=== PATIENT | female | born 1990 | race Caucasian/White ===

== ENCOUNTER 2016-11-21 20:02 | Emergency (ER) | payer MEDICAID ==
--- NOTE | 2016-11-21 20:32 | ER Document Report ---
ED Medical Screen (RME) - General Chief Complaint: Suicidal Ideation Stated Complaint: SUICIDAL IDEATION Notes: This 26-year-old female patient comes emergency room reporting hearing voices, suicidal ideation and homicidal ideation, and urged cut. All this started last night. One precipitating factor is she misses her children, who are staying with her mother by court order and child protective services. She reports that "life sucks and awoke today". Prior overdose 3 years ago. Prior episodes of deep scratching to the forearms and transverse lacerations to the forearms. She reports speaking with Dr. Dent's office and was referred to the emergency room. She states that she does want to get help this time. I have greeted and performed a rapid initial assessment of this patient. A comprehensive ED assessment and evaluation of the patient, analysis of test results and completion of the medical decision making process will be conducted by additional ED providers. TRAVEL OUTSIDE OF THE [place] IN LAST 30 DAYS: No - Related Data Allergies/Adverse Reactions: alprazolam [From Xanax] Allergy (Severe, Verified 03/30/16 15:24) CHEMICAL REACTION RESULTING IN SEIZURE amoxicillin [Amoxicillin] Allergy (Severe, Verified 03/30/16 15:24) Difficulty breathing Amphetamine Aspartate * [From Adderall] Allergy (Severe, Verified 03/30/16 15:24 ) Anaphylaxis amphetamine sulfate [From Adderall] Allergy (Severe, Verified 03/30/16 15:24) Anaphylaxis bupropion HCl [From Wellbutrin] Allergy (Severe, Verified 03/30/16 15:24) Anaphylaxis cephalexin [Cephalexin] Allergy (Severe, Verified 03/30/16 15:24) Anaphylaxis dextroamphetamine [From Adderall] Allergy (Severe, Verified 03/30/16 15:24) Anaphylaxis latex [Latex] Allergy (Severe, Verified 03/30/16 15:24) Anaphylaxis naproxen [Naproxen] Allergy (Severe, Verified 04/18/16 06:57) Anaphylaxis quetiapine fumarate [From Seroquel] Allergy (Severe, Verified 04/18/16 06:57) Anaphylaxis sertraline HCl [From Zoloft] Allergy (Severe, Verified 04/18/16 06:57) Anaphylaxis shellfish derived [Shellfish Derived] Allergy (Severe, Verified 04/18/16 06:57) Anaphylaxis tramadol [Tramadol] Allergy (Severe, Verified 04/18/16 06:57) Anaphylaxis ziprasidone HCl [From Geodon] Allergy (Severe, Verified 04/18/16 06:57) Anaphylaxis ziprasidone mesylate [From Geodon] Allergy (Severe, Verified 04/18/16 06:57) Anaphylaxis Coconut * [Coconut] Allergy (Mild, Verified 04/18/16 06:57) Pruritis aluminum hydroxide [From Maalox] Allergy (Verified 04/18/16 06:57) Anaphylaxis calcium carbonate [From Maalox] Allergy (Verified 04/18/16 06:57) Anaphylaxis Magnesium Hydroxide [From Maalox] Allergy (Verified 04/18/16 06:57) Anaphylaxis simethicone [From Maalox] Allergy (Verified 04/18/16 06:57) Anaphylaxis seafood Allergy (Uncoded 03/30/16 15:24) Past Medical History - Past Medical History Cardiac Medical History: Reports: Hx Hypertension Pulmonary Medical History: Reports: Hx Asthma, Hx Bronchitis, Hx Pneumonia Neurological Medical History: Reports: Hx Seizures - Pseudoseizures Renal/ Medical History: Denies: Hx Peritoneal Dialysis GI Medical History: Reports: Hx Gastroesophageal Reflux Disease Musculoskeltal Medical History: Reports Hx Arthritis Psychiatric Medical History: Reports: Hx Anxiety, Hx Attention Deficit Hyperactivity Disorder, Hx Bipolar Disorder, Hx Depression, Hx Post Traumatic Stress Disorder Past Surgical History: Reports: Hx Appendectomy, Hx Section, Hx Tonsillectomy, Hx Tubal Ligation - Immunizations Immunizations up to date: No Hx Diphtheria, Pertussis, Tetanus Vaccination: Yes - [id number] Physical Exam - Vital signs Vitals: Temp Pulse Resp BP Pulse Ox 97.6 F 83 20 132/83 H 97 11/21/16 20:15 11/21/16 20:15 11/21/16 20:15 11/21/16 20:15 11/21/16 20:15 Course - Vital Signs Vital signs: Temp Pulse Resp BP Pulse Ox 97.6 F 83 20 132/83 H 97 11/21/16 20:15 11/21/16 20:15 11/21/16 20:15 11/21/16 20:15 11/21/16 20:15
[2016-11-21 20:56] LABS: ABSOLUTE EOSINOPHILS # (AUTO) 0.2 10^3/uL (0.0-0.6); ABSOLUTE LYMPHOCYTES (AUTO) 2.7 10^3/uL (0.5-4.7); ABSOLUTE MONOCYTES (AUTO) 0.3 10^3/uL (0.1-1.4); ABSOLUTE NEUT (AUTO) 3.5 10^3/uL (1.7-8.2); BASOPHILS % (AUTO) 0.6 % (0-2); EOSINOPHILS % (AUTO) 3.5 % (0-6); HEMATOCRIT 38.7 % (36.0-47.0); HEMOGLOBIN 13.2 g/dL (12.0-15.5); HGB HCT DIFFERENCE 0.9; LYMPHOCYTES % (AUTO) 39.7 % (13-45); MEAN CORPUSCULAR HEMOGLOBIN 30.1 pg (27.0-33.4); MEAN CORPUSCULAR HGB CONC 34.2 g/dL (32.0-36.0); MEAN CORPUSCULAR VOLUME 88 fl (80-97); MONOCYTES % (AUTO) 4.5 % (3-13); RED CELL DISTRIBUTION WIDTH 13.6 % (11.5-14.0); SEGMENTED NEUTROPHILS % (AUTO) 51.7 % (42-78); WHITE BLOOD COUNT 6.8 10^3/uL (4.0-10.5)
[2016-11-21 20:59] LABS: APPEARANCE,URINE SLIGHTLY-CLOUDY; BILIRUBIN,URINE NEGATIVE (NEGATIVE); GLUCOSE, URINE NEGATIVE (NEGATIVE); KETONES,URINE NEGATIVE (NEGATIVE); LEUKOCYTE ESTERASE,URINE SMALL (NEGATIVE); NITRITE,URINE NEGATIVE (NEGATIVE); PROTEIN,URINE NEGATIVE (NEGATIVE); URINE SPECIFIC GRAVITY 1.011; UROBILINOGEN,URINE NEGATIVE mg/dL (<2.0)
[2016-11-21 21:14] LABS: URINE BARBITURATES SCREEN NEGATIVE; URINE METHADONE SCREEN NEGATIVE; URINE OPIATES LOW NEGATIVE; URINE PHENCYCLIDINE SCREEN NEGATIVE
[2016-11-21 21:19] LABS: ALANINE AMINOTRANSFERASE 42 U/L (9-52); ALBUMIN 4.9 g/dL (3.5-5.0); ALKALINE PHOSPHATASE 54 U/L (38-126); ANION GAP 15 (5-19); ASPARTATE AMINO TRANSFERASE 20 U/L (14-36); BILIRUBIN,DIRECT 0.1 mg/dL (0.0-0.4); BILIRUBIN,TOTAL 0.3 mg/dL (0.2-1.3); BLOOD UREA NITROGEN 10 mg/dL (7-20); CARBON DIOXIDE 20 mmol/L (22-30); CHLORIDE 109 mmol/L (98-107); CREATININE RESULT 0.59 mg/dL (0.52-1.25); GLUCOSE 129 mg/dL (75-110); POTASSIUM 4.4 mmol/L (3.6-5.0); SODIUM 143.7 mmol/L (137-145); TOTAL PROTEIN 7.3 g/dL (6.3-8.2)
[2016-11-21 21:20] LABS: ALCOHOL < 10 mg/dL (NONE DETECTED)
--- NOTE | 2016-11-21 22:28 | ER Document Report ---
ED General - General Chief Complaint: Suicidal Ideation Stated Complaint: SUICIDAL IDEATION Time seen by provider: 22:28 Mode of Arrival: Ambulatory TRAVEL OUTSIDE OF THE [place] IN LAST 30 DAYS: No - HPI Notes: This 26-year-old female patient comes emergency room reporting hearing voices, suicidal ideation and homicidal ideation, and urged cut. All this started last night. One precipitating factor is she misses her children, who are staying with her mother by court order and child protective services. She reports that "life sucks and awoke today". Prior overdose 3 years ago. Prior episodes of deep scratching to the forearms and transverse lacerations to the forearms. She reports speaking with Dr. Dent's office and was referred to the emergency room. She states that she does want to get help this time. Patient reports homicidal ideation towards her mother, who has custody of her children. Patient currently lives with her ex-boyfriend's sister. The patient reports she recently had a tooth removed and is on clindamycin. - Related Data Allergies/Adverse Reactions: alprazolam [From Xanax] Allergy (Severe, Verified 03/30/16 15:24) CHEMICAL REACTION RESULTING IN SEIZURE amoxicillin [Amoxicillin] Allergy (Severe, Verified 03/30/16 15:24) Difficulty breathing Amphetamine Aspartate * [From Adderall] Allergy (Severe, Verified 03/30/16 15:24 ) Anaphylaxis amphetamine sulfate [From Adderall] Allergy (Severe, Verified 03/30/16 15:24) Anaphylaxis bupropion HCl [From Wellbutrin] Allergy (Severe, Verified 03/30/16 15:24) Anaphylaxis cephalexin [Cephalexin] Allergy (Severe, Verified 03/30/16 15:24) Anaphylaxis dextroamphetamine [From Adderall] Allergy (Severe, Verified 03/30/16 15:24) Anaphylaxis latex [Latex] Allergy (Severe, Verified 03/30/16 15:24) Anaphylaxis naproxen [Naproxen] Allergy (Severe, Verified 04/18/16 06:57) Anaphylaxis quetiapine fumarate [From Seroquel] Allergy (Severe, Verified 04/18/16 06:57) Anaphylaxis sertraline HCl [From Zoloft] Allergy (Severe, Verified 04/18/16 06:57) Anaphylaxis shellfish derived [Shellfish Derived] Allergy (Severe, Verified 04/18/16 06:57) Anaphylaxis tramadol [Tramadol] Allergy (Severe, Verified 04/18/16 06:57) Anaphylaxis ziprasidone HCl [From Geodon] Allergy (Severe, Verified 04/18/16 06:57) Anaphylaxis ziprasidone mesylate [From Geodon] Allergy (Severe, Verified 04/18/16 06:57) Anaphylaxis Coconut * [Coconut] Allergy (Mild, Verified 04/18/16 06:57) Pruritis aluminum hydroxide [From Maalox] Allergy (Verified 04/18/16 06:57) Anaphylaxis calcium carbonate [From Maalox] Allergy (Verified 04/18/16 06:57) Anaphylaxis Magnesium Hydroxide [From Maalox] Allergy (Verified 04/18/16 06:57) Anaphylaxis simethicone [From Maalox] Allergy (Verified 04/18/16 06:57) Anaphylaxis seafood Allergy (Uncoded 03/30/16 15:24) Past Medical History - General Information source: Patient - Social History Smoking Status: Current Some Day Smoker Cigarette use (# per day): No - marijuana only Smoking Education Provided: Yes Frequency of alcohol use: None Drug Abuse: Marijuana Lives with: Friend Family History: Reviewed & Not Pertinent, Malignancy Patient has suicidal ideation: Yes Patient has homicidal ideation: Yes - Past Medical History Cardiac Medical History: Reports: Hx Hypertension Pulmonary Medical History: Reports: Hx Asthma, Hx Bronchitis, Hx Pneumonia Neurological Medical History: Reports: Hx Seizures - Pseudoseizures Renal/ Medical History: Denies: Hx Peritoneal Dialysis GI Medical History: Reports: Hx Gastroesophageal Reflux Disease Musculoskeltal Medical History: Reports Hx Arthritis Psychiatric Medical History: Reports: Hx Anxiety, Hx Attention Deficit Hyperactivity Disorder, Hx Bipolar Disorder, Hx Depression, Hx Post Traumatic Stress Disorder Past Surgical History: Reports: Hx Appendectomy, Hx Section, Hx Tonsillectomy, Hx Tubal Ligation - Immunizations Immunizations up to date: No Hx Diphtheria, Pertussis, Tetanus Vaccination: Yes - [id number] Hx Pneumococcal Vaccination: 08/13/13 Review of Systems - Review of Systems Notes: REVIEW OF SYSTEMS: CONSTITUTIONAL : Denies fever, chills, or sweats. Denies recent illness. EENT: Denies eye, ear, throat pain or symptoms. Denies nasal or sinus congestion or discharge. Denies throat, tongue, or mouth swelling or difficulty swallowing. CARDIOVASCULAR: Denies chest pain. Denies palpitations or racing or irregular heart beat. Denies ankle edema. RESPIRATORY: Denies cough, cold, or chest congestion. Denies shortness of breath, difficulty breathing, or wheezing. GASTROINTESTINAL: Denies abdominal pain or distention. Denies nausea, vomiting , or diarrhea. Denies blood in vomitus, stools, or per rectum. Denies black, tarry stools. Denies constipation. GENITOURINARY: Denies difficulty urinating, painful urination, burning, frequency, blood in urine, or discharge. FEMALE GENITOURINARY: Denies vaginal bleeding, heavy or abnormal periods, irregular periods. Denies vaginal discharge or odor. MUSCULOSKELETAL: Denies back or neck pain or stiffness. Denies joint pain or swelling. SKIN: Denies rash, lesions or sores. HEMATOLOGIC : Denies easy bruising or bleeding. LYMPHATIC: Denies swollen, enlarged glands. NEUROLOGICAL: Denies confusion or altered mental status. Denies passing out or loss of consciousness. Denies dizziness or lightheadedness. Denies headache. Denies weakness or paralysis or loss of use of either side. Denies problems with gait or speech. Denies sensory loss, numbness, or tingling. Denies seizures. PSYCHIATRIC: She is awake. Patient reports suicidal ideation, homicidal ideation and depression. She states she is hearing voices which are telling her to hurt herself, but she does not recognize who the voices are. ALL OTHER SYSTEMS REVIEWED AND NEGATIVE. Dictation was performed using [employer] voice recognition software -: Yes All other systems reviewed and negative Physical Exam - Vital signs Vitals: Temp Pulse Resp BP Pulse Ox 97.6 F 83 20 132/83 H 97 11/21/16 20:15 11/21/16 20:15 11/21/16 20:15 11/21/16 20:15 11/21/16 20:15 - Notes Notes: PHYSICAL EXAMINATION: GENERAL: Well-appearing, well-nourished and in no acute distress. HEAD: Atraumatic, normocephalic. EYES: Pupils equal round and reactive to light, extraocular movements intact, conjunctiva are normal. ENT: Nares patent. Oropharynx clear with exception of poor dentition. Recent dental extraction #18, site appears otherwise clear. Moist mucous membranes. Posterior pharynx is clear. No evidence of August's. NECK: Normal range of motion, supple without lymphadenopathy LUNGS: Breath sounds clear to auscultation bilaterally and equal. No wheezes rales or rhonchi. HEART: Regular rate and rhythm without murmurs ABDOMEN: Soft, nontender, nondistended abdomen. No guarding, no rebound. No masses appreciated. Female : deferred Musculoskeletal: Normal range of motion, no pitting or edema. No cyanosis. NEUROLOGICAL: Cranial nerves grossly intact. Normal speech, normal gait. Normal sensory, motor exams PSYCH: Flat affect. Patient is depressed and slow to respond. Patient reports homicidal ideation and hallucinations, but she does not appear to be reacting to hallucinations. She is currently asking to speak with her boyfriend. SKIN: Warm, Dry, normal turgor, no rashes or lesions noted. Course - Re-evaluation Re-evalutation: 11/21/16 22:56 Patient was given Ativan by mouth. She stated she had tolerated the Ativan in the past. The patient will be restarted on her clindamycin which she's taken to the recent dental extraction. Patient was given Tylenol for pain. 11/21/16 23:33 Patient somewhat subtherapeutic on her Dilantin level of 5.7. She states she is normally on Dilantin 200 mg by mouth twice a day. Pulse 80 Dilantin is started. 11/22/16 01:20 Patient is medically cleared for psychiatric evaluation. Given her suicidal and homicidal ideation and auditory hallucinations, TIBC papers are drawn out. - Vital Signs Vital signs: Temp Pulse Resp BP Pulse Ox 97.6 F 83 16 132/83 H 97 11/21/16 20:15 11/21/16 20:15 11/21/16 22:30 11/21/16 20:15 11/21/16 20:15 - Laboratory Result Diagrams: 11/21/16 20:35 11/21/16 20:35 Laboratory results interpreted by me: 11/21/16 11/21/16 11/21/16 20:35 20:35 20:35 Chloride 109 H Carbon Dioxide 20 L Glucose 129 H Urine Blood SMALL H Ur Leukocyte Esterase SMALL H Salicylates < 1.0 L Acetaminophen < 10 L Phenytoin 5.7 L Discharge - Discharge Clinical Impression: Suicidal ideation, Homicidal ideation, Auditory hallucinations Depression Qualifiers: Depression Type: major depressive disorder Major depression recurrence: recurrent Active/Remission status: currently active Major depression episode severity: moderate Qualified Code(s): F33.1 - Major depressive disorder, recurrent, moderate
[2016-11-21] MEDS ORDERED: LORAZEPAM 1 MG TABLET PO ONE (22:42)
[2016-11-21] MEDS ORDERED: ACETAMINOPHEN 325 MG TABLET PO PRN (22:42)
[2016-11-21] MEDS ORDERED: CLINDAMYCIN HCL 150 MG CAPSULE PO SCH (22:45)
[2016-11-21] MEDS ORDERED: CLINDAMYCIN HCL 150 MG CAPSULE PO ONE (23:00)
[2016-11-21] MEDS ORDERED: PHENYTOIN SODIUM EXTENDED 100 MG CAPSULE PO SCH (23:45)
[2016-11-21] MEDS ORDERED: PHENYTOIN SODIUM EXTENDED 100 MG CAPSULE PO ONE (23:59)
--- NOTE | 2016-11-22 07:19 | EKG REPORT ---
SEVERITY:- NORMAL ECG - SINUS RHYTHM : Confirmed by: Lul Collins MD 22-Nov-2016 07:18:36
[2016-11-22 12:48] VITALS: BP 127/73
== END 2016-11-22 12:48 | disposition home or self-care (01) ==
LOC: ER 20:02
DX: R45.851 Suicidal ideations (principal); R45.850 Homicidal ideations; R44.0 Auditory hallucinations; F33.1 Major depressive disorder, recurrent, moderate; F17.200 Nicotine dependence, unspecified, uncomplicated; I10 Essential (primary) hypertension; Z88.0 Allergy status to penicillin; Z88.6 Allergy status to analgesic agent; Z91.040 Latex allergy status; Z91.013 Allergy to seafood; Z88.3 Allergy status to other anti-infective agents; Z91.018 Allergy to other foods; Z98.51 Tubal ligation status
CPT/HCPCS: 93005; 99285; 36415; 80307 ×4; 80185; 84703; 85025; 80053; 81001; 93010; J3490 ×4

== ENCOUNTER 2017-01-09 14:29 | Emergency (ER) | payer MEDICAID ==
[2017-01-09] MEDS ORDERED: DIPHENHYDRAMINE HCL 50 MG/ML VIAL IM ONE (16:52)
[2017-01-09] MEDS ORDERED: HALOPERIDOL LACTATE INJ 5 MG/1 ML VIAL IM ONE (16:52)
--- NOTE | 2017-01-09 17:35 | PSYCHOLOGICAL NOTE ---
Psych Note - Psych Note Psych Note: Patient is a 26 year old female who presents via EMS with c/o SI, with plan to jump off a bridge. Patient was found digging in her self inflicted wounds on her arms. Patient was placed in 4pt restraints for her safety. Patient will be evaluated at a later time.
[2017-01-09 17:41] LABS: ABSOLUTE LYMPHOCYTES (AUTO) 2.1 10^3/uL (0.5-4.7); ABSOLUTE MONOCYTES (AUTO) 0.5 10^3/uL (0.1-1.4); ABSOLUTE NEUT (AUTO) 4.1 10^3/uL (1.7-8.2); BASOPHILS % (AUTO) 0.3 % (0-2); EOSINOPHILS % (AUTO) 0.6 % (0-6); HEMATOCRIT 38.8 % (36.0-47.0); HEMOGLOBIN 13.4 g/dL (12.0-15.5); HGB HCT DIFFERENCE 1.4; LYMPHOCYTES % (AUTO) 31.2 % (13-45); MEAN CORPUSCULAR HGB CONC 34.6 g/dL (32.0-36.0); MEAN CORPUSCULAR VOLUME 89 fl (80-97); MONOCYTES % (AUTO) 7.5 % (3-13); RED BLOOD COUNT 4.34 10^6/uL (3.72-5.28); RED CELL DISTRIBUTION WIDTH 13.3 % (11.5-14.0); SEGMENTED NEUTROPHILS % (AUTO) 60.4 % (42-78); WHITE BLOOD COUNT 6.7 10^3/uL (4.0-10.5)
[2017-01-09 18:11] LABS: ALANINE AMINOTRANSFERASE 32 U/L (9-52); ALBUMIN 4.6 g/dL (3.5-5.0); ALKALINE PHOSPHATASE 57 U/L (38-126); ANION GAP 12 (5-19); ASPARTATE AMINO TRANSFERASE 16 U/L (14-36); BILIRUBIN,DIRECT 0.2 mg/dL (0.0-0.4); BILIRUBIN,TOTAL 0.6 mg/dL (0.2-1.3); BLOOD UREA NITROGEN 8 mg/dL (7-20); CARBON DIOXIDE 20 mmol/L (22-30); CHLORIDE 108 mmol/L (98-107); CREATININE RESULT 0.53 mg/dL (0.52-1.25); GLUCOSE 92 mg/dL (75-110); POTASSIUM 3.9 mmol/L (3.6-5.0); SODIUM 140.1 mmol/L (137-145); TOTAL PROTEIN 7.4 g/dL (6.3-8.2)
[2017-01-09 18:12] LABS: ALCOHOL < 10 mg/dL (NONE DETECTED)
[2017-01-09] MEDS ORDERED: PHENYTOIN SODIUM EXTENDED 100 MG CAPSULE PO ONE (18:22)
[2017-01-09 18:47] LABS: APPEARANCE,URINE SLIGHTLY-CLOUDY; BILIRUBIN,URINE NEGATIVE (NEGATIVE); GLUCOSE, URINE NEGATIVE (NEGATIVE); KETONES,URINE NEGATIVE (NEGATIVE); LEUKOCYTE ESTERASE,URINE SMALL (NEGATIVE); NITRITE,URINE NEGATIVE (NEGATIVE); PROTEIN,URINE NEGATIVE (NEGATIVE); URINE SPECIFIC GRAVITY 1.013; UROBILINOGEN,URINE NEGATIVE mg/dL (<2.0)
[2017-01-09 19:00] LABS: URINE BARBITURATES SCREEN NEGATIVE; URINE METHADONE SCREEN NEGATIVE; URINE OPIATES LOW NEGATIVE; URINE PHENCYCLIDINE SCREEN NEGATIVE
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
[2017-01-09] MEDS ORDERED: ZOLPIDEM TARTRATE 5 MG TABLET PO ONE (21:41)
--- NOTE | 2017-01-10 00:12 | EKG REPORT ---
SEVERITY:- NORMAL ECG - SINUS RHYTHM : Confirmed by: Augustin Rogel 10-Jan-2017 00:11:37
[2017-01-10] MEDS ORDERED: PHENYTOIN SODIUM EXTENDED 100 MG CAPSULE PO SCH (10:00)
--- NOTE | 2017-01-10 10:55 | ER Document Report ---
Doctor's Note Notes: 01/10/17 10:55 As the rounding physician for our psychiatric patients, I have reviewed the chart, vitals, lab work. Patient has been examined and noted to be stable at this time . I am awaiting mental health in put regarding placement
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
[2017-01-10 13:31] VITALS: BP 96/53
== END 2017-01-10 13:40 | disposition home or self-care (01) ==
LOC: ER 14:29
DX: R45.851 Suicidal ideations (principal); F31.9 Bipolar disorder, unspecified; F60.3 Borderline personality disorder; Z78.1 Physical restraint status; F17.200 Nicotine dependence, unspecified, uncomplicated; J45.909 Unspecified asthma, uncomplicated; I10 Essential (primary) hypertension; Z88.0 Allergy status to penicillin; Z91.040 Latex allergy status; Z91.013 Allergy to seafood; Z91.018 Allergy to other foods; Z98.51 Tubal ligation status
CPT/HCPCS: 93005; 99285; 36415; 80307 ×4; 84702; 80185; 85025; 80053; 81001; 93010; J3490

== ENCOUNTER 2017-02-21 09:08 | Emergency (ER) | payer MEDICAID ==
--- NOTE | 2017-02-21 09:55 | ER Document Report ---
HPI - HPI Patient complains to provider of: left foot pain Pain Level: 4 Context: 26 yo female c/o pain to left lateral foot pain x 3 days. pt was playing in the pool, rolled her foot and her cousins were jumping on her foot. Associated Symptoms: None Exacerbated by: Walking Relieved by: Denies Similar symptoms previously: No Recently seen / treated by doctor: No - ROS Systems Reviewed and Negative: Yes All other systems reviewed and negative - REPRODUCTIVE Reproductive: REPORTS: : - DERM Skin Color: Normal Past Medical History - General Information source: Patient - Social History Smoking Status: Unknown if Ever Smoked Frequency of alcohol use: None Drug Abuse: None Lives with: Family Family History: Reviewed & Not Pertinent, Malignancy Patient has suicidal ideation: No Patient has homicidal ideation: No - Past Medical History Cardiac Medical History: Reports: Hx Hypertension Pulmonary Medical History: Reports: Hx Asthma, Hx Bronchitis, Hx Pneumonia Neurological Medical History: Reports: Hx Seizures - Pseudoseizures Renal/ Medical History: Denies: Hx Peritoneal Dialysis GI Medical History: Reports: Hx Gastroesophageal Reflux Disease Musculoskeltal Medical History: Reports Hx Arthritis Psychiatric Medical History: Reports: Hx Anxiety, Hx Attention Deficit Hyperactivity Disorder, Hx Bipolar Disorder, Hx Depression, Hx Post Traumatic Stress Disorder Past Surgical History: Reports: Hx Appendectomy, Hx Section, Hx Tonsillectomy, Hx Tubal Ligation - Immunizations Immunizations up to date: No Hx Diphtheria, Pertussis, Tetanus Vaccination: Yes - [id number] Hx Pneumococcal Vaccination: 08/13/13 Vertical Provider Document - CONSTITUTIONAL Agree With Documented VS: Yes Exam Limitations: No Limitations - INFECTION CONTROL TRAVEL OUTSIDE OF THE [place] IN LAST 30 DAYS: No - HEENT HEENT: Atraumatic, PERRLA - NECK Neck: Normal Inspection, Supple - RESPIRATORY Respiratory: Breath Sounds Normal, No Respiratory Distress O2 Sat by Pulse Oximetry: 98 - CARDIOVASCULAR Cardiovascular: Regular Rate, Regular Rhythm - MUSCULOSKELETAL/EXTREMETIES Musculoskeletal/Extremeties: Tender - left lateral foot tenderness along 5th metatarsal. no deformity, no echymosis, no edema - NEURO Level of Consciousness: Awake, Alert, Appropriate - DERM Integumentary: Warm, Dry Course - Re-evaluation Re-evalutation: 02/21/17 10:43 xray is negative. results reviewed with patient. will apply dl wrap here. stable for discharge - Vital Signs Vital signs: Temp Pulse Resp BP Pulse Ox 98.3 F 73 20 124/76 98 02/21/17 09:12 02/21/17 09:12 02/21/17 09:12 02/21/17 09:12 02/21/17 09:12 Procedures - Immobilization left foot Pre-Proc Neuro Vasc Exam: Normal Immobilizer type: Dl wrap Performed by: PCT Post-Proc Neuro Vasc Exam: Normal Alignment checked and good: Yes Discharge - Discharge Clinical Impression: Foot sprain Qualifiers: Encounter type: initial encounter Laterality: left Qualified Code(s): S93.602A - Unspecified sprain of left foot, initial encounter Condition: Stable Disposition: HOME, SELF-CARE Instructions: Ice Packs ([facility]), Sprain ([facility]), Dl Wrap ([facility]) Additional Instructions: wear dl wrap for comfort ice and elevate Tylenol for discomfort follow up with your primary care if pain persists more than 10 days
--- NOTE | 2017-02-21 10:49 | RADIOLOGY REPORT (SQ) ---
EXAM DESCRIPTION: FOOT LEFT COMPLETE COMPLETED DATE/TIME: 02/21/2017 10:42 am REASON FOR STUDY: rolled foot COMPARISON: None. NUMBER OF VIEWS: Three views. TECHNIQUE: AP, lateral and oblique radiographic images acquired of the left foot. LIMITATIONS: None. FINDINGS: MINERALIZATION: Normal. BONES: No acute fracture or dislocation. No worrisome bone lesions. JOINTS: No effusions. SOFT TISSUES: No soft tissue swelling. No foreign body. OTHER: No other significant finding. IMPRESSION: NEGATIVE STUDY OF THE LEFT FOOT. NO RADIOGRAPHIC EVIDENCE OF ACUTE INJURY. TECHNICAL DOCUMENTATION: JOB ID: [id number] [employer]- All Rights Reserved
[2017-02-21 11:08] VITALS: BP 108/71
== END 2017-02-21 11:10 | disposition home or self-care (01) ==
LOC: ER 09:08
DX: S93.602A Unspecified sprain of left foot, initial encounter (principal); M79.672 Pain in left foot; W51.XXXA Accidental striking against or bumped into by another person, initial encounter; Y93.19 Activity, other involving water and watercraft; Y92.34 Swimming pool (public) as the place of occurrence of the external cause; I10 Essential (primary) hypertension; J45.909 Unspecified asthma, uncomplicated
CPT/HCPCS: 99283

== ENCOUNTER 2017-03-05 06:15 | Emergency (ER) | payer MEDICAID ==
--- NOTE | 2017-03-05 06:37 | ER Document Report ---
ED General Pain - General Mode of Arrival: Ambulatory Information source: Patient TRAVEL OUTSIDE OF THE [place] IN LAST 30 DAYS: No - HPI Patient complains to provider of: low back pain Associated symptoms: Other - See above - General Chief Complaint: Low Back Pain Stated Complaint: BACK/HIP PAIN Notes: Patient is a 26 year old female, with a past medical history including bipolar disorder, who presents to the emergency department complaining of low back pain onset yesterday afternoon. Patient states that she was laying on her boyfriend' s lap when the pain began and that it radiates from her lower right back into her left hip. Patient reports she has had low back pain before with her past but that it did not radiate into her hip. Patient has been taking Tylenol at home with no relief. PCP: [facility] (FILOMENA OLIVEIRA) - Related Data Allergies/Adverse Reactions: alprazolam [From Xanax] Allergy (Severe, Verified 03/05/17 06:20) CHEMICAL REACTION RESULTING IN SEIZURE amoxicillin [Amoxicillin] Allergy (Severe, Verified 03/05/17 06:20) Difficulty breathing Amphetamine Aspartate * [From Adderall] Allergy (Severe, Verified 03/05/17 06:20 ) Anaphylaxis amphetamine sulfate [From Adderall] Allergy (Severe, Verified 03/05/17 06:20) Anaphylaxis bupropion HCl [From Wellbutrin] Allergy (Severe, Verified 03/05/17 06:20) Anaphylaxis cephalexin [Cephalexin] Allergy (Severe, Verified 03/05/17 06:20) Anaphylaxis dextroamphetamine [From Adderall] Allergy (Severe, Verified 03/05/17 06:20) Anaphylaxis latex [Latex] Allergy (Severe, Verified 03/05/17 06:20) Anaphylaxis naproxen [Naproxen] Allergy (Severe, Verified 03/05/17 06:20) Anaphylaxis quetiapine fumarate [From Seroquel] Allergy (Severe, Verified 03/05/17 06:20) Anaphylaxis sertraline HCl [From Zoloft] Allergy (Severe, Verified 03/05/17 06:20) Anaphylaxis shellfish derived [Shellfish Derived] Allergy (Severe, Verified 03/05/17 06:20) Anaphylaxis tramadol [Tramadol] Allergy (Severe, Verified 03/05/17 06:20) Anaphylaxis ziprasidone HCl [From Geodon] Allergy (Severe, Verified 03/05/17 06:20) Anaphylaxis ziprasidone mesylate [From Geodon] Allergy (Severe, Verified 03/05/17 06:20) Anaphylaxis aluminum hydroxide [From Maalox] Allergy (Verified 03/05/17 06:20) Anaphylaxis calcium carbonate [From Maalox] Allergy (Verified 03/05/17 06:20) Anaphylaxis Magnesium Hydroxide [From Maalox] Allergy (Verified 03/05/17 06:20) Anaphylaxis simethicone [From Maalox] Allergy (Verified 03/05/17 06:20) Anaphylaxis seafood Allergy (Uncoded 03/05/17 06:20) Past Medical History - General Information source: Patient - Social History Smoking Status: Current Every Day Smoker Lives with: Homeless - residential Family History: Reviewed & Not Pertinent, Malignancy - Past Medical History Cardiac Medical History: Reports: Hx Hypertension Pulmonary Medical History: Reports: Hx Asthma, Hx Bronchitis, Hx Pneumonia Neurological Medical History: Reports: Hx Seizures - Pseudoseizures GI Medical History: Reports: Hx Gastroesophageal Reflux Disease Musculoskeltal Medical History: Reports Hx Arthritis Psychiatric Medical History: Reports: Hx Anxiety, Hx Attention Deficit Hyperactivity Disorder, Hx Bipolar Disorder, Hx Depression, Hx Post Traumatic Stress Disorder Past Surgical History: Reports: Hx Appendectomy, Hx Section, Hx Tonsillectomy, Hx Tubal Ligation - Immunizations Immunizations up to date: No Hx Diphtheria, Pertussis, Tetanus Vaccination: Yes - [id number] Hx Pneumococcal Vaccination: 08/13/13 Review of Systems - Review of Systems Constitutional: No symptoms reported EENT: No symptoms reported Cardiovascular: No symptoms reported Respiratory: No symptoms reported Gastrointestinal: No symptoms reported Genitourinary: No symptoms reported Female Genitourinary: No symptoms reported Musculoskeletal: See HPI, Back pain Skin: No symptoms reported Hematologic/Lymphatic: No symptoms reported Neurological/Psychological: No symptoms reported -: Yes All other systems reviewed and negative Physical Exam - Vital signs Interpretation: Normal - General General appearance: Appears well, Alert - HEENT Head: Normocephalic, Atraumatic - Respiratory Respiratory status: No respiratory distress Chest status: Nontender Breath sounds: Normal Chest palpation: Normal - Cardiovascular Rhythm: Regular Heart sounds: Normal auscultation Murmur: No - Abdominal Inspection: Obese Distension: No distension Tenderness: Nontender - Back Back: Tender - Lumbar and sacral back muscles are tender to palpation - Extremities General upper extremity: Normal inspection General lower extremity: Normal inspection - Neurological Neuro grossly intact: Yes Cognition: Normal Orientation: AAOx4 Hardy Coma Scale Eye Opening: Spontaneous Hardy Coma Scale Verbal: Oriented Hardy Coma Scale Motor: Obeys Commands Jessa Coma Scale Total: 15 Speech: Normal - Psychological Associated symptoms: Normal affect, Normal mood - Skin Skin Temperature: Warm Skin Moisture: Dry Skin Color: Normal Discharge - Discharge Clinical Impression: Acute lumbar back pain Qualifiers: Back pain laterality: unspecified Sciatica presence: without sciatica Qualified Code(s): M54.5 - Low back pain Additional Instructions: Low Back Pain: Three out of every four people will have an episode of disabling back pain during their lifetime. Most commonly the pain is due to straining of the muscles and ligaments in the low back. Usual treatment includes: (1) Rest on a firm surface. Avoid lying on your stomach. (2) Ice pack the painful area. After a few days, gentle heat may be used intermittently to relax the area, or ice packs can be continued. (3) Medication may be needed -- muscle relaxers and antiinflammatory medicines are commonly used. (4) As the back improves, exercises are prescribed to strengthen the back and abdominal muscles. Your doctor will advise you on the proper care for your back at each stage in your recovery. You may be better in a few days -- or healing may take several weeks. If new symptoms of a "herniated disc" (radiation of pain, numbness, or tingling down the back of the leg or weakness in the leg) occur, you should be re-examined. Further testing may be necessary. Take the medication as prescribed. Limit activities that make the back hurt worse. Try moist heat to the painful low back muscles. Follow-up with your primary care provider if not improving. Prescriptions: Cyclobenzaprine HCl [Flexeril 5 mg Tablet] 5 mg PO TID PRN #15 tablet PRN Reason: Ibuprofen [Motrin 600 mg Tablet] 600 mg PO Q8 PRN #25 tablet PRN Reason: Evelynibshannan Attestation: 03/05/17 06:48 I personally performed the services described in the documentation, reviewed and edited the documentation which was dictated to the scribe in my presence, and it accurately records my words and actions. ([employer]) Scribe Documentation - Scribe Written by Scribe:: tony Long, 03/05/17, 0644 acting as scribe for :: Chuck
[2017-03-05] MEDS ORDERED: IBUPROFEN 800 MG TABLET PO ONE (06:44)
[2017-03-05] MEDS ORDERED: CYCLOBENZAPRINE HCL 10 MG TABLET PO ONE (06:44)
== END 2017-03-05 07:01 | disposition home or self-care (01) ==
LOC: ER 06:15
DX: M54.5 Low back pain (principal); I10 Essential (primary) hypertension; J45.909 Unspecified asthma, uncomplicated; F17.200 Nicotine dependence, unspecified, uncomplicated; Z88.0 Allergy status to penicillin; Z87.892 Personal history of anaphylaxis; Z88.1 Allergy status to other antibiotic agents; Z88.8 Allergy status to other drugs, medicaments and biological substances; Z91.040 Latex allergy status; Z91.013 Allergy to seafood; Z88.5 Allergy status to narcotic agent
CPT/HCPCS: 99283; J3490

== ENCOUNTER 2017-03-22 21:32 | Emergency (ER) | payer MEDICAID ==
--- NOTE | 2017-03-23 00:05 | ER Document Report ---
ED Allergic Reaction - General Mode of Arrival: Ambulatory Information source: Patient TRAVEL OUTSIDE OF THE U.S[place] IN LAST 30 DAYS: No - HPI Onset: This evening - Refer to HPI notes Medication Exposure: toradol Associated symptoms: Fainting, Other - weakness Similar symptoms previously: No Recently seen / treated by doctor: No - General Chief Complaint: Allergic Reaction Stated Complaint: POSSIBLE ALLERGIC REACTION FROM MEDICATION Time Seen by Provider: 03/22/17 23:51 - HPI Notes: Patient is a 26-year old female presenting to the emergency department for a possible allergic reaction. Patient states she had some teeth pulled today at [facility] and took Toradol. Patient states while she was at the senior care she had a syncopal episode and is having some weakness. Patient does have a history of pseudoseizures. Patient states she was at the senior care and laid down on her bed for a while. Patient states she awoke to a person saying her name and shaking her. Patient asked what happened and was told that her "eyes were fluttering like they didn't want to open." Patient also states she then felt weak and she almost fell a few times. Patient also complains of some chest pain and states her face was on fire. Patient claims that she is allergic to tramadol, ibuprofen, and now toradol. Patient's record on the [place] Controlled Substance Reporting System shows that she filled a prescription for tramadol on 03/15/17 and hydrocodine on . [facility] that she received Tramadol, Motrin, and Toradol several times in the emergency department. Patient received Motrin on in the ED as well as in 2014 and in 2016 x2. Patient also denied her diagnosis of pseudoseizures which is in her record. PCP: [facility] [place] (MICHAEL LYNN) - Related Data Allergies/Adverse Reactions: alprazolam [From Xanax] Allergy (Severe, Verified 03/23/17 00:09) CHEMICAL REACTION RESULTING IN SEIZURE amoxicillin [Amoxicillin] Allergy (Severe, Verified 03/23/17 00:09) Difficulty breathing Amphetamine Aspartate * [From Adderall] Allergy (Severe, Verified 03/23/17 00:09 ) Anaphylaxis amphetamine sulfate [From Adderall] Allergy (Severe, Verified 03/23/17 00:09) Anaphylaxis bupropion HCl [From Wellbutrin] Allergy (Severe, Verified 03/23/17 00:09) Anaphylaxis cephalexin [Cephalexin] Allergy (Severe, Verified 03/23/17 00:09) Anaphylaxis dextroamphetamine [From Adderall] Allergy (Severe, Verified 03/23/17 00:09) Anaphylaxis latex [Latex] Allergy (Severe, Verified 03/23/17 00:09) Anaphylaxis naproxen [Naproxen] Allergy (Severe, Verified 03/23/17 00:09) Anaphylaxis quetiapine fumarate [From Seroquel] Allergy (Severe, Verified 03/23/17 00:09) Anaphylaxis sertraline HCl [From Zoloft] Allergy (Severe, Verified 03/23/17 00:09) Anaphylaxis shellfish derived [Shellfish Derived] Allergy (Severe, Verified 03/23/17 00:09) Anaphylaxis tramadol [Tramadol] Allergy (Severe, Verified 03/23/17 00:09) Anaphylaxis ziprasidone HCl [From Geodon] Allergy (Severe, Verified 03/23/17 00:09) Anaphylaxis ziprasidone mesylate [From Geodon] Allergy (Severe, Verified 03/23/17 00:09) Anaphylaxis aluminum hydroxide [From Maalox] Allergy (Verified 03/23/17 00:09) Anaphylaxis calcium carbonate [From Maalox] Allergy (Verified 03/23/17 00:09) Anaphylaxis Magnesium Hydroxide [From Maalox] Allergy (Verified 03/23/17 00:09) Anaphylaxis simethicone [From Maalox] Allergy (Verified 03/23/17 00:09) Anaphylaxis seafood Allergy (Uncoded 03/05/17 06:20) Past Medical History - General Information source: Patient - Social History Smoking Status: Current Every Day Smoker Lives with: Homeless - senior care Family History: Malignancy Patient has suicidal ideation: No Patient has homicidal ideation: No - Past Medical History Cardiac Medical History: Reports: Hx Hypertension Pulmonary Medical History: Reports: Hx Asthma, Hx Bronchitis, Hx Pneumonia Neurological Medical History: Reports: Hx Seizures - Pseudoseizures GI Medical History: Reports: Hx Gastroesophageal Reflux Disease Musculoskeltal Medical History: Reports Hx Arthritis Psychiatric Medical History: Reports: Hx Anxiety, Hx Attention Deficit Hyperactivity Disorder, Hx Bipolar Disorder, Hx Depression, Hx Post Traumatic Stress Disorder Past Surgical History: Reports: Hx Appendectomy, Hx Section, Hx Tonsillectomy, Hx Tubal Ligation - Immunizations Immunizations up to date: No Hx Diphtheria, Pertussis, Tetanus Vaccination: Yes - [id number] Hx Pneumococcal Vaccination: 08/13/13 Review of Systems - Review of Systems Constitutional: See HPI, Weakness EENT: See HPI Cardiovascular: See HPI, Syncope Respiratory: No symptoms reported Gastrointestinal: No symptoms reported Genitourinary: No symptoms reported Female Genitourinary: No symptoms reported Musculoskeletal: No symptoms reported Skin: No symptoms reported Hematologic/Lymphatic: No symptoms reported Neurological/Psychological: No symptoms reported -: Yes All other systems reviewed and negative Physical Exam - Vital signs Interpretation: Normal - Vital signs Vitals: Temp Pulse Resp BP Pulse Ox 97.8 F 64 16 118/78 99 03/22/17 21:47 03/22/17 21:47 03/22/17 21:47 03/22/17 21:47 03/22/17 21:47 - Notes Notes: GENERAL: Alert, interacts well. No acute distress. HEAD: Normocephalic, atraumatic. EYES: Appear normal. Pupils equal, round, and reactive to light. ENT: Moist mucus membranes, tongue midline. Poor dentition. Missing front tooth #9, 2 upper molar/pre-molars have been extracted and have a normal post op extraction apperance with no active bleeding or sign of infection. NECK: Full range of motion. Supple. Trachea midline. LUNGS: No respiratory distress. HEART: Regular rate. EXTREMITIES: Moves all 4 extremities spontaneously. Normal strength. No edema. NEUROLOGICAL: Alert and oriented x3. Normal speech. No focal neurological deficits. GSC 15. PSYCH: Normal affect, normal mood. SKIN: Warm, dry, normal turgor. No rashes or lesions noted. (MICHAEL LYNN) Discharge - Discharge Clinical Impression: Weakness Disposition: HOME, SELF-CARE Additional Instructions: Normal Exam and Workup At this time, your examination shows no significant abnormality. No significant abnormal physical findings are noted. Review of your records shows that you did receive a prescription for tramadol 1 week ago. You have received tramadol, Toradol, and Motrin several times in the past without reactions noted. As you are concerned he may have reacted to the Toradol tablets today , you should stop taking them and take only Tylenol for your pain if needed. Fluids, get plenty of rest. Follow-up with a local medical doctor as needed. You should return or follow up as you were instructed on your visit today for further evaluation if your symptoms do not resolve. Scribe Attestation: 03/23/17 00:29 I personally performed the services described in the documentation, reviewed and edited the documentation which was dictated to the scribe in my presence, and it accurately records my words and actions. ([employer]) Scribe Documentation - Scribe Written by Felice:: Felice Bethea 03/23/17 0010 acting as scribe for :: Chuck
[2017-03-23 00:42] VITALS: BP 110/64
== END 2017-03-23 00:45 | disposition home or self-care (01) ==
LOC: ER 21:32
DX: R53.1 Weakness (principal); R55 Syncope and collapse; R07.9 Chest pain, unspecified; I10 Essential (primary) hypertension; F17.200 Nicotine dependence, unspecified, uncomplicated; Z98.890 Other specified postprocedural states; Z87.892 Personal history of anaphylaxis; Z88.8 Allergy status to other drugs, medicaments and biological substances; Z88.0 Allergy status to penicillin; Z91.040 Latex allergy status; Z91.013 Allergy to seafood
CPT/HCPCS: 99284

== ENCOUNTER 2017-04-30 17:34 | Emergency (ER) | payer MEDICAID ==
--- NOTE | 2017-04-30 18:02 | ER Document Report ---
ED Medical Screen (RME) - General Chief Complaint: Headache Stated Complaint: SLURRED SPEECH Time Seen by Provider: 04/30/17 17:56 Mode of Arrival: Ambulatory Information source: Patient Notes: 26-year-old female history of seizure disorder presents with complaints of seizure-like activity headache slurred speech I have greeted and performed a rapid initial assessment of this patient. A comprehensive ED assessment and evaluation of the patient, analysis of test results and completion of the medical decision making process will be conducted by additional ED providers. PHYSICAL EXAMINATION: GENERAL: Well-appearing, well-nourished and in no acute distress. HEAD: Atraumatic, normocephalic. EYES: Pupils equal round extraocular movements intact, conjunctiva are normal. ENT: Nares patent NECK: Normal range of motion LUNGS: No respiratory distress Musculoskeletal: Normal range of motion NEUROLOGICAL: Normal speech, normal gait. PSYCH: Normal mood, normal affect. SKIN: Warm, Dry, normal turgor, no rashes or lesions noted. TRAVEL OUTSIDE OF THE [place].S. IN LAST 30 DAYS: No - Related Data Allergies/Adverse Reactions: alprazolam [From Xanax] Allergy (Severe, Verified 03/23/17 00:09) CHEMICAL REACTION RESULTING IN SEIZURE amoxicillin [Amoxicillin] Allergy (Severe, Verified 03/23/17 00:09) Difficulty breathing Amphetamine Aspartate * [From Adderall] Allergy (Severe, Verified 03/23/17 00:09 ) Anaphylaxis amphetamine sulfate [From Adderall] Allergy (Severe, Verified 03/23/17 00:09) Anaphylaxis bupropion HCl [From Wellbutrin] Allergy (Severe, Verified 03/23/17 00:09) Anaphylaxis cephalexin [Cephalexin] Allergy (Severe, Verified 03/23/17 00:09) Anaphylaxis dextroamphetamine [From Adderall] Allergy (Severe, Verified 03/23/17 00:09) Anaphylaxis latex [Latex] Allergy (Severe, Verified 03/23/17 00:09) Anaphylaxis naproxen [Naproxen] Allergy (Severe, Verified 03/23/17 00:09) Anaphylaxis quetiapine fumarate [From Seroquel] Allergy (Severe, Verified 03/23/17 00:09) Anaphylaxis sertraline HCl [From Zoloft] Allergy (Severe, Verified 03/23/17 00:09) Anaphylaxis shellfish derived [Shellfish Derived] Allergy (Severe, Verified 03/23/17 00:09) Anaphylaxis tramadol [Tramadol] Allergy (Severe, Verified 03/23/17 00:09) Anaphylaxis ziprasidone HCl [From Geodon] Allergy (Severe, Verified 03/23/17 00:09) Anaphylaxis ziprasidone mesylate [From Geodon] Allergy (Severe, Verified 03/23/17 00:09) Anaphylaxis aluminum hydroxide [From Maalox] Allergy (Verified 03/23/17 00:09) Anaphylaxis calcium carbonate [From Maalox] Allergy (Verified 03/23/17 00:09) Anaphylaxis ibuprofen [From Motrin] Allergy (Verified 04/30/17 17:47) ketorolac [From Toradol] Allergy (Verified 04/30/17 17:47) Magnesium Hydroxide [From Maalox] Allergy (Verified 03/23/17 00:09) Anaphylaxis simethicone [From Maalox] Allergy (Verified 03/23/17 00:09) Anaphylaxis seafood Allergy (Uncoded 03/05/17 06:20) Past Medical History - Social History Frequency of alcohol use: None Drug Abuse: None - Past Medical History Cardiac Medical History: Reports: Hx Hypertension Pulmonary Medical History: Reports: Hx Asthma, Hx Bronchitis, Hx Pneumonia Neurological Medical History: Reports: Hx Seizures - Pseudoseizures Renal/ Medical History: Denies: Hx Peritoneal Dialysis GI Medical History: Reports: Hx Gastroesophageal Reflux Disease Musculoskeltal Medical History: Reports Hx Arthritis Psychiatric Medical History: Reports: Hx Anxiety, Hx Attention Deficit Hyperactivity Disorder, Hx Bipolar Disorder, Hx Depression, Hx Post Traumatic Stress Disorder Past Surgical History: Reports: Hx Appendectomy, Hx Section, Hx Tonsillectomy, Hx Tubal Ligation - Immunizations Immunizations up to date: No Hx Diphtheria, Pertussis, Tetanus Vaccination: Yes - [id number] Physical Exam - Vital signs Vitals: Temp Pulse Resp BP Pulse Ox 98.8 F 79 18 126/69 H 98 04/30/17 17:47 04/30/17 17:47 04/30/17 17:47 04/30/17 17:47 04/30/17 17:47 Course - Vital Signs Vital signs: Temp Pulse Resp BP Pulse Ox 98.8 F 79 18 126/69 H 98 04/30/17 17:47 04/30/17 17:47 04/30/17 17:47 04/30/17 17:47 04/30/17 17:47
[2017-04-30 18:38] LABS: ABSOLUTE EOSINOPHILS # (AUTO) 0.1 10^3/uL (0.0-0.6); ABSOLUTE LYMPHOCYTES (AUTO) 1.6 10^3/uL (0.5-4.7); ABSOLUTE MONOCYTES (AUTO) 0.6 10^3/uL (0.1-1.4); ABSOLUTE NEUT (AUTO) 3.5 10^3/uL (1.7-8.2); BASOPHILS % (AUTO) 0.3 % (0-2); HEMATOCRIT 38.7 % (36.0-47.0); HEMOGLOBIN 13.6 g/dL (12.0-15.5); HGB HCT DIFFERENCE 2.1; LYMPHOCYTES % (AUTO) 27.4 % (13-45); MEAN CORPUSCULAR HEMOGLOBIN 32.6 pg (27.0-33.4); MEAN CORPUSCULAR HGB CONC 35.2 g/dL (32.0-36.0); MEAN CORPUSCULAR VOLUME 93 fl (80-97); MONOCYTES % (AUTO) 9.9 % (3-13); RED BLOOD COUNT 4.18 10^6/uL (3.72-5.28); RED CELL DISTRIBUTION WIDTH 12.9 % (11.5-14.0); SEGMENTED NEUTROPHILS % (AUTO) 60.4 % (42-78); WHITE BLOOD COUNT 5.8 10^3/uL (4.0-10.5)
[2017-04-30] MEDS ORDERED: ACETAMINOPHEN 325 MG TABLET PO ONE (18:57)
--- NOTE | 2017-04-30 18:57 | ER Document Report ---
ED General - General Chief Complaint: Headache Stated Complaint: SLURRED SPEECH Time Seen by Provider: 04/30/17 17:56 Mode of Arrival: Ambulatory Information source: Patient Notes: This is a 26 year old female with a history of Szs, Pseudoszs, BPAD who presents to the emergency room after seizure. Patient states that she gets approximately one seizure a month. She took a nap today and woke up at 315 and noticed slurred speech and headache. She says this is consistent with her seizures in the past. She states she did have chills. She denies cough or fever. Patient denies dysuria. She states she has had some left pelvic discomfort and has had an ovarian cyst in the past. Patient denies any vaginal discharge. TRAVEL OUTSIDE OF THE [place] IN LAST 30 DAYS: No - HPI Onset: Just prior to arrival Onset/Duration: Gradual Quality of pain: No pain Severity: None Pain Level: Denies Associated symptoms: Chills. denies: Fever Exacerbated by: Denies Relieved by: Denies Similar symptoms previously: Yes Recently seen / treated by doctor: No - Related Data Allergies/Adverse Reactions: alprazolam [From Xanax] Allergy (Severe, Verified 03/23/17 00:09) CHEMICAL REACTION RESULTING IN SEIZURE amoxicillin [Amoxicillin] Allergy (Severe, Verified 03/23/17 00:09) Difficulty breathing Amphetamine Aspartate * [From Adderall] Allergy (Severe, Verified 03/23/17 00:09 ) Anaphylaxis amphetamine sulfate [From Adderall] Allergy (Severe, Verified 03/23/17 00:09) Anaphylaxis bupropion HCl [From Wellbutrin] Allergy (Severe, Verified 03/23/17 00:09) Anaphylaxis cephalexin [Cephalexin] Allergy (Severe, Verified 03/23/17 00:09) Anaphylaxis dextroamphetamine [From Adderall] Allergy (Severe, Verified 03/23/17 00:09) Anaphylaxis latex [Latex] Allergy (Severe, Verified 03/23/17 00:09) Anaphylaxis naproxen [Naproxen] Allergy (Severe, Verified 03/23/17 00:09) Anaphylaxis quetiapine fumarate [From Seroquel] Allergy (Severe, Verified 03/23/17 00:09) Anaphylaxis sertraline HCl [From Zoloft] Allergy (Severe, Verified 03/23/17 00:09) Anaphylaxis shellfish derived [Shellfish Derived] Allergy (Severe, Verified 03/23/17 00:09) Anaphylaxis tramadol [Tramadol] Allergy (Severe, Verified 03/23/17 00:09) Anaphylaxis ziprasidone HCl [From Geodon] Allergy (Severe, Verified 03/23/17 00:09) Anaphylaxis ziprasidone mesylate [From Geodon] Allergy (Severe, Verified 03/23/17 00:09) Anaphylaxis aluminum hydroxide [From Maalox] Allergy (Verified 03/23/17 00:09) Anaphylaxis calcium carbonate [From Maalox] Allergy (Verified 03/23/17 00:09) Anaphylaxis ibuprofen [From Motrin] Allergy (Verified 04/30/17 17:47) ketorolac [From Toradol] Allergy (Verified 04/30/17 17:47) Magnesium Hydroxide [From Maalox] Allergy (Verified 03/23/17 00:09) Anaphylaxis simethicone [From Maalox] Allergy (Verified 03/23/17 00:09) Anaphylaxis seafood Allergy (Uncoded 03/05/17 06:20) Past Medical History - General Information source: Patient - Social History Smoking Status: Former Smoker Cigarette use (# per day): No Chew tobacco use (# tins/day): No Frequency of alcohol use: None Drug Abuse: None Lives with: Family Family History: Reviewed & Not Pertinent, Malignancy Patient has suicidal ideation: No Patient has homicidal ideation: No - Past Medical History Cardiac Medical History: Reports: Hx Hypertension Pulmonary Medical History: Reports: Hx Asthma, Hx Bronchitis, Hx Pneumonia Neurological Medical History: Reports: Hx Seizures - Pseudoseizures Renal/ Medical History: Denies: Hx Peritoneal Dialysis GI Medical History: Reports: Hx Gastroesophageal Reflux Disease Musculoskeltal Medical History: Reports Hx Arthritis Psychiatric Medical History: Reports: Hx Anxiety, Hx Attention Deficit Hyperactivity Disorder, Hx Bipolar Disorder, Hx Depression, Hx Post Traumatic Stress Disorder Past Surgical History: Reports: Hx Appendectomy, Hx Section, Hx Tonsillectomy, Hx Tubal Ligation - Immunizations Immunizations up to date: No Hx Diphtheria, Pertussis, Tetanus Vaccination: Yes - [id number] Hx Pneumococcal Vaccination: 08/13/13 Review of Systems - Review of Systems Constitutional: Chills. denies: Fever EENT: Dental problem Cardiovascular: No symptoms reported Respiratory: No symptoms reported Gastrointestinal: No symptoms reported Genitourinary: No symptoms reported Female Genitourinary: See HPI Musculoskeletal: No symptoms reported Skin: No symptoms reported Hematologic/Lymphatic: No symptoms reported Neurological/Psychological: See HPI Physical Exam - Vital signs Vitals: Temp Pulse Resp BP Pulse Ox 98.8 F 79 18 126/69 H 98 04/30/17 17:47 04/30/17 17:47 04/30/17 17:47 04/30/17 17:47 04/30/17 17:47 Notes: Physical exam: GENERAL: 26-year-old female, alert and oriented 3, no acute distress HEAD: Atraumatic, normocephalic. EYES: Pupils equal round and reactive to light, extraocular movements intact, sclera anicteric, conjunctiva are normal. ENT: TMs normal, nares patent, patient does have dental caries of the upper teeth. Oropharynx clear without exudates. Moist mucous membranes. NECK: Normal range of motion, supple without obvious mass or JVD. LUNGS: Breath sounds clear to auscultation bilaterally and equal. No wheezes rales or rhonchi. HEART: Regular rate and rhythm without murmurs, rubs or gallops. ABDOMEN: Soft, normoactive bowel sounds. No tenderness to palpation. No guarding, no rebound. No masses appreciated. EXTREMITIES: Normal range of motion, no pitting or edema. No clubbing or cyanosis. NEUROLOGICAL: Cranial nerves II through XII grossly intact. There is no facial droop. Her motor exam to the upper extremities is 5/5, sensory is grossly intact, cerebellar is intact. Slurred speech, moving all extremities. PSYCH: Normal mood, normal affect. SKIN: Warm, Dry, normal turgor, no rashes or lesions noted. Course - Re-evaluation Re-evalutation: 04/30/17 22:41 Note: The patient has remained stable in the ER. Every time I walk in the room , she is on her phone and in no distress. The slurred speech has resolved spontaneously which is consistent with past episodes of seizure. She was subtherapeutic on both her Dilantin and lithium. She was given a boost of her Dilantin in the emergency room. The urine had a few white cells but she has no symptoms of UTI. I have sent a urine culture. She does complain of dental pain and has significant dental caries so I am putting her on clindamycin. She is also complained of having a left ovarian cyst and was having left pelvic pain and an ultrasound shows a left ovarian cyst. She does have good follow-up with Dr. Elkins at the [facility] and she will follow-up with him. I have given her a copy of today's labs so that she can go back to her neurologist for adjusting the Dilantin. She does state she will be following up with a dentist as far as the dental caries. - Vital Signs Vital signs: Temp Pulse Resp BP Pulse Ox 98 F 69 16 109/68 98 04/30/17 22:48 04/30/17 22:48 04/30/17 22:48 04/30/17 22:48 04/30/17 22:48 - Laboratory Result Diagrams: 04/30/17 18:14 04/30/17 18:14 Laboratory results interpreted by me: 04/30/17 04/30/17 04/30/17 18:14 18:14 20:42 Chloride 111 H Ur Leukocyte Esterase SMALL H Phenytoin < 3.0 L [place] 0.4 L - Diagnostic Test Radiology reviewed: Image reviewed, Reports reviewed - Transvaginal ultrasound shows a left ovarian cyst. Good flow blood flow to the left ovarie which was the symptomatic side. They were unable to see the right (asymptomatic side). Discharge - Discharge Clinical Impression: Seizure, Left ovarian cyst, Dental caries Condition: Stable Disposition: HOME, SELF-CARE Instructions: Dental Infection or Abscess ([facility]), Ovarian Cyst ([facility]), Seizure, Known Epileptic ([facility]) Additional Instructions: Thank you for choosing [facility] for your care. The examination and treatment you have received in the Emergency Department today has been rendered on an emergency basis only and is not intended to be a substitute for complete medical care. You should contact your follow-up physician as it is important that he or she examine you for any new or remaining problems. If given a copy of any lab tests or radiology reports, please bring them with you when you see your physician. If your problem worsens or new symptoms appear and you are unable to arrange prompt follow-up care, return to the Emergency Department. Specific signs to look out for: Worsening seizures, worsening abdominal pain. Any other instructions: Take the antibiotics as prescribed. Take the pain medicine as needed. Continue current medicines. Follow-up with the management professionals (Dr. Elkins) as prescribed. Follow-up with the neurologist (Dr. valentino) and bring a copy of today's labs with you when you go. The pain medicine you're taking prescribed as a narcotic. There are several important things you should know about this medicine: 1. This medicine contains Tylenol: It is important that you do not take Tylenol (or acetaminophen) while on this medicine. Tylenol is metabolized by the liver and taking too much Tylenol (acetaminophen) can lay to liver damage and even liver failure. 2. Taking narcotics for too long can lead to physical and mental dependence. Take this medicine only if really needed and in the lowest quantity to achieve pain relief. 3. Do not drink alcohol while on this medicine. Alcohol interacts with narcotics and the combination can be dangerous. 4. Do not drive or operate machinery while on this medicine. 5. Narcotics do cause constipation, so drink plenty of fluids and daily stool softeners. Prescriptions: Clindamycin HCl [Cleocin 300 mg Capsule] 300 mg PO Q6 #28 capsule Forms: Return to School
[2017-04-30 19:05] LABS: ALANINE AMINOTRANSFERASE 24 U/L (9-52); ALBUMIN 4.5 g/dL (3.5-5.0); ALKALINE PHOSPHATASE 56 U/L (38-126); ANION GAP 9 (5-19); ASPARTATE AMINO TRANSFERASE 16 U/L (14-36); BILIRUBIN,DIRECT 0.3 mg/dL (0.0-0.4); BILIRUBIN,TOTAL 0.3 mg/dL (0.2-1.3); BLOOD UREA NITROGEN 10 mg/dL (7-20); CALCIUM 9.8 mg/dL (8.4-10.2); CARBON DIOXIDE 23 mmol/L (22-30); CHLORIDE 111 mmol/L (98-107); GLUCOSE 99 mg/dL (75-110); LITHIUM 0.4 mEq/L (0.6-1.2); POTASSIUM 4.7 mmol/L (3.6-5.0); SODIUM 142.6 mmol/L (137-145)
[2017-04-30] MEDS ORDERED: PHENYTOIN SODIUM EXTENDED 100 MG CAPSULE PO ONE (19:27)
--- NOTE | 2017-04-30 20:03 | RADIOLOGY REPORT (SQ) ---
EXAM DESCRIPTION: CHEST PA/LAT COMPLETED DATE/TIME: 04/30/2017 7:00 pm REASON FOR STUDY: seizure COMPARISON: July 2015 EXAM PARAMETERS: NUMBER OF VIEWS: two views TECHNIQUE: Digital Frontal and Lateral radiographic views of the chest acquired. RADIATION DOSE: NA LIMITATIONS: none FINDINGS: LUNGS AND PLEURA: No opacities, masses or pneumothorax. No pleural effusion. MEDIASTINUM AND HILAR STRUCTURES: No masses or contour abnormalities. HEART AND VASCULAR STRUCTURES: Heart normal size. No evidence for failure. BONES: No acute findings. HARDWARE: None in the chest. OTHER: No other significant finding. IMPRESSION: NO SIGNIFICANT RADIOGRAPHIC FINDING IN THE CHEST. TECHNICAL DOCUMENTATION: JOB ID: [id number] [email or web address]- All Rights Reserved
[2017-04-30] MEDS ORDERED: ONDANSETRON HCL 8 MG TABLET PO ONE (20:44)
[2017-04-30 21:17] LABS: APPEARANCE,URINE SLIGHTLY-CLOUDY; BILIRUBIN,URINE NEGATIVE (NEGATIVE); GLUCOSE, URINE NEGATIVE (NEGATIVE); KETONES,URINE NEGATIVE (NEGATIVE); LEUKOCYTE ESTERASE,URINE SMALL (NEGATIVE); NITRITE,URINE NEGATIVE (NEGATIVE); PROTEIN,URINE NEGATIVE (NEGATIVE); URINE SPECIFIC GRAVITY 1.018; UROBILINOGEN,URINE NEGATIVE mg/dL (<2.0)
--- NOTE | 2017-04-30 22:08 | RADIOLOGY REPORT (SQ) ---
EXAM DESCRIPTION: U/S NON OB PEL TV W/DOPPLER COMPLETED DATE/TIME: 04/30/2017 9:51 pm REASON FOR STUDY: left adnexal pain COMPARISON: None. TECHNIQUE: Dynamic and static grayscale images acquired of the pelvis via transvaginal approach and recorded on PACS. Additional selected color Doppler and spectral images recorded. LIMITATIONS: None. FINDINGS: UTERUS: Contour normal. No mass. ENDOMETRIAL STRIPE: No focal or generalized thickening. No masses. CERVIX: No nabothian cysts. RIGHT OVARY: Right ovary was not visualized. LEFT OVARY: A hypoechoic area is identified measuring 3.7 x 3.2 x 4.1 cm in diameters most consistent with an ovarian cyst. LEFT OVARY DOPPLER: Normal arterial vascular flow without evidence for torsion. FREE FLUID: Free fluid is identified in the posterior cul-de-sac. OTHER: No other significant finding. MEASUREMENTS: UTERUS: 10.6 x 6.6 x 5.9 cm ENDOMETRIAL STRIPE: 7 mm RIGHT OVARY: Not visualized. LEFT OVARY: 5.0 x 4.0 x 4.7 cm IMPRESSION: Hypoechoic area in the left ovary most consistent with an ovarian cyst. Other findings as noted above TECHNICAL DOCUMENTATION: JOB ID: [id number] [employer]- All Rights Reserved
[2017-04-30] MEDS ORDERED: HYDROCODONE/ACETAMINOPHEN 5-325 MG 6 TAB/DSPK PO PRN (22:38)
[2017-04-30 22:49] VITALS: BP 109/68
== END 2017-04-30 22:50 | disposition home or self-care (01) ==
LOC: ER 17:34
DX: R56.9 Unspecified convulsions (principal); N83.202 Unspecified ovarian cyst, left side; K02.9 Dental caries, unspecified; R68.83 Chills (without fever); R47.81 Slurred speech; I10 Essential (primary) hypertension; J45.909 Unspecified asthma, uncomplicated; Z88.0 Allergy status to penicillin; Z88.6 Allergy status to analgesic agent; Z87.892 Personal history of anaphylaxis; Z91.040 Latex allergy status; Z91.013 Allergy to seafood; Z88.1 Allergy status to other antibiotic agents; Z88.5 Allergy status to narcotic agent; Z88.8 Allergy status to other drugs, medicaments and biological substances; Z87.891 Personal history of nicotine dependence; Z79.899 Other long term (current) drug therapy
CPT/HCPCS: 99285; 36415; 87086; 80178; 80185; 85025; 80053; 81001; 71020; 76830; 93976; J3490 ×2; S0119

== ENCOUNTER 2017-05-10 12:16 | Emergency (ER) | payer MEDICAID ==
[2017-05-10 12:21] VITALS: BP 117/75
--- NOTE | 2017-05-10 13:04 | ER Document Report ---
ED Skin Rash/Insect Bite/Abscs - General Chief Complaint: Skin Problem Stated Complaint: POSSIBLE CYST Time Seen by Provider: 05/10/17 12:26 Mode of Arrival: Ambulatory Information source: Patient Notes: Patient is a 26-year-old female who presents to the ER today for lump to the anterior left lower leg times many months. Patient states that she thinks it is warm to the touch, but denies any redness, fever, chills, history of blood clots, recent travel, chest pain or shortness of breath. TRAVEL OUTSIDE OF THE [place] IN LAST 30 DAYS: No - Related Data Allergies/Adverse Reactions: alprazolam [From Xanax] Allergy (Severe, Verified 05/10/17 12:20) CHEMICAL REACTION RESULTING IN SEIZURE amoxicillin [Amoxicillin] Allergy (Severe, Verified 05/10/17 12:20) Difficulty breathing Amphetamine Aspartate * [From Adderall] Allergy (Severe, Verified 05/10/17 12:20 ) Anaphylaxis amphetamine sulfate [From Adderall] Allergy (Severe, Verified 05/10/17 12:20) Anaphylaxis bupropion HCl [From Wellbutrin] Allergy (Severe, Verified 05/10/17 12:20) Anaphylaxis cephalexin [Cephalexin] Allergy (Severe, Verified 05/10/17 12:20) Anaphylaxis dextroamphetamine [From Adderall] Allergy (Severe, Verified 05/10/17 12:20) Anaphylaxis latex [Latex] Allergy (Severe, Verified 05/10/17 12:20) Anaphylaxis naproxen [Naproxen] Allergy (Severe, Verified 05/10/17 12:20) Anaphylaxis quetiapine fumarate [From Seroquel] Allergy (Severe, Verified 05/10/17 12:20) Anaphylaxis sertraline HCl [From Zoloft] Allergy (Severe, Verified 05/10/17 12:20) Anaphylaxis shellfish derived [Shellfish Derived] Allergy (Severe, Verified 05/10/17 12:20) Anaphylaxis tramadol [Tramadol] Allergy (Severe, Verified 05/10/17 12:20) Anaphylaxis ziprasidone HCl [From Geodon] Allergy (Severe, Verified 05/10/17 12:20) Anaphylaxis ziprasidone mesylate [From Geodon] Allergy (Severe, Verified 05/10/17 12:20) Anaphylaxis aluminum hydroxide [From Maalox] Allergy (Verified 05/10/17 12:20) Anaphylaxis calcium carbonate [From Maalox] Allergy (Verified 05/10/17 12:20) Anaphylaxis ibuprofen [From Motrin] Allergy (Verified 05/10/17 12:20) ketorolac [From Toradol] Allergy (Verified 05/10/17 12:20) Magnesium Hydroxide [From Maalox] Allergy (Verified 05/10/17 12:20) Anaphylaxis simethicone [From Maalox] Allergy (Verified 05/10/17 12:20) Anaphylaxis seafood Allergy (Uncoded 05/10/17 12:20) Past Medical History - General Information source: Patient - Social History Smoking Status: Unknown if Ever Smoked Family History: Reviewed & Not Pertinent, Malignancy - Past Medical History Cardiac Medical History: Reports: Hx Hypertension Pulmonary Medical History: Reports: Hx Asthma, Hx Bronchitis, Hx Pneumonia Neurological Medical History: Reports: Hx Seizures - Pseudoseizures Renal/ Medical History: Denies: Hx Peritoneal Dialysis GI Medical History: Reports: Hx Gastroesophageal Reflux Disease Musculoskeltal Medical History: Reports Hx Arthritis Psychiatric Medical History: Reports: Hx Anxiety, Hx Attention Deficit Hyperactivity Disorder, Hx Bipolar Disorder, Hx Depression, Hx Post Traumatic Stress Disorder Past Surgical History: Reports: Hx Appendectomy, Hx Section, Hx Tonsillectomy, Hx Tubal Ligation - Immunizations Immunizations up to date: No Hx Diphtheria, Pertussis, Tetanus Vaccination: Yes - [id number] Hx Pneumococcal Vaccination: 08/13/13 Review of Systems - Review of Systems Constitutional: No symptoms reported EENT: No symptoms reported Cardiovascular: No symptoms reported Respiratory: No symptoms reported Gastrointestinal: No symptoms reported Genitourinary: No symptoms reported Female Genitourinary: No symptoms reported Musculoskeletal: No symptoms reported Skin: See HPI Hematologic/Lymphatic: No symptoms reported Neurological/Psychological: No symptoms reported Physical Exam - Vital signs Vitals: Temp Pulse Resp BP Pulse Ox 98.7 F 83 18 117/75 99 05/10/17 12:20 05/10/17 12:20 05/10/17 12:20 05/10/17 12:20 05/10/17 12:20 - Notes Notes: PHYSICAL EXAMINATION: GENERAL: Well-appearing and in no acute distress. HEAD: Atraumatic, normocephalic. EYES: Pupils equal round and reactive to light, extraocular movements intact, sclera anicteric, conjunctiva are normal. NECK: Normal range of motion, supple without lymphadenopathy LUNGS: CTAB and equal. No wheezes rales or rhonchi. HEART: Regular rate and rhythm without murmurs EXTREMITIES: no calf pain, Normal range of motion, no pitting edema. No cyanosis. NEUROLOGICAL: Cranial nerves grossly intact. Normal sensory/motor exams. PSYCH: Normal mood, normal affect. SKIN: Warm, Dry, normal turgor, nontender mass, not indurated or fluctuant to left anterior parish, no erythema or warmth, c/w lipoma Course - Vital Signs Vital signs: Temp Pulse Resp BP Pulse Ox 98.7 F 83 18 117/75 99 05/10/17 12:20 05/10/17 12:20 05/10/17 12:20 05/10/17 12:20 05/10/17 12:20 Discharge - Discharge Clinical Impression: Lipoma Qualifiers: Lipoma location: lower extremity Laterality: left Qualified Code(s): D17.24 - Benign lipomatous neoplasm of skin and subcutaneous tissue of left leg Condition: Stable Disposition: HOME, SELF-CARE Additional Instructions: Return immediately for any new or worsening symptoms. Follow up with primary care provider, call tomorrow to make followup appointment. Referrals: YESY LEACH DO [ACTIVE STAFF] - Follow up as needed
== END 2017-05-10 13:15 | disposition home or self-care (01) ==
LOC: ER 12:16
DX: D17.24 Benign lipomatous neoplasm of skin and subcutaneous tissue of left leg (principal); L98.9 Disorder of the skin and subcutaneous tissue, unspecified
CPT/HCPCS: 99283

== ENCOUNTER 2017-05-11 10:17 | Emergency (ER) | payer MEDICAID ==
--- NOTE | 2017-05-11 11:22 | ER Document Report ---
ED Hand/Wrist Injury - General Chief Complaint: Thumb Injury Stated Complaint: THUMB INJURY Time Seen by Provider: 05/11/17 11:09 Mode of Arrival: Ambulatory Information source: Patient Notes: 26-year-old female presents to ED for complaint of pain to her right palm and thumb. She states she was sweeping the floor when she fell landing on her hand falling over top of the cat. She states she cannot bend or move her thumb due to the pain. There is bruising to the thumb. TRAVEL OUTSIDE OF THE [place] IN LAST 30 DAYS: No - HPI Injury to: Hand, Thumb Onset: Just prior to arrival Where: Home Timing: Still present Quality of pain: No pain Severity: Moderate Pain Level: 4 Context: Fall - Related Data Allergies/Adverse Reactions: alprazolam [From Xanax] Allergy (Severe, Verified 05/10/17 12:20) CHEMICAL REACTION RESULTING IN SEIZURE amoxicillin [Amoxicillin] Allergy (Severe, Verified 05/10/17 12:20) Difficulty breathing Amphetamine Aspartate * [From Adderall] Allergy (Severe, Verified 05/10/17 12:20 ) Anaphylaxis amphetamine sulfate [From Adderall] Allergy (Severe, Verified 05/10/17 12:20) Anaphylaxis bupropion HCl [From Wellbutrin] Allergy (Severe, Verified 05/10/17 12:20) Anaphylaxis cephalexin [Cephalexin] Allergy (Severe, Verified 05/10/17 12:20) Anaphylaxis dextroamphetamine [From Adderall] Allergy (Severe, Verified 05/10/17 12:20) Anaphylaxis latex [Latex] Allergy (Severe, Verified 05/10/17 12:20) Anaphylaxis naproxen [Naproxen] Allergy (Severe, Verified 05/10/17 12:20) Anaphylaxis quetiapine fumarate [From Seroquel] Allergy (Severe, Verified 05/10/17 12:20) Anaphylaxis sertraline HCl [From Zoloft] Allergy (Severe, Verified 05/10/17 12:20) Anaphylaxis shellfish derived [Shellfish Derived] Allergy (Severe, Verified 05/10/17 12:20) Anaphylaxis tramadol [Tramadol] Allergy (Severe, Verified 05/10/17 12:20) Anaphylaxis ziprasidone HCl [From Geodon] Allergy (Severe, Verified 05/10/17 12:20) Anaphylaxis ziprasidone mesylate [From Geodon] Allergy (Severe, Verified 05/10/17 12:20) Anaphylaxis aluminum hydroxide [From Maalox] Allergy (Verified 05/10/17 12:20) Anaphylaxis calcium carbonate [From Maalox] Allergy (Verified 05/10/17 12:20) Anaphylaxis diphenhydramine [From Benadryl Allergy] Allergy (Verified 05/11/17 10:34) ibuprofen [From Motrin] Allergy (Verified 05/10/17 12:20) ketorolac [From Toradol] Allergy (Verified 05/10/17 12:20) Magnesium Hydroxide [From Maalox] Allergy (Verified 05/10/17 12:20) Anaphylaxis simethicone [From Maalox] Allergy (Verified 05/10/17 12:20) Anaphylaxis seafood Allergy (Uncoded 05/10/17 12:20) Past Medical History - General Information source: Patient - Social History Smoking Status: Former Smoker Cigarette use (# per day): No Chew tobacco use (# tins/day): No Smoking Education Provided: No Frequency of alcohol use: Occasional Drug Abuse: None Occupation: disabled Lives with: Family Family History: Malignancy Patient has suicidal ideation: No Patient has homicidal ideation: No - Past Medical History Cardiac Medical History: Reports: Hx Hypertension Pulmonary Medical History: Reports: Hx Asthma, Hx Bronchitis, Hx Pneumonia Neurological Medical History: Reports: Hx Seizures Endocrine Medical History: Reports: None Renal/ Medical History: Reports: None Malignancy Medical History: Reports: None GI Medical History: Reports: Hx Gastroesophageal Reflux Disease Musculoskeltal Medical History: Reports Hx Arthritis, Reports Hx Musculoskeletal Deformity, Reports Hx Musculoskeletal Trauma Psychiatric Medical History: Reports: Hx Anxiety, Hx Attention Deficit Hyperactivity Disorder, Hx Bipolar Disorder, Hx Borderline Personality Disorder , Hx Depression, Hx Post Traumatic Stress Disorder Traumatic Medical History: Reports: None Infectious Medical History: Reports: None Past Surgical History: Reports: Hx Appendectomy, Hx Section, Hx Tonsillectomy, Hx Tubal Ligation - Immunizations Immunizations up to date: No Hx Diphtheria, Pertussis, Tetanus Vaccination: Yes - [id number] Hx Pneumococcal Vaccination: 08/13/13 Review of Systems - Review of Systems Constitutional: No symptoms reported EENT: No symptoms reported Cardiovascular: No symptoms reported Respiratory: No symptoms reported Gastrointestinal: No symptoms reported Genitourinary: No symptoms reported Female Genitourinary: No symptoms reported Musculoskeletal: Joint pain - Right thumb and right palm tender bruised painful Skin: Other - Right thumb and right palm tender bruised painful Hematologic/Lymphatic: No symptoms reported Neurological/Psychological: No symptoms reported Physical Exam - Vital signs Vitals: Temp Pulse Resp BP Pulse Ox 97.5 F 70 20 106/79 97 05/11/17 10:35 05/11/17 10:35 05/11/17 10:35 05/11/17 10:35 05/11/17 10:35 Interpretation: Normal - General General appearance: Appears well, Alert - HEENT Head: Normocephalic, Atraumatic Eyes: Normal Pupils: PERRL - Respiratory Respiratory status: No respiratory distress Chest status: Nontender Breath sounds: Normal Chest palpation: Normal - Cardiovascular Rhythm: Regular Heart sounds: Normal auscultation Murmur: No - Abdominal Inspection: Normal Distension: No distension Bowel sounds: Normal Tenderness: Nontender Organomegaly: No organomegaly - Back Back: Normal, Nontender - Extremities General upper extremity: Normal inspection, Nontender, Normal color, Normal ROM , Normal temperature General lower extremity: Normal inspection, Nontender, Normal color, Normal ROM , Normal temperature, Normal weight bearing. No: Guille's sign Hand: Tender, Ecchymosis, No evidence of human bite, No evidence of FB, Swelling. No: Abrasion, Deformity, Dislocation, Instability, Laceration, Nail injury, Tendon deficit - Neurological Neuro grossly intact: Yes Cognition: Normal Orientation: AAOx4 Jessa Coma Scale Eye Opening: Spontaneous Jessa Coma Scale Verbal: Oriented [place]bbering Coma Scale Motor: Obeys Commands Jessa Coma Scale Total: 15 Speech: Normal Motor strength normal: LUE, RUE, LLE, RLE Sensory: Normal - Psychological Associated symptoms: Normal affect, Normal mood - Skin Skin Temperature: Warm Skin Moisture: Dry Skin Color: Normal Course - Re-evaluation Re-evalutation: 05/11/17 22:01 Chest x-ray with patient before discharge patient was discharged home to follow- up with primary doctor. - Vital Signs Vital signs: Temp Pulse Resp BP Pulse Ox 97.8 F 65 18 105/75 100 05/11/17 12:46 05/11/17 12:46 05/11/17 12:46 05/11/17 12:46 05/11/17 12:46 - Diagnostic Test Radiology reviewed: Image reviewed, Reports reviewed Discharge - Discharge Clinical Impression: Contusion of right thumb without damage to nail Qualifiers: Encounter type: initial encounter Qualified Code(s): S60.011A - Contusion of right thumb without damage to nail, initial encounter Contusion of right hand Qualifiers: Encounter type: initial encounter Qualified Code(s): S60.221A - Contusion of right hand, initial encounter Condition: Stable Disposition: HOME, SELF-CARE Instructions: Family Physicians / Practices Additional Instructions: CONTUSION: Your injury has resulted in a contusion -- a crushing of the deep tissues. No injury to important structures was detected during the physician's exam. Contusions vary in the amount of pain they cause, and in the length of time required for healing. Typically, the area will become bruised, and will remain painful to touch for two or three weeks. However, most patients are back to working and playing within a few days. After the initial period of rest and cold-packs, your symptoms (together with the doctor's recommendations) will determine how rapidly you can get back to full activity. Usually this means "do what feels okay, but don't do things that hurt." If re-examination was recommended, it's important to follow up as instructed. Call the doctor or return any time if pain increases, if swelling becomes severe, if you develop numbness or weakness in an injured extremity, or if any other alarming symptoms occur. USE OF TYLENOL (ACETAMINOPHEN): Acetaminophen may be taken for pain relief or fever control. It's much safer than aspirin, offering a wider range of "safe" dosages. It is safe during . Some brand names are Tylenol, Panadol, Datril, Anacin 3, Tempra, and Liquiprin. Acetaminophen can be repeated every four hours. The following are maximum recommended dosages: WEIGHT Dose Drops Elixir Chewable( 80mg) (LBS.) drprs=droppers tsp=teaspoon 6 40 mg 0.4 ml (1/2) 6-11 80 mg 0.8 ml (full) tsp 1 tab 12-16 120 mg 1 1/2 drprs 3/4 tsp 1 1/2 tabs 17-23 160 mg 2 drprs 1 tsp 2 tabs 24-30 240 mg 3 drprs 1 1/2 tsp 3 tabs 30-35 320 mg 2 tsp 4 tabs 36-41 360 mg 2 1/4 tsp 4 1/2 tabs 42-47 400 mg 2 1/2 tsp 5 tabs 48-53 480 mg 3 tsp 6 tabs 54-59 520 mg 3 1/4 tsp 6 1/2 tabs 60-64 560 mg 3 1/2 tsp 7 tabs 65-70 600 mg 3 3/4 tsp 7 1/2 tabs 71-76 640 mg 4 tsp 8 tabs 77-82 720 mg 4 1/2 tsp 9 tabs 83-88 800 mg 5 tsp 10 tabs >89 pounds or adults 650 mg to 900 mg Acetaminophen can be repeated every four hours. Maximum dose not to exceed 4000 mg a day. These maximum recommended dosages are slightly higher than the dosages written on the product container, but these dosages are very safe and below the toxic dosage for acetaminophen. ICE & ELEVATION: Apply ice packs frequently against the painful area. Many different schedules are recommended, such as "20 minutes on, 20 minutes off" or "one hour ice, two hours rest." If you need to work, you may need to go longer between ice treatments. You should plan to have the area ice packed AT LEAST one- fourth of the time. The ice should be applied over the wrap, tape, or splint, or over a layer of cloth -- not directly against the skin. Some ice bags have a built-in cloth and can be put directly on the skin. Your injured part should be elevated as much as possible over the next 48 hours. Try to keep the injury above the level of the heart. Avoid use of the injured area. Elevation and rest will decrease the swelling. USE OF [id number] IBUPROFEN: Ibuprofen (Advil, Nuprin, Medipren, Motrin IB) is a medication for fever and pain control. In addition, it has anti- inflammatory effects which may be beneficial, especially in the treatment of injuries. It's best to take ibuprofen with food. Persons with ulcer disease or allergy to aspirin should notify their physician of this before taking ibuprofen. Ibuprofen can be given every four to six hours, for a total of four doses daily. Age Pain or fever dose Antiinflammatory dose 6-8 yr 200 mg (1 tab) 200 mg (1 tab) 9-11 yr 200 mg (1 tab) 200-400 mg (1-2 tab) 11-14 yr 200-400 mg (1-2 tab) 400 mg (2 tab) 15-adult 400 mg (2 tab) 600 mg (3 tab) FOLLOW-UP CARE: If you have been referred to a physician for follow-up care, call the physician s office for an appointment as you were instructed or within the next two days. If you experience worsening or a significant change in your symptoms, notify the physician immediately or return to the Emergency Department at any time for re-evaluation.
--- NOTE | 2017-05-11 11:58 | RADIOLOGY REPORT (SQ) ---
EXAM DESCRIPTION: FINGER RIGHT COMPLETED DATE/TIME: 05/11/2017 11:44 am REASON FOR STUDY: injury t right thumb COMPARISON: None. NUMBER OF VIEWS: Three views. TECHNIQUE: AP, lateral, and oblique images acquired of the right thumb. LIMITATIONS: None. FINDINGS: MINERALIZATION: Normal. BONES: No acute fracture or dislocation. No worrisome bone lesions. SOFT TISSUES: No soft tissue swelling. No foreign body. OTHER: No other significant finding. IMPRESSION: NO RADIOGRAPHIC EVIDENCE OF ACUTE INJURY. COMMENT: SITE OF TRAUMA/COMPLAINT MARKED/STAMP COMPLETED: Yes TECHNICAL DOCUMENTATION: JOB ID: [id number] [employer]- All Rights Reserved
--- NOTE | 2017-05-11 11:59 | RADIOLOGY REPORT (SQ) ---
EXAM DESCRIPTION: HAND RIGHT 3 VIEWS COMPLETED DATE/TIME: 05/11/2017 11:44 am REASON FOR STUDY: pain in hand and thumb after falling over cat COMPARISON: 09/02/2015 EXAM PARAMETERS: NUMBER OF VIEWS: Three views. TECHNIQUE: AP, lateral and oblique radiographic images acquired of the right hand. LIMITATIONS: None. FINDINGS: MINERALIZATION: Normal. BONES: No acute fracture or dislocation. No worrisome bone lesions. JOINTS: No effusions. SOFT TISSUES: No soft tissue swelling. No foreign body. OTHER: No other significant finding. IMPRESSION: NEGATIVE STUDY OF THE RIGHT HAND. NO RADIOGRAPHIC EVIDENCE OF ACUTE INJURY. TECHNICAL DOCUMENTATION: JOB ID: [id number] [employer]- All Rights Reserved
[2017-05-11 12:47] VITALS: BP 105/75
== END 2017-05-11 12:47 | disposition home or self-care (01) ==
LOC: ER 10:17
DX: S60.012A Contusion of left thumb without damage to nail, initial encounter (principal); S60.221A Contusion of right hand, initial encounter; W01.0XXA Fall on same level from slipping, tripping and stumbling without subsequent striking against object, initial encounter; Y93.E5 Activity, floor mopping and cleaning; Y92.009 Unspecified place in unspecified non-institutional (private) residence as the place of occurrence of the external cause; I10 Essential (primary) hypertension; J45.909 Unspecified asthma, uncomplicated; Z88.0 Allergy status to penicillin; Z88.6 Allergy status to analgesic agent; Z87.892 Personal history of anaphylaxis; Z88.8 Allergy status to other drugs, medicaments and biological substances; Z88.1 Allergy status to other antibiotic agents; Z91.040 Latex allergy status; Z91.013 Allergy to seafood; Z87.891 Personal history of nicotine dependence
CPT/HCPCS: 99283

== ENCOUNTER 2017-05-16 18:28 | Emergency (ER) | payer MEDICAID ==
[2017-05-16 18:39] VITALS: BP 118/82
[2017-05-16] MEDS ORDERED: CLINDAMYCIN HCL 150 MG CAPSULE PO ONE (19:17)
[2017-05-16] MEDS ORDERED: OXYCODONE-ACETAMINOPHEN 5-325 MG TABLET PO ONE (19:18)
--- NOTE | 2017-05-16 19:21 | ER Document Report ---
ED Oral Problem - General Chief Complaint: Toothache Stated Complaint: TOOTH PAIN Time Seen by Provider: 05/16/17 19:13 Notes: Patient is a 26-year-old female who presents emergency department complaining of gingivitis. She is brushing her teeth this morning and started bleeding. She now admits to soreness of her gums. She was referred here for antibiotics. Patient has a diffuse allergy history and is not able to take penicillin. Otherwise she denies any fever, chills, difficulty breathing, sore throat, chest pain TRAVEL OUTSIDE OF THE [place] IN LAST 30 DAYS: No - Related Data Allergies/Adverse Reactions: alprazolam [From Xanax] Allergy (Severe, Verified 05/16/17 18:38) CHEMICAL REACTION RESULTING IN SEIZURE amoxicillin [Amoxicillin] Allergy (Severe, Verified 05/16/17 18:38) Difficulty breathing Amphetamine Aspartate * [From Adderall] Allergy (Severe, Verified 05/16/17 18:38 ) Anaphylaxis amphetamine sulfate [From Adderall] Allergy (Severe, Verified 05/16/17 18:38) Anaphylaxis bupropion HCl [From Wellbutrin] Allergy (Severe, Verified 05/16/17 18:38) Anaphylaxis cephalexin [Cephalexin] Allergy (Severe, Verified 05/16/17 18:38) Anaphylaxis dextroamphetamine [From Adderall] Allergy (Severe, Verified 05/16/17 18:38) Anaphylaxis latex [Latex] Allergy (Severe, Verified 05/16/17 18:38) Anaphylaxis naproxen [Naproxen] Allergy (Severe, Verified 05/16/17 18:38) Anaphylaxis quetiapine fumarate [From Seroquel] Allergy (Severe, Verified 05/16/17 18:38) Anaphylaxis sertraline HCl [From Zoloft] Allergy (Severe, Verified 05/16/17 18:38) Anaphylaxis shellfish derived [Shellfish Derived] Allergy (Severe, Verified 05/16/17 18:38) Anaphylaxis tramadol [Tramadol] Allergy (Severe, Verified 05/16/17 18:38) Anaphylaxis ziprasidone HCl [From Geodon] Allergy (Severe, Verified 05/16/17 18:38) Anaphylaxis ziprasidone mesylate [From Geodon] Allergy (Severe, Verified 05/16/17 18:38) Anaphylaxis aluminum hydroxide [From Maalox] Allergy (Verified 05/16/17 18:38) Anaphylaxis calcium carbonate [From Maalox] Allergy (Verified 05/16/17 18:38) Anaphylaxis diphenhydramine [From Benadryl Allergy] Allergy (Verified 05/16/17 18:38) ibuprofen [From Motrin] Allergy (Verified 05/16/17 18:38) ketorolac [From Toradol] Allergy (Verified 05/16/17 18:38) Magnesium Hydroxide [From Maalox] Allergy (Verified 05/16/17 18:38) Anaphylaxis simethicone [From Maalox] Allergy (Verified 05/16/17 18:38) Anaphylaxis seafood Allergy (Uncoded 05/16/17 18:38) Past Medical History - Social History Smoking Status: Never Smoker Family History: Malignancy - Past Medical History Cardiac Medical History: Reports: Hx Hypertension Pulmonary Medical History: Reports: Hx Asthma, Hx Bronchitis, Hx Pneumonia Neurological Medical History: Reports: Hx Seizures Renal/ Medical History: Denies: Hx Peritoneal Dialysis GI Medical History: Reports: Hx Gastroesophageal Reflux Disease Musculoskeltal Medical History: Reports Hx Arthritis, Reports Hx Musculoskeletal Deformity, Reports Hx Musculoskeletal Trauma Psychiatric Medical History: Reports: Hx Anxiety, Hx Attention Deficit Hyperactivity Disorder, Hx Bipolar Disorder, Hx Borderline Personality Disorder , Hx Depression, Hx Post Traumatic Stress Disorder Past Surgical History: Reports: Hx Appendectomy, Hx Section, Hx Tonsillectomy, Hx Tubal Ligation - Immunizations Immunizations up to date: No Hx Diphtheria, Pertussis, Tetanus Vaccination: Yes - [id number] Hx Pneumococcal Vaccination: 08/13/13 Review of Systems - Review of Systems Constitutional: No symptoms reported EENT: See HPI -: Yes All other systems reviewed and negative Physical Exam - Vital signs Vitals: Temp Pulse Resp BP Pulse Ox 98.1 F 69 18 118/82 99 05/16/17 18:38 05/16/17 18:38 05/16/17 18:38 05/16/17 18:38 05/16/17 18:38 - HEENT Mouth/Lips: Caries - throughout entrire mouth, Dental fracture, Other - gingivitis Mucous membranes: Normal Pharynx: Normal. No: Peritonsillar abscess, Retropharyngeal abscess, Potential airway comprom. Neck: Normal, Other - no evidence of ludwigs angina - Respiratory Respiratory status: No respiratory distress Chest status: Nontender Breath sounds: Normal Chest palpation: Normal - Cardiovascular Rhythm: Regular Heart sounds: Normal auscultation, S1 appreciated, S2 appreciated Course - Re-evaluation Re-evalutation: 05/16/17 19:20 Presentation is most consistent with likely an infected tooth. Airway is patent. Vitals within normal limits. Patient is able swallow without any difficulty. There is no significant facial swelling. Patient will be started on antibiotics. I've instructed to follow-up with dentistry as earliest ability for definitive management. Return precautions and follow-up recommendations have been discussed at length. - Vital Signs Vital signs: Temp Pulse Resp BP Pulse Ox 98.1 F 69 18 118/82 99 05/16/17 18:38 05/16/17 18:38 05/16/17 18:38 05/16/17 18:38 05/16/17 18:38 Discharge - Discharge Clinical Impression: Toothache Condition: Good Disposition: HOME, SELF-CARE Additional Instructions: TOOTHACHE: Your pain is due to dental decay. The tooth must be repaired in order for you to feel better. You will, therefore, be referred to a dentist. We do not have dentists on the staff at [facility]. Severe swelling or drainage around a tooth usually means a dental abscess. This also requires evaluation and treatment by the dentist, but antibiotics may be prescribed while awaiting dental treatment. You should be rechecked immediately if you develop major swelling of the face, increasing pain, a lump in the jaw or gums, headache, difficulty swallowing, or fever. CLINDAMYCIN: You have been given a prescription for the antibiotic clindamycin. It is often prescribed for infections in the mouth, such as dental infections or abscesses, and for skin infections due to MRSA. It's important that you take all the medication, unless instructed otherwise by your physician. Failure to complete the entire course can result in relapse of your condition. Common side effects of antibiotics include nausea, intestinal cramping, or diarrhea. Women may develop vaginal yeast infections, and babies can get yeast (thrush) in the mouth following the use of antibiotics. Contact your physician if you develop significant side effects from this medication. Allergy to this antibiotic can result in hives, wheezing, faintness, or itching. If symptoms of allergy occur, stop the medication and call the doctor. FOLLOW-UP CARE: You have been referred for follow-up care to the dentists listed below. Call the dentists office for an appointment as you were instructed or within the next two days. If you experience worsening or a significant change in your symptoms, notify the physician immediately or return to the Emergency Department at any time for re-evaluation. [facility] [address] [place], [place] Rakesh mornings, by appointment [facility] [address] [place] [address] [facility] [address] [facility] [address] [facility] Emergency Department [facility] [address] [email or web address] [address] [place] [address] Sunday- 8:00am to 5:00 pm Will see patients from other [facility]. Charges based on income and family size and accepts Medicare, Medicaid, and Insurances Will pull molars [facility] [id number] Hours of Operation 8:00 am - 4:30 pm weekdays The following dental offices accept Medicaid: [facility] Dr. Barry Dr. Musa Dr. Candelaria Dr. Interiano Emilio Woody Lutsavage, and [facility] Dr. Fernandez ([place]) Dr. Martin ([place]eraldine Mast) [facility] Drs. Remy and Sánchez ([place]) Dr. Carter ([place]) [facility] Dr. Dawson ([place]) Drs. Vail and ([place]) Medicaid Care Line Prescriptions: Clindamycin HCl 450 mg PO TID #21 capsule
== END 2017-05-16 20:01 | disposition home or self-care (01) ==
LOC: ER 18:28
DX: K02.9 Dental caries, unspecified (principal); K05.10 Chronic gingivitis, plaque induced; K08.89 Other specified disorders of teeth and supporting structures; J45.909 Unspecified asthma, uncomplicated; I10 Essential (primary) hypertension; Z88.6 Allergy status to analgesic agent; Z87.892 Personal history of anaphylaxis; Z88.0 Allergy status to penicillin; Z88.8 Allergy status to other drugs, medicaments and biological substances; Z88.1 Allergy status to other antibiotic agents; Z91.040 Latex allergy status; Z91.013 Allergy to seafood; Z88.5 Allergy status to narcotic agent
CPT/HCPCS: 99282; J3490

== ENCOUNTER 2017-05-20 21:26 | Emergency (ER) | payer MEDICAID ==
[2017-05-20 22:07] LABS: ABSOLUTE EOSINOPHILS # (AUTO) 0.2 10^3/uL (0.0-0.6); ABSOLUTE LYMPHOCYTES (AUTO) 3.2 10^3/uL (0.5-4.7); ABSOLUTE MONOCYTES (AUTO) 0.6 10^3/uL (0.1-1.4); ABSOLUTE NEUT (AUTO) 4.3 10^3/uL (1.7-8.2); BASOPHILS % (AUTO) 0.4 % (0-2); HEMATOCRIT 39.1 % (36.0-47.0); HEMOGLOBIN 13.5 g/dL (12.0-15.5); HGB HCT DIFFERENCE 1.4; LYMPHOCYTES % (AUTO) 38.8 % (13-45); MEAN CORPUSCULAR HEMOGLOBIN 31.9 pg (27.0-33.4); MEAN CORPUSCULAR HGB CONC 34.5 g/dL (32.0-36.0); MEAN CORPUSCULAR VOLUME 92 fl (80-97); MONOCYTES % (AUTO) 7.4 % (3-13); RED BLOOD COUNT 4.23 10^6/uL (3.72-5.28); RED CELL DISTRIBUTION WIDTH 12.9 % (11.5-14.0); SEGMENTED NEUTROPHILS % (AUTO) 51.4 % (42-78); WHITE BLOOD COUNT 8.4 10^3/uL (4.0-10.5)
[2017-05-20 22:15] LABS: AMORPHOUS SEDIMENT,URINE TRACE /HPF; APPEARANCE,URINE CLOUDY; BILIRUBIN,URINE NEGATIVE (NEGATIVE); GLUCOSE, URINE NEGATIVE (NEGATIVE); KETONES,URINE NEGATIVE (NEGATIVE); LEUKOCYTE ESTERASE,URINE TRACE (NEGATIVE); NITRITE,URINE NEGATIVE (NEGATIVE); PROTEIN,URINE NEGATIVE (NEGATIVE); URINE SPECIFIC GRAVITY 1.013; UROBILINOGEN,URINE NEGATIVE mg/dL (<2.0)
[2017-05-20 22:16] LABS: ALANINE AMINOTRANSFERASE 34 U/L (9-52); ALBUMIN 4.4 g/dL (3.5-5.0); ALKALINE PHOSPHATASE 53 U/L (38-126); ANION GAP 14 (5-19); ASPARTATE AMINO TRANSFERASE 15 U/L (14-36); BILIRUBIN,DIRECT 0.2 mg/dL (0.0-0.4); BILIRUBIN,TOTAL 0.2 mg/dL (0.2-1.3); BLOOD UREA NITROGEN 15 mg/dL (7-20); CALCIUM 9.8 mg/dL (8.4-10.2); CARBON DIOXIDE 19 mmol/L (22-30); CHLORIDE 111 mmol/L (98-107); CREATININE RESULT 0.55 mg/dL (0.52-1.25); GLUCOSE 98 mg/dL (75-110); POTASSIUM 3.9 mmol/L (3.6-5.0); SODIUM 143.6 mmol/L (137-145); TOTAL PROTEIN 7.1 g/dL (6.3-8.2)
--- NOTE | 2017-05-20 22:31 | ER Document Report ---
ED GI Bleed / Rectal Pain - General Chief Complaint: Rectal Bleeding Stated Complaint: RECTAL BLEEDING Time Seen by Provider: 05/20/17 22:01 Notes: Patient is a 26-year-old female who comes emergency department for chief complaint of rectal bleeding that started this evening. She denies pain In the rectum although she states she felt cramping in her lower abdomen earlier. She denies vomiting, fever, vaginal bleeding or discharge, dysuria. She denies dizziness or lightheadedness. She denies history of the same. Past medical history of seizure disorder and anxiety/depression. She is compliant with her medications. TRAVEL OUTSIDE OF THE [place] IN LAST 30 DAYS: No - Related Data Allergies/Adverse Reactions: alprazolam [From Xanax] Allergy (Severe, Verified 05/16/17 18:38) CHEMICAL REACTION RESULTING IN SEIZURE amoxicillin [Amoxicillin] Allergy (Severe, Verified 05/16/17 18:38) Difficulty breathing Amphetamine Aspartate * [From Adderall] Allergy (Severe, Verified 05/16/17 18:38 ) Anaphylaxis amphetamine sulfate [From Adderall] Allergy (Severe, Verified 05/16/17 18:38) Anaphylaxis bupropion HCl [From Wellbutrin] Allergy (Severe, Verified 05/16/17 18:38) Anaphylaxis cephalexin [Cephalexin] Allergy (Severe, Verified 05/16/17 18:38) Anaphylaxis dextroamphetamine [From Adderall] Allergy (Severe, Verified 05/16/17 18:38) Anaphylaxis latex [Latex] Allergy (Severe, Verified 05/16/17 18:38) Anaphylaxis naproxen [Naproxen] Allergy (Severe, Verified 05/16/17 18:38) Anaphylaxis quetiapine fumarate [From Seroquel] Allergy (Severe, Verified 05/16/17 18:38) Anaphylaxis sertraline HCl [From Zoloft] Allergy (Severe, Verified 05/16/17 18:38) Anaphylaxis shellfish derived [Shellfish Derived] Allergy (Severe, Verified 05/16/17 18:38) Anaphylaxis tramadol [Tramadol] Allergy (Severe, Verified 05/16/17 18:38) Anaphylaxis ziprasidone HCl [From Geodon] Allergy (Severe, Verified 05/16/17 18:38) Anaphylaxis ziprasidone mesylate [From Geodon] Allergy (Severe, Verified 05/16/17 18:38) Anaphylaxis aluminum hydroxide [From Maalox] Allergy (Verified 05/16/17 18:38) Anaphylaxis calcium carbonate [From Maalox] Allergy (Verified 05/16/17 18:38) Anaphylaxis diphenhydramine [From Benadryl Allergy] Allergy (Verified 05/16/17 18:38) ibuprofen [From Motrin] Allergy (Verified 05/16/17 18:38) ketorolac [From Toradol] Allergy (Verified 05/16/17 18:38) Magnesium Hydroxide [From Maalox] Allergy (Verified 05/16/17 18:38) Anaphylaxis simethicone [From Maalox] Allergy (Verified 05/16/17 18:38) Anaphylaxis seafood Allergy (Uncoded 05/16/17 18:38) Past Medical History - General Information source: Patient - Social History Smoking Status: Never Smoker Frequency of alcohol use: None Drug Abuse: None Lives with: Family Family History: Malignancy Patient has suicidal ideation: No Patient has homicidal ideation: No - Past Medical History Cardiac Medical History: Reports: Hx Hypertension Pulmonary Medical History: Reports: Hx Asthma, Hx Bronchitis, Hx Pneumonia Neurological Medical History: Reports: Hx Seizures Renal/ Medical History: Denies: Hx Peritoneal Dialysis GI Medical History: Reports: Hx Gastroesophageal Reflux Disease Musculoskeltal Medical History: Reports Hx Arthritis, Reports Hx Musculoskeletal Deformity, Reports Hx Musculoskeletal Trauma Psychiatric Medical History: Reports: Hx Anxiety, Hx Attention Deficit Hyperactivity Disorder, Hx Bipolar Disorder, Hx Borderline Personality Disorder , Hx Depression, Hx Post Traumatic Stress Disorder Past Surgical History: Reports: Hx Appendectomy, Hx Section, Hx Tonsillectomy, Hx Tubal Ligation - Immunizations Immunizations up to date: No Hx Diphtheria, Pertussis, Tetanus Vaccination: Yes - [id number] Hx Pneumococcal Vaccination: 08/13/13 Review of Systems - Review of Systems Constitutional: No symptoms reported EENT: No symptoms reported Cardiovascular: See HPI Respiratory: No symptoms reported Gastrointestinal: See HPI Genitourinary: No symptoms reported Female Genitourinary: No symptoms reported Musculoskeletal: No symptoms reported Skin: No symptoms reported Hematologic/Lymphatic: No symptoms reported Neurological/Psychological: No symptoms reported Physical Exam - Vital signs Vitals: Temp Pulse Resp BP Pulse Ox 98.4 F 79 16 127/82 H 98 05/20/17 21:26 05/20/17 21:26 05/20/17 21:26 05/20/17 21:26 05/20/17 21:26 Interpretation: Normal - General General appearance: Appears well, Alert In distress: None - HEENT Head: Normocephalic, Atraumatic Eyes: Normal Conjunctiva: Normal Extraocular movements intact: Yes Eyelashes: Normal Pupils: PERRL Mouth/Lips: Normal Mucous membranes: Normal Pharynx: Normal Neck: Normal - Respiratory Respiratory status: No respiratory distress Chest status: Nontender Breath sounds: Normal. No: Decreased air movement, Wheezing Chest palpation: Normal - Cardiovascular Rhythm: Regular. No: Tachycardia Heart sounds: Normal auscultation, S1 appreciated, S2 appreciated Murmur: No - Abdominal Inspection: Normal Distension: No distension Bowel sounds: Normal Tenderness: Nontender. No: Tender, Guarding Organomegaly: No organomegaly - Rectal Tenderness: No Stool: See lab result. No: Black, Bloody Hemorrhoids: Internal, External, Other - RN Diann present during exam - Back Back: Normal, Nontender. No: Tender - Extremities General upper extremity: Normal inspection, Nontender, Normal color, Normal ROM , Normal temperature General lower extremity: Normal inspection, Nontender, Normal color, Normal ROM , Normal temperature, Normal weight bearing. No: Guille's sign - Neurological Neuro grossly intact: Yes Cognition: Normal Orientation: AAOx4 [place] Coma Scale Eye Opening: Spontaneous [place] Coma Scale Verbal: Oriented Jessa Coma Scale Motor: Obeys Commands [place] Coma Scale Total: 15 Speech: Normal Motor strength normal: LUE, RUE, LLE, RLE Sensory: Normal - Psychological Associated symptoms: Normal affect, Normal mood - Skin Skin Temperature: Warm Skin Moisture: Dry Skin Color: Normal Course - Re-evaluation Re-evalutation: Patient is very well-appearing, she has no pain, soft abdomen, CBC unremarkable , chemistry unremarkable. Rectal examination shows both an internal hemorrhoid and a small external hemorrhoid, no bleeding on exam although Hemoccult is positive. However I suspect bleeding source is from the hemorrhoids. I discussed this with patient, recommended treatment and provided this, discussed follow-up with gastroenterology, discussed return precautions, patient states understanding and agreement. - Vital Signs Vital signs: Temp Pulse Resp BP Pulse Ox 98.4 F 77 18 127/83 H 98 05/20/17 21:26 05/20/17 22:41 05/20/17 22:41 05/20/17 22:41 05/20/17 22:41 - Laboratory Result Diagrams: 05/20/17 21:40 05/20/17 21:40 Laboratory results interpreted by me: 05/20/17 05/20/17 21:40 21:40 Chloride 111 H Carbon Dioxide 19 L Ur Leukocyte Esterase TRACE H Discharge - Discharge Clinical Impression: Rectal bleeding Condition: Stable Disposition: HOME, SELF-CARE Additional Instructions: On examination of you have both an internal and external hemorrhoid, this appears to be the source of your rectal bleeding. Recommendation is to take the stool softener given for the next 2-3 days, then increase fiber in your diet. Avoid any straining with bowel movements. Follow up with primary care. If symptoms continue follow up with the gastroenterology referral. See additional instructions below. Return to the emergency department for any concerning or worsening symptoms including severe bleeding, vomiting, fever, dizziness, or any other concerning symptoms. You have hemorrhoids. These are formed by enlargement of veins around the anus. The cause is increased pressure in the veins, from or straining at bowel movements. Hemorrhoids often cause itching and bleeding with bowel movements. When a hemorrhoid becomes clotted, severe pain and swelling result. Soothing creams and suppositories are often prescribed. Warm sitz-baths may also decrease pain, swelling, and itching. Eat a high-fiber diet. Stool softeners such as Metamucil will help. Keep the area very clean. Medicated cleansing pads (such as Tucks) are useful after bowel movements. A hose-mounted shower unit (like a shower massager at low water pressure) can be used to clean around tender hemorrhoid tags. You should call the doctor or return if you develop fever, increasing pain , or an enlarging mass around the anus, or if you simply fail to improve with treatment. Prescriptions: Docusate Sodium [Colace 100 mg Capsule] 100 mg PO DAILY #30 capsule Referrals: LUCIE TRAMMELL MD [ACTIVE STAFF] - Follow up as needed JAKY NUÑEZ MD [ACTIVE STAFF] - Follow up as needed
[2017-05-20 22:42] VITALS: BP 127/83
== END 2017-05-20 22:42 | disposition home or self-care (01) ==
LOC: ER 21:26
DX: K62.5 Hemorrhage of anus and rectum (principal); K64.4 Residual hemorrhoidal skin tags; K64.8 Other hemorrhoids; R10.30 Lower abdominal pain, unspecified; I10 Essential (primary) hypertension; Z88.0 Allergy status to penicillin; Z91.040 Latex allergy status; Z88.6 Allergy status to analgesic agent; Z88.4 Allergy status to anesthetic agent; Z91.013 Allergy to seafood; Z98.51 Tubal ligation status
CPT/HCPCS: 36415; 80053; 81001; 81025; 82272; 85025; 99283

== ENCOUNTER 2017-06-03 22:06 | Emergency (ER) | payer MEDICAID ==
[2017-06-03 22:44] VITALS: BP 109/67
[2017-06-03 23:29] LABS: APPEARANCE,URINE SLIGHTLY-CLOUDY; BILIRUBIN,URINE NEGATIVE (NEGATIVE); GLUCOSE, URINE NEGATIVE (NEGATIVE); KETONES,URINE NEGATIVE (NEGATIVE); LEUKOCYTE ESTERASE,URINE MODERATE (NEGATIVE); NITRITE,URINE NEGATIVE (NEGATIVE); PROTEIN,URINE NEGATIVE (NEGATIVE); URINE SPECIFIC GRAVITY 1.015; UROBILINOGEN,URINE NEGATIVE mg/dL (<2.0)
[2017-06-03 23:56] LABS: ABSOLUTE EOSINOPHILS # (AUTO) 0.1 10^3/uL (0.0-0.6); ABSOLUTE LYMPHOCYTES (AUTO) 3.1 10^3/uL (0.5-4.7); ABSOLUTE MONOCYTES (AUTO) 0.5 10^3/uL (0.1-1.4); ABSOLUTE NEUT (AUTO) 3.3 10^3/uL (1.7-8.2); BASOPHILS % (AUTO) 0.4 % (0-2); HEMATOCRIT 37.7 % (36.0-47.0); HEMOGLOBIN 12.9 g/dL (12.0-15.5); LYMPHOCYTES % (AUTO) 43.5 % (13-45); MEAN CORPUSCULAR HEMOGLOBIN 31.5 pg (27.0-33.4); MEAN CORPUSCULAR HGB CONC 34.3 g/dL (32.0-36.0); MEAN CORPUSCULAR VOLUME 92 fl (80-97); MONOCYTES % (AUTO) 7.4 % (3-13); RED BLOOD COUNT 4.11 10^6/uL (3.72-5.28); RED CELL DISTRIBUTION WIDTH 12.7 % (11.5-14.0); SEGMENTED NEUTROPHILS % (AUTO) 46.7 % (42-78); WHITE BLOOD COUNT 7.1 10^3/uL (4.0-10.5)
--- NOTE | 2017-06-04 00:32 | ER Document Report ---
ED General - General Chief Complaint: Headache, Worst Ever Stated Complaint: HEAD PAIN Time Seen by Provider: 06/04/17 00:19 Notes: Patient is a 26-year-old female with a history of seizure disorders on Dilantin. She says that she had a seizure and then fell and hit her head yesterday. She denies a headache. She denies any other injuries. She denies any vomiting since then. She says that her gait has been a bit off since then but this is not atypical for her as this has happened many times with her headaches. She has a history of chronic recurring headaches. She says she has been taking Fioricet at home but is not been helping her headaches. She is allergic to many other medications. Her neurologist is . Not on any blood thinning medications. Patient says she has been taking her Dilantin as prescribed and has not missed any dosages. TRAVEL OUTSIDE OF THE [place] IN LAST 30 DAYS: No - Related Data Allergies/Adverse Reactions: alprazolam [From Xanax] Allergy (Severe, Verified 05/16/17 18:38) CHEMICAL REACTION RESULTING IN SEIZURE amoxicillin [Amoxicillin] Allergy (Severe, Verified 05/16/17 18:38) Difficulty breathing Amphetamine Aspartate * [From Adderall] Allergy (Severe, Verified 05/16/17 18:38 ) Anaphylaxis amphetamine sulfate [From Adderall] Allergy (Severe, Verified 05/16/17 18:38) Anaphylaxis bupropion HCl [From Wellbutrin] Allergy (Severe, Verified 05/16/17 18:38) Anaphylaxis cephalexin [Cephalexin] Allergy (Severe, Verified 05/16/17 18:38) Anaphylaxis dextroamphetamine [From Adderall] Allergy (Severe, Verified 05/16/17 18:38) Anaphylaxis latex [Latex] Allergy (Severe, Verified 05/16/17 18:38) Anaphylaxis naproxen [Naproxen] Allergy (Severe, Verified 05/16/17 18:38) Anaphylaxis quetiapine fumarate [From Seroquel] Allergy (Severe, Verified 05/16/17 18:38) Anaphylaxis sertraline HCl [From Zoloft] Allergy (Severe, Verified 05/16/17 18:38) Anaphylaxis shellfish derived [Shellfish Derived] Allergy (Severe, Verified 05/16/17 18:38) Anaphylaxis tramadol [Tramadol] Allergy (Severe, Verified 05/16/17 18:38) Anaphylaxis ziprasidone HCl [From Geodon] Allergy (Severe, Verified 05/16/17 18:38) Anaphylaxis ziprasidone mesylate [From Geodon] Allergy (Severe, Verified 05/16/17 18:38) Anaphylaxis aluminum hydroxide [From Maalox] Allergy (Verified 05/16/17 18:38) Anaphylaxis calcium carbonate [From Maalox] Allergy (Verified 05/16/17 18:38) Anaphylaxis diphenhydramine [From Benadryl Allergy] Allergy (Verified 05/16/17 18:38) ibuprofen [From Motrin] Allergy (Verified 05/16/17 18:38) ketorolac [From Toradol] Allergy (Verified 05/16/17 18:38) Magnesium Hydroxide [From Maalox] Allergy (Verified 05/16/17 18:38) Anaphylaxis simethicone [From Maalox] Allergy (Verified 05/16/17 18:38) Anaphylaxis seafood Allergy (Uncoded 05/16/17 18:38) Past Medical History - Social History Smoking Status: Unknown if Ever Smoked Frequency of alcohol use: None Drug Abuse: None Family History: Malignancy Patient has suicidal ideation: No Patient has homicidal ideation: No - Past Medical History Cardiac Medical History: Reports: Hx Hypertension Pulmonary Medical History: Reports: Hx Asthma, Hx Bronchitis, Hx Pneumonia Neurological Medical History: Reports: Hx Seizures Renal/ Medical History: Denies: Hx Peritoneal Dialysis GI Medical History: Reports: Hx Gastroesophageal Reflux Disease Musculoskeltal Medical History: Reports Hx Arthritis, Reports Hx Musculoskeletal Deformity, Reports Hx Musculoskeletal Trauma Psychiatric Medical History: Reports: Hx Anxiety, Hx Attention Deficit Hyperactivity Disorder, Hx Bipolar Disorder, Hx Borderline Personality Disorder , Hx Depression, Hx Post Traumatic Stress Disorder Past Surgical History: Reports: Hx Appendectomy, Hx Section, Hx Tonsillectomy, Hx Tubal Ligation - Immunizations Immunizations up to date: No Hx Diphtheria, Pertussis, Tetanus Vaccination: Yes - [id number] Hx Pneumococcal Vaccination: 08/13/13 Review of Systems - Review of Systems Notes: My Normal Review Basic REVIEW OF SYSTEMS: CONSTITUTIONAL : Denies fever, chills, or sweats. Denies recent illness. CARDIOVASCULAR: Denies chest pain. RESPIRATORY: Denies cough, cold, or chest congestion. Denies shortness of breath, difficulty breathing, or wheezing. GASTROINTESTINAL: Denies abdominal pain. Denies nausea, vomiting, or diarrhea. Denies constipation. Last BM: GENITOURINARY: Denies difficulty urinating, painful urination, burning, frequency, or blood in urine. MUSCULOSKELETAL: Denies neck or back pain or joint pain or swelling. SKIN: Denies rash or skin lesions. NEUROLOGICAL: Denies altered mental status or loss of consciousness. Has a headache. Denies weakness or paralysis or loss of use of either side. Complains of some awkward gait since the seizure.. Denies sensory or motor loss. ALL OTHER SYSTEMS REVIEWED AND NEGATIVE. Physical Exam - Vital signs Vitals: Temp Pulse Resp BP Pulse Ox 98.0 F 84 20 109/67 98 06/03/17 22:43 06/03/17 22:43 06/03/17 22:43 06/03/17 22:43 06/03/17 22:43 - Notes Notes: General Appearance: Well nourished, alert, cooperative, no acute distress, no obvious discomfort. Patient says she has headache however when into the room she does not appear to be in any discomfort whatsoever. Is able answer all questions clearly and is in no apparent distress whatsoever. Vitals: reviewed, See vital signs table. Head: no swelling or tenderness to the head Eyes: PERRL, EOMI, Conjuctiva clear Mouth: No decreasd moisture Neck: Supple, no paracervical tenderness to palpation. No midline cervical spine tenderness palpation. Lungs: No wheezing, No rales, No rhonci, No accessory muscle use, good air exchange bilaterally. Heart: Normal rate, Regular rythm, No murmur, no rub Abdomen: Normal BS, soft, No rigidity, No abdominal tenderness, No guarding, no rebound, no abdominal masses, no organomegaly Extremities: strength 5/5 in all extremities, good pulses in all extremities, she has some mild tenderness with palpation over several areas over her extremities however she has full range of motion of her extremities without tenderness and has no bruising or swelling or abrasions to any of her extremities. She has no findings that would be consistent with fracture. Skin: warm, dry, appropriate color, no rash Neuro: speech clear, oriented x 3, normal affect, responds appropriately to questions. Renal nerves II through XII are intact. Distal sensation intact. Patient moves all extremities without difficulty. Normal gait. Normal Romberg. Course - Re-evaluation Re-evalutation: 06/04/17 01:22 Patient is fully neurologically intact. CT scan is negative. CT scan was obtained because she said she had severe headache since a seizure and also she had initially told the triage nurse that she was having some difficulty walking. Since being here she has no difficulty walking. Balance is normal. Romberg is normal. I reassessed her neurologic status after CT scan was back as well. Her repeat neuro exam is completely normal as well. She has me about checking her Dilantin level. I informed her initially did not check it because she informed me that she has not missed any dosages of her Dilantin that she has been taking her medications as prescribed. Also her neuro exam is completely normal. Also she is only had one seizure last 24 hours. I informed I would be happy to re-check it now. She says that she does not want to wait and have her checked at this time. She said she prefers his follow-up with Dr. Gross. I encouraged her follow-up with Dr. Gross on Sunday for close reevaluation. I strongly encourage her to return to ER immediately if she has recurrent seizures, worsening headache, or feels unwell. I was unable to give her anything for headache here being that she is allergic to multiple different medications. She is been taking Fioricet at home. She does have a history of some opiate abuse and therefore I do not think opiates are appropriate especially in the clinical setting where she does not appear to be in any pain whatsoever clinically on exam. Dictation of this chart was performed using voice recognition software; therefore, there may be some unintended grammatical errors. - Vital Signs Vital signs: Temp Pulse Resp BP Pulse Ox 98.0 F 84 20 109/67 98 06/03/17 22:43 06/03/17 22:43 06/03/17 22:43 06/03/17 22:43 06/03/17 22:43 - Laboratory Result Diagrams: 06/03/17 23:35 06/03/17 23:35 Laboratory results interpreted by me: 06/03/17 22:50 Urine Blood LARGE H Ur Leukocyte Esterase MODERATE H Discharge - Discharge Clinical Impression: Seizure Headache Qualifiers: Headache type: unspecified Headache chronicity pattern: acute headache Intractability: intractable Qualified Code(s): R51 - Headache Condition: Good Disposition: HOME, SELF-CARE Additional Instructions: Please follow up with Dr. Ricci for reevaluation. Please return to the ER immediately if you have worsening headaches, fevers, recurrent seizures or feel unwell. Please continue to take your seizure medications as prescribed. Referrals: KANDY HARTMAN MD [Primary Care Provider] - Follow up as needed FOREST RICCI MD [ACTIVE STAFF] - 06/04/17
--- NOTE | 2017-06-04 01:12 | RADIOLOGY REPORT (SQ) ---
EXAM DESCRIPTION: CT HEAD WITHOUT COMPLETED DATE/TIME: 06/04/2017 12:54 am REASON FOR STUDY: headache COMPARISON: CT head 05/12/2015, 04/18/2015. TECHNIQUE: Axial images acquired through the brain without intravenous contrast. Images reviewed wi th bone, brain and subdural windows. Images stored on PACS. All CT scanners at this facility use dose modulation, iterative reconstruction, and/or weight based d osing when appropriate to reduce radiation dose to as low as reasonably achievable (ALARA). [facility]: Dose Right [facility]: CareDose [facility]: Dose Right [facility]: Teradose 4D [facility]: Smart Genbook RADIATION DOSE: Up-to-date CT equipment and radiation dose reduction techniques were employed. CTDIv ol: 64.6 mGy. DLP: 1292 mGy-cm. mGy. LIMITATIONS: None. FINDINGS: VENTRICLES: Normal size and contour. CEREBRUM: No mass effect. No hemorrhage. No midline shift. Normal goins/white matter differentiatio n. No evidence for acute territorial infarction. CEREBELLUM: No mass effect. No hemorrhage. No alteration of density. No evidence for acute infarct ion. EXTRAAXIAL SPACES: No fluid collections. ORBITS AND GLOBE: Symmetrical contour of the globes. CALVARIUM: No depressed skull fracture. PARANASAL SINUSES: No air-fluid level. SOFT TISSUES: No hematoma. IMPRESSION: NO ACUTE INTRACRANIAL IMAGING FINDINGS. EVIDENCE OF ACUTE STROKE: NO. COMMENT: Quality ID # [id number]: Final reports with documentation of one or more dose reduction techniques (e.g., Automated exposure control, adjustment of the mA and/or kV according to patient size, use of iterative reconstruction technique) TECHNICAL DOCUMENTATION: JOB ID: [id number]- All Rights Reserved
== END 2017-06-04 01:27 | disposition home or self-care (01) ==
LOC: ER 22:06
DX: R51 Headache (principal); R56.9 Unspecified convulsions; Z79.899 Other long term (current) drug therapy
CPT/HCPCS: 36415; 70450; 80053; 81001; 81025; 82550; 82553; 84484; 85025; 99284

== ENCOUNTER 2017-06-08 12:14 | Emergency (ER) | payer MEDICAID ==
[2017-06-08] MEDS ORDERED: ACETAMINOPHEN 325 MG TABLET PO ONE (12:38)
--- NOTE | 2017-06-08 13:19 | RADIOLOGY REPORT (SQ) ---
EXAM DESCRIPTION: ANKLE RIGHT COMPLETE COMPLETED DATE/TIME: 06/08/2017 12:58 pm REASON FOR STUDY: pain injury COMPARISON: None. NUMBER OF VIEWS: Three views. TECHNIQUE: AP, lateral, and oblique radiographic images acquired of the right ankle. LIMITATIONS: None. FINDINGS: MINERALIZATION: Normal. BONES: No acute fracture or dislocation. No worrisome bone lesions. JOINTS: No effusions. SOFT TISSUES: No soft tissue swelling. No foreign body. OTHER: No other significant finding. IMPRESSION: NEGATIVE STUDY OF THE RIGHT ANKLE. NO RADIOGRAPHIC EVIDENCE OF ACUTE INJURY. TECHNICAL DOCUMENTATION: JOB ID: [id number] [employer]- All Rights Reserved
--- NOTE | 2017-06-08 13:20 | RADIOLOGY REPORT (SQ) ---
EXAM DESCRIPTION: FOOT RIGHT COMPLETE COMPLETED DATE/TIME: 06/08/2017 12:58 pm REASON FOR STUDY: pain injury COMPARISON: None. NUMBER OF VIEWS: Three views. TECHNIQUE: AP, lateral and oblique radiographic images acquired of the right foot. LIMITATIONS: None. FINDINGS: MINERALIZATION: Normal. BONES: No acute fracture or dislocation. No worrisome bone lesions. JOINTS: No effusions. SOFT TISSUES: No soft tissue swelling. No foreign body. OTHER: No other significant finding. IMPRESSION: NEGATIVE STUDY OF THE RIGHT FOOT. NO RADIOGRAPHIC EVIDENCE OF ACUTE INJURY. TECHNICAL DOCUMENTATION: JOB ID: [id number] [employer]- All Rights Reserved
--- NOTE | 2017-06-08 13:26 | ER Document Report ---
ED Extremity Problem, Lower - General Chief Complaint: Foot Injury Stated Complaint: RIGHT FOOT INJURY Time Seen by Provider: 06/08/17 12:38 Mode of Arrival: Ambulatory Information source: Patient Notes: 26-year-old female presented to ED for complaint of right foot and ankle pain after she kicked a chair someone was sitting in last night bending her fourth and fifth toe backwards and then she fell hurting the side of her foot and ankle. She states she had been taken Tylenol and Fioricet with no relief from pain. She states she is also elevated her foot with ice. TRAVEL OUTSIDE OF THE [place] IN LAST 30 DAYS: No - HPI Patient complains to provider of: Injury, Pain. No: Swelling Location: Ankle, Foot Occurred: Yesterday Where: Home, Indoors Onset/Duration: Persistent Quality of pain: Achy, Dull Severity: Severe Pain Level: 5 Context: Fell, Other - Treatment chair with foot Recent injury: Possibly Associated symptoms: Painful ambulation Exacerbated by: Movement, Walking Relieved by: Elevation, Ice - Related Data Allergies/Adverse Reactions: alprazolam [From Xanax] Allergy (Severe, Verified 05/16/17 18:38) CHEMICAL REACTION RESULTING IN SEIZURE amoxicillin [Amoxicillin] Allergy (Severe, Verified 05/16/17 18:38) Difficulty breathing Amphetamine Aspartate * [From Adderall] Allergy (Severe, Verified 05/16/17 18:38 ) Anaphylaxis amphetamine sulfate [From Adderall] Allergy (Severe, Verified 05/16/17 18:38) Anaphylaxis bupropion HCl [From Wellbutrin] Allergy (Severe, Verified 05/16/17 18:38) Anaphylaxis cephalexin [Cephalexin] Allergy (Severe, Verified 05/16/17 18:38) Anaphylaxis dextroamphetamine [From Adderall] Allergy (Severe, Verified 05/16/17 18:38) Anaphylaxis latex [Latex] Allergy (Severe, Verified 05/16/17 18:38) Anaphylaxis naproxen [Naproxen] Allergy (Severe, Verified 05/16/17 18:38) Anaphylaxis quetiapine fumarate [From Seroquel] Allergy (Severe, Verified 05/16/17 18:38) Anaphylaxis sertraline HCl [From Zoloft] Allergy (Severe, Verified 05/16/17 18:38) Anaphylaxis shellfish derived [Shellfish Derived] Allergy (Severe, Verified 05/16/17 18:38) Anaphylaxis tramadol [Tramadol] Allergy (Severe, Verified 05/16/17 18:38) Anaphylaxis ziprasidone HCl [From Geodon] Allergy (Severe, Verified 05/16/17 18:38) Anaphylaxis ziprasidone mesylate [From Geodon] Allergy (Severe, Verified 05/16/17 18:38) Anaphylaxis aluminum hydroxide [From Maalox] Allergy (Verified 05/16/17 18:38) Anaphylaxis calcium carbonate [From Maalox] Allergy (Verified 05/16/17 18:38) Anaphylaxis diphenhydramine [From Benadryl Allergy] Allergy (Verified 05/16/17 18:38) ibuprofen [From Motrin] Allergy (Verified 05/16/17 18:38) ketorolac [From Toradol] Allergy (Verified 05/16/17 18:38) Magnesium Hydroxide [From Maalox] Allergy (Verified 05/16/17 18:38) Anaphylaxis simethicone [From Maalox] Allergy (Verified 05/16/17 18:38) Anaphylaxis seafood Allergy (Uncoded 05/16/17 18:38) Past Medical History - General Information source: Patient - Social History Smoking Status: Former Smoker Cigarette use (# per day): No Chew tobacco use (# tins/day): No Smoking Education Provided: No Frequency of alcohol use: Occasional Drug Abuse: None Occupation: [employer] Lives with: Alone Family History: Arthritis, CAD, CVA, DM, Hyperlipidemia, Hypertension, Malignancy, Thyroid Disfunction Patient has suicidal ideation: No Patient has homicidal ideation: No - Past Medical History Cardiac Medical History: Reports: Hx Hypertension Pulmonary Medical History: Reports: Hx Asthma, Hx Bronchitis, Hx Pneumonia Neurological Medical History: Reports: Hx Seizures, Other - Chronic headaches Endocrine Medical History: Reports: None Renal/ Medical History: Reports: Hx Ovarian Cysts Malignancy Medical History: Reports: None GI Medical History: Reports: Hx Gastroesophageal Reflux Disease, Other - Hemorrhoids Musculoskeltal Medical History: Reports Hx Arthritis, Reports Hx Musculoskeletal Deformity, Reports Hx Musculoskeletal Trauma Skin Medical History: Reports None Psychiatric Medical History: Reports: Hx Anxiety, Hx Attention Deficit Hyperactivity Disorder, Hx Bipolar Disorder, Hx Borderline Personality Disorder , Hx Depression, Hx Post Traumatic Stress Disorder Traumatic Medical History: Reports: Hx Fractures - Ankle wrist shoulder and ribs Infectious Medical History: Reports: None Past Surgical History: Reports: Hx Appendectomy, Hx Section, Hx Oral Surgery, Hx Tonsillectomy, Hx Tubal Ligation - Immunizations Immunizations up to date: Yes Hx Diphtheria, Pertussis, Tetanus Vaccination: Yes - [id number] History of Influenza Vaccine for 05/2017 - 10/2017 Season: Yes Hx Pneumococcal Vaccination: 08/13/13 Review of Systems - Review of Systems Constitutional: No symptoms reported EENT: No symptoms reported Cardiovascular: No symptoms reported Respiratory: No symptoms reported Gastrointestinal: No symptoms reported Genitourinary: No symptoms reported Female Genitourinary: No symptoms reported Musculoskeletal: No symptoms reported Skin: No symptoms reported Hematologic/Lymphatic: No symptoms reported Neurological/Psychological: No symptoms reported -: Yes All other systems reviewed and negative Physical Exam - Vital signs Vitals: Temp Pulse Resp BP Pulse Ox 97.9 F 79 20 100/60 99 06/08/17 12:38 06/08/17 12:38 06/08/17 12:38 06/08/17 12:38 06/08/17 12:38 Interpretation: Normal - General General appearance: Appears well, Alert - HEENT Head: Normocephalic, Atraumatic Eyes: Normal Pupils: PERRL - Respiratory Respiratory status: No respiratory distress Chest status: Nontender Breath sounds: Normal Chest palpation: Normal - Cardiovascular Rhythm: Regular Heart sounds: Normal auscultation Murmur: No - Abdominal Inspection: Normal Distension: No distension Bowel sounds: Normal Tenderness: Nontender Organomegaly: No organomegaly - Back Back: Normal, Nontender - Extremities General upper extremity: Normal inspection, Nontender, Normal color, Normal ROM , Normal temperature General lower extremity: Normal inspection, Normal color, Normal ROM, Normal temperature, Normal weight bearing. No: Guille's sign Ankle: Tender. No: Abrasion, Deformity, Ecchymosis, Edema, Instability, Laceration, Limited ROM, Positive Diaz's test Foot: Tender, No evidence of FB, Tender 5th metatarsal. No: Abrasion, Deformity , Ecchymosis, Edema, Instability, Laceration, Metatarsal compress. pain, Nail injury, Navicular tenderness, Puncture wound - Neurological Neuro grossly intact: Yes Cognition: Normal Orientation: AAOx4 [place] Coma Scale Eye Opening: Spontaneous [place] Coma Scale Verbal: Oriented [place] Coma Scale Motor: Obeys Commands [place] Coma Scale Total: 15 Speech: Normal Motor strength normal: LUE, RUE, LLE, RLE Sensory: Normal - Psychological Associated symptoms: Normal affect, Normal mood - Skin Skin Temperature: Warm Skin Moisture: Dry Skin Color: Normal Course - Vital Signs Vital signs: Temp Pulse Resp BP Pulse Ox 97.9 F 79 20 100/60 99 06/08/17 12:38 06/08/17 12:38 06/08/17 12:38 06/08/17 12:38 06/08/17 12:38 - Diagnostic Test Radiology reviewed: Image reviewed, Reports reviewed Procedures - Immobilization Right Foot Time completed: 13:38 Immobilizer type: Dl wrap, Crutches Performed by: RN, PCT Post-Proc Neuro Vasc Exam: Normal Alignment checked and good: Yes Discharge - Discharge Clinical Impression: Foot contusion Qualifiers: Encounter type: initial encounter Laterality: right Qualified Code(s): S90.31XA - Contusion of right foot, initial encounter Foot sprain Qualifiers: Encounter type: initial encounter Laterality: right Qualified Code(s): S93.601A - Unspecified sprain of right foot, initial encounter Condition: Stable Disposition: HOME, SELF-CARE Instructions: Family Physicians / Practices Additional Instructions: SPRAIN: Your injury is a sprain. A sprain results from stretching or tearing of the ligaments, usually from a twisting injury. The ligaments will require time and protection in order to heal properly. Many sprains are quite disabling and should be taken seriously. The usual initial treatment of sprains is cold packs, elevation, and rest of the injured area. Your physician has assessed the seriousness of your ligament injury, and has outlined a treatment plan. Understand that this treatment may change, depending on how you progress. If a re-examination was recommended, it is important that you follow up as instructed. Call the doctor any time if there is severe pain, numbness, or loss of function in the injured area. CONTUSION: Your injury has resulted in a contusion -- a crushing of the deep tissues. No injury to important structures was detected during the physician's exam. Contusions vary in the amount of pain they cause, and in the length of time required for healing. Typically, the area will become bruised, and will remain painful to touch for two or three weeks. However, most patients are back to working and playing within a few days. After the initial period of rest and cold-packs, your symptoms (together with the doctor's recommendations) will determine how rapidly you can get back to full activity. Usually this means "do what feels okay, but don't do things that hurt." If re-examination was recommended, it's important to follow up as instructed. Call the doctor or return any time if pain increases, if swelling becomes severe, if you develop numbness or weakness in an injured extremity, or if any other alarming symptoms occur. USE OF TYLENOL (ACETAMINOPHEN): Acetaminophen may be taken for pain relief or fever control. It's much safer than aspirin, offering a wider range of "safe" dosages. It is safe during . Some brand names are Tylenol, Panadol, Datril, Anacin 3, Tempra, and Liquiprin. Acetaminophen can be repeated every four hours. The following are maximum recommended dosages: WEIGHT Dose Drops Elixir Chewable( 80mg) (LBS.) drprs=droppers tsp=teaspoon 6 40 mg 0.4 ml (1/2) 6-11 80 mg 0.8 ml (full) tsp 1 tab 12-16 120 mg 1 1/2 drprs 3/4 tsp 1 1/2 tabs 17-23 160 mg 2 drprs 1 tsp 2 tabs 24-30 240 mg 3 drprs 1 1/2 tsp 3 tabs 30-35 320 mg 2 tsp 4 tabs 36-41 360 mg 2 1/4 tsp 4 1/2 tabs 42-47 400 mg 2 1/2 tsp 5 tabs 48-53 480 mg 3 tsp 6 tabs 54-59 520 mg 3 1/4 tsp 6 1/2 tabs 60-64 560 mg 3 1/2 tsp 7 tabs 65-70 600 mg 3 3/4 tsp 7 1/2 tabs 71-76 640 mg 4 tsp 8 tabs 77-82 720 mg 4 1/2 tsp 9 tabs 83-88 800 mg 5 tsp 10 tabs >89 pounds or adults 650 mg to 900 mg Acetaminophen can be repeated every four hours. Maximum dose not to exceed 4000 mg a day. These maximum recommended dosages are slightly higher than the dosages written on the product container, but these dosages are very safe and below the toxic dosage for acetaminophen. USE OF CRUTCHES: The doctor has recommended that you not bear weight at this time. You will need to use crutches. Adjust the crutches so the tops come to about two inches under the armpit while you are standing upright. Use your hands -- not your armpits -- to support your weight. To get into a chair, support yourself with one crutch on the injured side. Hold the chair with the other hand, then lower yourself while putting all your weight on the good leg. Going up stairs is `good leg up, step up, then bring up crutches and bad leg.' Down stairs is `bad leg and crutches down, then bring good leg down.' If you develop numbness or swelling in an arm or hand, you are using the crutches incorrectly. Return if you are having any problems with the crutches. ICE & ELEVATION: Apply ice packs frequently against the painful area. Many different schedules are recommended, such as "20 minutes on, 20 minutes off" or "one hour ice, two hours rest." If you need to work, you may need to go longer between ice treatments. You should plan to have the area ice packed AT LEAST one- fourth of the time. The ice should be applied over the wrap, tape, or splint, or over a layer of cloth -- not directly against the skin. Some ice bags have a built-in cloth and can be put directly on the skin. Your injured part should be elevated as much as possible over the next 48 hours. Try to keep the injury above the level of the heart. Avoid use of the injured area. Elevation and rest will decrease the swelling. Dl Wrap A compression dressing (dl wrap) has been placed. This helps hold the area still. It limits swelling and internal bleeding. The wrap should be comfortably snug -- not tight. You should feel a sense of pressure, but not severe pain under the wrap. Unless the physician tells you otherwise, you can adjust the wrap for comfort. If the wrap causes symptoms suggesting it's too tight -- uncomfortable pressure, swelling or discoloration beyond the wrap, numbness, or severe pain - - you must loosen the wrap. If these symptoms don't resolve promptly, return for re-evaluation. FOLLOW-UP CARE: If you have been referred to a physician for follow-up care, call the physician s office for an appointment as you were instructed or within the next two days. If you experience worsening or a significant change in your symptoms, notify the physician immediately or return to the Emergency Department at any time for re-evaluation. Referrals: KERRIE GRAY DPM [ACTIVE STAFF] - Follow up as needed
[2017-06-08 13:49] VITALS: BP 112/68
== END 2017-06-08 13:46 | disposition home or self-care (01) ==
LOC: ER 12:14
DX: S93.601A Unspecified sprain of right foot, initial encounter (principal); M25.571 Pain in right ankle and joints of right foot; M79.671 Pain in right foot; W18.09XA Striking against other object with subsequent fall, initial encounter; Y92.009 Unspecified place in unspecified non-institutional (private) residence as the place of occurrence of the external cause; I10 Essential (primary) hypertension; J45.909 Unspecified asthma, uncomplicated; Z88.0 Allergy status to penicillin; Z87.892 Personal history of anaphylaxis; Z88.1 Allergy status to other antibiotic agents; Z88.8 Allergy status to other drugs, medicaments and biological substances; Z91.040 Latex allergy status; Z91.013 Allergy to seafood; Z88.5 Allergy status to narcotic agent; Z88.6 Allergy status to analgesic agent; Z87.891 Personal history of nicotine dependence; Z87.81 Personal history of (healed) traumatic fracture
CPT/HCPCS: 99283; 73610; 73630; J3490

== ENCOUNTER 2017-06-22 19:58 | Emergency (ER) | payer MEDICAID ==
[2017-06-22] MEDS ORDERED: HYDROXYZINE PAMOATE 50 MG CAPSULE PO ONE (21:33)
[2017-06-22 22:02] LABS: APPEARANCE,URINE CLOUDY; BILIRUBIN,URINE NEGATIVE (NEGATIVE); GLUCOSE, URINE NEGATIVE (NEGATIVE); KETONES,URINE NEGATIVE (NEGATIVE); LEUKOCYTE ESTERASE,URINE LARGE (NEGATIVE); NITRITE,URINE NEGATIVE (NEGATIVE); PROTEIN,URINE 30 mg/dL (NEGATIVE); URINE SPECIFIC GRAVITY 1.026; UROBILINOGEN,URINE NEGATIVE mg/dL (<2.0)
[2017-06-22 22:12] LABS: URINE BARBITURATES SCREEN UNCONFIRMED POSITIVE; URINE METHADONE SCREEN NEGATIVE; URINE OPIATES LOW NEGATIVE; URINE PHENCYCLIDINE SCREEN NEGATIVE
--- NOTE | 2017-06-22 22:13 | ER Document Report ---
ED Psych Disorder / Suicide - General Chief Complaint: Psych Problem Stated Complaint: IVC Time Seen by Provider: 06/22/17 21:21 Mode of Arrival: Ambulatory Information source: Patient TRAVEL OUTSIDE OF THE [place] IN LAST 30 DAYS: No - HPI Patient complains to provider of: Other - Anxiety Onset: Other - 5 days Onset was: Gradual Quality of pain: Achy Severity: Mild Pain Level: 2 Suicide Risk Factors: Lack of social support Normal mood: Yes Associated symptoms: Normal affect, Normal mood Similar symptoms previously: Yes Recently seen / treated by doctor: Yes Notes: Patient is a 26-year-old female who is well-known to this emergency department, she presents today complaining of worsening paranoia and anxiety since Sunday when she was discharged from an inpatient psychiatric hospitalization, she currently lives alone in an apartment of her own, she denies any suicidal or homicidal ideation, she missed an appointment with her psychiatrist yesterday due to transportation issues, she reports a decreased appetite, trouble concentrating, and some low back pain without injury, she does report that her paranoia has gotten so bad that any little noise she hears makes her jump, and she is afraid to leave her apartment at this point in time, she does report that both her lithium and gabapentin were increased upon discharge from her psychiatric hospitalization, she also takes Trileptal Dilantin and Trokendi, is also supposed to take Prilosec and Zyrtec but has not filled prescriptions for these medications yet, she denies missing any doses of her medications recently - Related Data Allergies/Adverse Reactions: alprazolam [From Xanax] Allergy (Severe, Verified 06/22/17 20:35) CHEMICAL REACTION RESULTING IN SEIZURE amoxicillin [Amoxicillin] Allergy (Severe, Verified 06/22/17 20:35) Difficulty breathing Amphetamine Aspartate * [From Adderall] Allergy (Severe, Verified 06/22/17 20:35 ) Anaphylaxis amphetamine sulfate [From Adderall] Allergy (Severe, Verified 06/22/17 20:35) Anaphylaxis bupropion HCl [From Wellbutrin] Allergy (Severe, Verified 06/22/17 20:35) Anaphylaxis cephalexin [Cephalexin] Allergy (Severe, Verified 06/22/17 20:35) Anaphylaxis dextroamphetamine [From Adderall] Allergy (Severe, Verified 06/22/17 20:35) Anaphylaxis latex [Latex] Allergy (Severe, Verified 06/22/17 20:35) Anaphylaxis naproxen [Naproxen] Allergy (Severe, Verified 06/22/17 20:35) Anaphylaxis quetiapine fumarate [From Seroquel] Allergy (Severe, Verified 06/22/17 20:35) Anaphylaxis sertraline HCl [From Zoloft] Allergy (Severe, Verified 06/22/17 20:35) Anaphylaxis shellfish derived [Shellfish Derived] Allergy (Severe, Verified 06/22/17 20:35) Anaphylaxis tramadol [Tramadol] Allergy (Severe, Verified 06/22/17 20:35) Anaphylaxis ziprasidone HCl [From Geodon] Allergy (Severe, Verified 06/22/17 20:35) Anaphylaxis ziprasidone mesylate [From Geodon] Allergy (Severe, Verified 06/22/17 20:35) Anaphylaxis aluminum hydroxide [From Maalox] Allergy (Verified 06/22/17 20:35) Anaphylaxis calcium carbonate [From Maalox] Allergy (Verified 06/22/17 20:35) Anaphylaxis diphenhydramine [From Benadryl Allergy] Allergy (Verified 06/22/17 20:35) ibuprofen [From Motrin] Allergy (Verified 06/22/17 20:35) ketorolac [From Toradol] Allergy (Verified 06/22/17 20:35) Magnesium Hydroxide [From Maalox] Allergy (Verified 06/22/17 20:35) Anaphylaxis simethicone [From Maalox] Allergy (Verified 06/22/17 20:35) Anaphylaxis seafood Allergy (Uncoded 06/22/17 20:35) Past Medical History - General Information source: Patient - Social History Smoking Status: Never Smoker Family History: Arthritis, CAD, CVA, DM, Hyperlipidemia, Hypertension, Malignancy, Thyroid Disfunction Patient has suicidal ideation: No Patient has homicidal ideation: No - Past Medical History Cardiac Medical History: Reports: Hx Hypertension Pulmonary Medical History: Reports: Hx Asthma, Hx Bronchitis, Hx Pneumonia Neurological Medical History: Reports: Hx Seizures Renal/ Medical History: Reports: Hx Ovarian Cysts. Denies: Hx Peritoneal Dialysis GI Medical History: Reports: Hx Gastroesophageal Reflux Disease Musculoskeltal Medical History: Reports Hx Arthritis, Reports Hx Musculoskeletal Deformity, Reports Hx Musculoskeletal Trauma Psychiatric Medical History: Reports: Hx Anxiety, Hx Attention Deficit Hyperactivity Disorder, Hx Bipolar Disorder, Hx Borderline Personality Disorder , Hx Depression, Hx Post Traumatic Stress Disorder Traumatic Medical History: Reports: Hx Fractures - Ankle wrist shoulder and ribs Past Surgical History: Reports: Hx Appendectomy, Hx Section, Hx Oral Surgery, Hx Tonsillectomy, Hx Tubal Ligation - Immunizations Immunizations up to date: Yes Hx Diphtheria, Pertussis, Tetanus Vaccination: Yes - [id number] Hx Pneumococcal Vaccination: 08/13/13 Review of Systems - Review of Systems Constitutional: No symptoms reported EENT: No symptoms reported Cardiovascular: No symptoms reported Respiratory: No symptoms reported Gastrointestinal: No symptoms reported Genitourinary: No symptoms reported Female Genitourinary: No symptoms reported Musculoskeletal: Back pain Skin: No symptoms reported Hematologic/Lymphatic: No symptoms reported Neurological/Psychological: See HPI -: Yes All other systems reviewed and negative Physical Exam - Vital signs Vitals: Temp Pulse Resp BP Pulse Ox 98.7 F 66 18 105/62 100 06/22/17 20:36 06/22/17 20:36 06/22/17 20:36 06/22/17 20:36 06/22/17 20:36 Interpretation: Normal - General General appearance: Appears well, Alert - HEENT Head: Normocephalic, Atraumatic Eyes: Normal Pupils: PERRL - Respiratory Respiratory status: No respiratory distress Chest status: Nontender Breath sounds: Normal Chest palpation: Normal - Cardiovascular Rhythm: Regular Heart sounds: Normal auscultation Murmur: No - Abdominal Inspection: Normal Distension: No distension Bowel sounds: Normal Tenderness: Nontender Organomegaly: No organomegaly - Back Back: Normal, Nontender - Extremities General upper extremity: Normal inspection, Nontender, Normal color, Normal ROM , Normal temperature General lower extremity: Normal inspection, Nontender, Normal color, Normal ROM , Normal temperature, Normal weight bearing. No: Guille's sign - Neurological Neuro grossly intact: Yes Cognition: Normal Orientation: AAOx4 [place] Coma Scale Eye Opening: Spontaneous [place] Coma Scale Verbal: Oriented [place] Coma Scale Motor: Obeys Commands [place] Coma Scale Total: 15 Speech: Normal Motor strength normal: LUE, RUE, LLE, RLE Sensory: Normal - Psychological Associated symptoms: Normal affect, Normal mood - Skin Skin Temperature: Warm Skin Moisture: Dry Skin Color: Normal Course - Re-evaluation Re-evalutation: 06/22/17 23:43 Patient urinalysis is consistent with a urinary tract infection which is likely the cause of her back pain, she is calm and cooperative, she does report paranoia and anxiety was given 1 dose of Vistaril in the emergency department, she was strongly advised to follow-up with her psychiatrist within the next 2-3 days for further evaluation and treatment, as mentioned before patient is well- known to this emergency department and she is actually the most coherent and healthy-appearing during her visit today as I have ever seen her during visits in this department, she was started on antibiotics for her urinary tract infection, patient acknowledges understanding and agreement with treatment plan - Vital Signs Vital signs: Temp Pulse Resp BP Pulse Ox 98.8 F 70 20 112/70 100 06/22/17 23:25 06/22/17 23:25 06/22/17 23:25 06/22/17 23:25 06/22/17 23:25 - Laboratory Result Diagrams: 06/22/17 22:31 06/22/17 22:31 Laboratory results interpreted by me: 06/22/17 06/22/17 06/22/17 21:05 22:31 22:31 Chloride 114 H Carbon Dioxide 21 L Urine Protein 30 H Urine Blood LARGE H Ur Leukocyte Esterase LARGE H Salicylates < 1.0 L Acetaminophen < 10 L Phenytoin 9.1 L Discharge - Discharge Clinical Impression: Anxiety Urinary tract infection Qualifiers: Urinary tract infection type: site unspecified Hematuria presence: without hematuria Qualified Code(s): N39.0 - Urinary tract infection, site not specified Condition: Stable Disposition: HOME, SELF-CARE Instructions: Anxiety ([facility]), Nitrofurantoin ([facility]), Urinary Tract Infection ([facility] ) Additional Instructions: Follow up with your primary care provider and mental health professional in one to 2 days. Return to the emergency room immediately if symptoms worsen or any additional concerns. Prescriptions: Nitrofurantoin/Nitrofuran Mac [Macrobid 100 mg Capsule] 100 mg PO BID #20 capsule
[2017-06-22 22:48] LABS: ABSOLUTE EOSINOPHILS # (AUTO) 0.2 10^3/uL (0.0-0.6); ABSOLUTE LYMPHOCYTES (AUTO) 2.6 10^3/uL (0.5-4.7); ABSOLUTE MONOCYTES (AUTO) 0.5 10^3/uL (0.1-1.4); ABSOLUTE NEUT (AUTO) 3.6 10^3/uL (1.7-8.2); BASOPHILS % (AUTO) 0.3 % (0-2); EOSINOPHILS % (AUTO) 2.6 % (0-6); HEMOGLOBIN 12.7 g/dL (12.0-15.5); HGB HCT DIFFERENCE 1.1; LYMPHOCYTES % (AUTO) 37.6 % (13-45); MEAN CORPUSCULAR HEMOGLOBIN 32.1 pg (27.0-33.4); MEAN CORPUSCULAR HGB CONC 34.3 g/dL (32.0-36.0); MEAN CORPUSCULAR VOLUME 94 fl (80-97); RED BLOOD COUNT 3.96 10^6/uL (3.72-5.28); RED CELL DISTRIBUTION WIDTH 12.4 % (11.5-14.0); SEGMENTED NEUTROPHILS % (AUTO) 52.5 % (42-78); WHITE BLOOD COUNT 6.9 10^3/uL (4.0-10.5)
[2017-06-22 23:04] LABS: ALANINE AMINOTRANSFERASE 42 U/L (9-52); ALBUMIN 4.2 g/dL (3.5-5.0); ALKALINE PHOSPHATASE 49 U/L (38-126); ANION GAP 10 (5-19); ASPARTATE AMINO TRANSFERASE 16 U/L (14-36); BILIRUBIN,DIRECT 0.4 mg/dL (0.0-0.4); BILIRUBIN,TOTAL 0.4 mg/dL (0.2-1.3); BLOOD UREA NITROGEN 13 mg/dL (7-20); CALCIUM 9.2 mg/dL (8.4-10.2); CARBON DIOXIDE 21 mmol/L (22-30); CHLORIDE 114 mmol/L (98-107); CREATININE RESULT 0.77 mg/dL (0.52-1.25); GLUCOSE 79 mg/dL (75-110); SODIUM 144.7 mmol/L (137-145); TOTAL PROTEIN 6.7 g/dL (6.3-8.2)
[2017-06-22 23:05] LABS: ALCOHOL < 10 mg/dL (NONE DETECTED)
[2017-06-22] MEDS ORDERED: NITROFURANTOIN MONOHYD/M-CRYST 100 MG CAPSULE PO ONE (23:18)
[2017-06-22 23:32] VITALS: BP 112/70
--- NOTE | 2017-06-23 08:35 | EKG REPORT ---
SEVERITY:- ABNORMAL ECG - SINUS RHYTHM FIRST DEGREE AV BLOCK BORDERLINE T ABNORMALITIES, ANTERIOR LEADS : Confirmed by: Lul Collins MD 23-Jun-2017 08:35:33
== END 2017-06-22 23:25 | disposition home or self-care (01) ==
LOC: ER 19:58
DX: N39.0 Urinary tract infection, site not specified (principal); F41.9 Anxiety disorder, unspecified; R63.0 Anorexia; M54.5 Low back pain; Z79.899 Other long term (current) drug therapy
CPT/HCPCS: 93005; 99284; 36415; 80307 ×4; 80178; 80185; 85025; 80053; 81001; 93010; J3490 ×2; J8499

== ENCOUNTER 2017-06-24 18:28 | Emergency (ER) | payer MEDICAID ==
[2017-06-24 19:21] LABS: ABSOLUTE EOSINOPHILS # (AUTO) 0.2 10^3/uL (0.0-0.6); ABSOLUTE LYMPHOCYTES (AUTO) 1.9 10^3/uL (0.5-4.7); ABSOLUTE MONOCYTES (AUTO) 0.5 10^3/uL (0.1-1.4); ABSOLUTE NEUT (AUTO) 4.2 10^3/uL (1.7-8.2); BASOPHILS % (AUTO) 0.5 % (0-2); EOSINOPHILS % (AUTO) 2.3 % (0-6); HEMATOCRIT 38.3 % (36.0-47.0); HEMOGLOBIN 13.3 g/dL (12.0-15.5); HGB HCT DIFFERENCE 1.6; LYMPHOCYTES % (AUTO) 27.8 % (13-45); MEAN CORPUSCULAR HEMOGLOBIN 32.2 pg (27.0-33.4); MEAN CORPUSCULAR HGB CONC 34.8 g/dL (32.0-36.0); MEAN CORPUSCULAR VOLUME 93 fl (80-97); RED BLOOD COUNT 4.13 10^6/uL (3.72-5.28); RED CELL DISTRIBUTION WIDTH 12.4 % (11.5-14.0); SEGMENTED NEUTROPHILS % (AUTO) 62.4 % (42-78); WHITE BLOOD COUNT 6.8 10^3/uL (4.0-10.5)
--- NOTE | 2017-06-24 19:24 | ER Document Report ---
ED Psych Disorder / Suicide - General Chief Complaint: Psych Problem Stated Complaint: PSYCHE EVAL// LACERATION LT WRIST Time Seen by Provider: 06/24/17 19:20 Notes: The patient is a 26-year-old female, past medical history schizophrenia, depression, presents by EMS after she cut her left wrist with a blade. She said that she was going to overdose but her friend on facetime told her not to and she called 911. Patient was recently discharged from inpatient psych hospital earlier this week. She denies numbness, tingling, heavy bleeding or any ingestion of pills. TRAVEL OUTSIDE OF THE [place] IN LAST 30 DAYS: No - Related Data Allergies/Adverse Reactions: alprazolam [From Xanax] Allergy (Severe, Verified 06/22/17 20:35) CHEMICAL REACTION RESULTING IN SEIZURE amoxicillin [Amoxicillin] Allergy (Severe, Verified 06/22/17 20:35) Difficulty breathing Amphetamine Aspartate * [From Adderall] Allergy (Severe, Verified 06/22/17 20:35 ) Anaphylaxis amphetamine sulfate [From Adderall] Allergy (Severe, Verified 06/22/17 20:35) Anaphylaxis bupropion HCl [From Wellbutrin] Allergy (Severe, Verified 06/22/17 20:35) Anaphylaxis cephalexin [Cephalexin] Allergy (Severe, Verified 06/22/17 20:35) Anaphylaxis dextroamphetamine [From Adderall] Allergy (Severe, Verified 06/22/17 20:35) Anaphylaxis latex [Latex] Allergy (Severe, Verified 06/22/17 20:35) Anaphylaxis naproxen [Naproxen] Allergy (Severe, Verified 06/22/17 20:35) Anaphylaxis quetiapine fumarate [From Seroquel] Allergy (Severe, Verified 06/22/17 20:35) Anaphylaxis sertraline HCl [From Zoloft] Allergy (Severe, Verified 06/22/17 20:35) Anaphylaxis shellfish derived [Shellfish Derived] Allergy (Severe, Verified 06/22/17 20:35) Anaphylaxis tramadol [Tramadol] Allergy (Severe, Verified 06/22/17 20:35) Anaphylaxis ziprasidone HCl [From Geodon] Allergy (Severe, Verified 06/22/17 20:35) Anaphylaxis ziprasidone mesylate [From Geodon] Allergy (Severe, Verified 06/22/17 20:35) Anaphylaxis aluminum hydroxide [From Maalox] Allergy (Verified 06/22/17 20:35) Anaphylaxis calcium carbonate [From Maalox] Allergy (Verified 06/22/17 20:35) Anaphylaxis diphenhydramine [From Benadryl Allergy] Allergy (Verified 06/22/17 20:35) ibuprofen [From Motrin] Allergy (Verified 06/22/17 20:35) ketorolac [From Toradol] Allergy (Verified 06/22/17 20:35) Magnesium Hydroxide [From Maalox] Allergy (Verified 06/22/17 20:35) Anaphylaxis simethicone [From Maalox] Allergy (Verified 06/22/17 20:35) Anaphylaxis seafood Allergy (Uncoded 06/22/17 20:35) Home Medications: Current Home Medications Cetirizine HCl [Zyrtec] 10 mg PO DAILY 06/24/17 [History] Docusate Sodium [Colace] 100 mg PO DAILY 06/24/17 [History] Gabapentin 1,200 mg PO QHS 06/24/17 [History] Omeprazole Magnesium [Prilosec Otc] 40 mg PO DAILY 06/24/17 [History] Oxcarbazepine [Trileptal 150 mg Tablet] 300 mg PO DAILY 06/24/17 [History] Oxcarbazepine [Trileptal] 600 mg PO QHS 06/24/17 [History] Topiramate [Trokendi Xr] 200 mg PO QHS 06/24/17 [History] Past Medical History - General Information source: Patient - Social History Smoking Status: Unknown if Ever Smoked Family History: Arthritis, CAD, CVA, DM, Hyperlipidemia, Hypertension, Malignancy, Thyroid Disfunction - Past Medical History Cardiac Medical History: Reports: Hx Hypertension Pulmonary Medical History: Reports: Hx Asthma, Hx Bronchitis, Hx Pneumonia Neurological Medical History: Reports: Hx Seizures Renal/ Medical History: Reports: Hx Ovarian Cysts. Denies: Hx Peritoneal Dialysis GI Medical History: Reports: Hx Gastroesophageal Reflux Disease Musculoskeltal Medical History: Reports Hx Arthritis, Reports Hx Musculoskeletal Deformity, Reports Hx Musculoskeletal Trauma Psychiatric Medical History: Reports: Hx Anxiety, Hx Attention Deficit Hyperactivity Disorder, Hx Bipolar Disorder, Hx Borderline Personality Disorder , Hx Depression, Hx Post Traumatic Stress Disorder Traumatic Medical History: Reports: Hx Fractures - Ankle wrist shoulder and ribs Past Surgical History: Reports: Hx Appendectomy, Hx Section, Hx Oral Surgery, Hx Tonsillectomy, Hx Tubal Ligation - Immunizations Immunizations up to date: Yes Hx Diphtheria, Pertussis, Tetanus Vaccination: Yes - [id number] Hx Pneumococcal Vaccination: 08/13/13 Review of Systems - Review of Systems Notes: REVIEW OF SYSTEMS: CONSTITUTIONAL: -fevers, -chills EENT: -eye pain, -difficulty swallowing, -nasal congestion CARDIOVASCULAR:-chest pain, -syncope. RESPIRATORY: -cough, -SOB GASTROINTESTINAL: -abdominal pain, -nausea, -vomiting, -diarrhea GENITOURINARY: -dysuria, -hematuria MUSCULOSKELETAL: -back pain, -neck pain SKIN: +superficial abrasions HEMATOLOGIC: -easy bruising or bleeding. LYMPHATIC: -swollen, enlarged glands. NEUROLOGICAL: -altered mental status or loss of consciousness, -headache, - neurologic symptoms PSYCHIATRIC: +anxiety, +depression. ALL OTHER SYSTEMS REVIEWED AND NEGATIVE. Physical Exam - Vital signs Vitals: Temp Resp BP 97.9 F 20 126/75 H 06/24/17 19:02 06/24/17 19:02 06/24/17 19:02 - Notes Notes: PHYSICAL EXAMINATION: GENERAL: Well-appearing, well-nourished and in no acute distress. HEAD: Atraumatic, normocephalic. EYES: Pupils equal round and reactive to light, extraocular movements intact, sclera anicteric, conjunctiva are normal. ENT: nares patent, oropharynx clear without exudates. Moist mucous membranes. NECK: Normal range of motion, supple without lymphadenopathy LUNGS: Breath sounds clear to auscultation bilaterally and equal. No wheezes rales or rhonchi. HEART: Regular rate and rhythm without murmurs ABDOMEN: Soft, nontender, normoactive bowel sounds. No guarding, no rebound. No masses appreciated. EXTREMITIES: Normal range of motion, no pitting or edema. No cyanosis. NEUROLOGICAL: Cranial nerves grossly intact. Normal speech, normal gait. Normal sensory and motor exams. PSYCH: Normal mood, normal affect. SKIN: Multiple linear superficial abrasions over left wrist. Course - Re-evaluation Re-evalutation: Patient has multiple superficial left wrist abrasions that do not require any repair. No neurovascular compromise from her injury. Patient is frequently a patient in the ER and said that she will stay to talk to mental health in the morning due to her increasing suicidal and paranoid thoughts. - Vital Signs Vital signs: Temp Pulse Resp BP Pulse Ox 97.9 F 20 126/75 H 06/24/17 19:02 06/24/17 19:02 06/24/17 19:02 - Laboratory Result Diagrams: 06/24/17 19:10 06/24/17 19:10 Laboratory results interpreted by me: 06/24/17 06/24/17 19:00 19:10 Chloride 110 H Carbon Dioxide 20 L Urine Blood LARGE H Salicylates < 1.0 L Acetaminophen < 10 L Discharge - Discharge Clinical Impression: Suicide and self-inflicted injury Qualifiers: Encounter type: initial encounter Qualified Code(s): X83.8XXA - Intentional self-harm by other specified means, initial encounter Condition: Stable Disposition: PSYCH HOSP/UNIT
[2017-06-24 19:30] LABS: APPEARANCE,URINE CLOUDY; BILIRUBIN,URINE NEGATIVE (NEGATIVE); GLUCOSE, URINE NEGATIVE (NEGATIVE); KETONES,URINE NEGATIVE (NEGATIVE); LEUKOCYTE ESTERASE,URINE NEGATIVE (NEGATIVE); NITRITE,URINE NEGATIVE (NEGATIVE); PROTEIN,URINE NEGATIVE (NEGATIVE); URINE SPECIFIC GRAVITY 1.014; UROBILINOGEN,URINE NEGATIVE mg/dL (<2.0)
[2017-06-24 19:43] LABS: URINE BARBITURATES SCREEN UNCONFIRMED POSITIVE; URINE METHADONE SCREEN NEGATIVE; URINE OPIATES LOW NEGATIVE; URINE PHENCYCLIDINE SCREEN NEGATIVE
--- NOTE | 2017-06-24 19:50 | EKG REPORT ---
SEVERITY:- ABNORMAL ECG - SINUS RHYTHM NONSPECIFIC T ABNORMALITIES, ANTERIOR LEADS : Confirmed by: Lul Collins MD 24-Jun-2017 19:49:30
[2017-06-24 19:58] LABS: ALANINE AMINOTRANSFERASE 48 U/L (9-52); ALBUMIN 4.6 g/dL (3.5-5.0); ALKALINE PHOSPHATASE 53 U/L (38-126); ANION GAP 15 (5-19); ASPARTATE AMINO TRANSFERASE 21 U/L (14-36); BILIRUBIN,DIRECT 0.2 mg/dL (0.0-0.4); BILIRUBIN,TOTAL 0.2 mg/dL (0.2-1.3); BLOOD UREA NITROGEN 11 mg/dL (7-20); CALCIUM 9.4 mg/dL (8.4-10.2); CARBON DIOXIDE 20 mmol/L (22-30); CHLORIDE 110 mmol/L (98-107); CREATININE RESULT 0.68 mg/dL (0.52-1.25); GLUCOSE 96 mg/dL (75-110); POTASSIUM 4.3 mmol/L (3.6-5.0); SODIUM 144.7 mmol/L (137-145); TOTAL PROTEIN 7.3 g/dL (6.3-8.2)
[2017-06-24 20:05] LABS: ALCOHOL < 10 mg/dL (NONE DETECTED)
[2017-06-24] MEDS ORDERED: HYDROXYZINE PAMOATE 25 MG CAPSULE PO PRN (22:00)
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
--- NOTE | 2017-06-25 09:30 | ER Document Report ---
Doctor's Note Notes: 06/25/17 09:29 Rounds: Chart reviewed and patient interviewed. Vital signs are all normal. Lab studies were all normal. Patient appears to be medically stable for transfer or discharge. This is the 14th visit to this emergency department by this patient in this calendar year of 2017. Patient reportedly has a court date this morning at 9:00. Mental health believes the patient can be discharged and followed as an outpatient at [facility]. Kalani Garcia MD
[2017-06-25 09:32] VITALS: BP 106/69
== END 2017-06-25 09:45 | disposition home or self-care (01) ==
LOC: ER 18:28
DX: F60.3 Borderline personality disorder (principal); F31.9 Bipolar disorder, unspecified; S60.812A Abrasion of left wrist, initial encounter; X78.9XXA Intentional self-harm by unspecified sharp object, initial encounter; I10 Essential (primary) hypertension; Z88.6 Allergy status to analgesic agent; Z91.013 Allergy to seafood; Z98.51 Tubal ligation status
CPT/HCPCS: 93005; 99285; 36415; 80307 ×4; 84703; 85025; 80053; 81001; 93010; J3490

== ENCOUNTER 2017-06-25 12:00 | Emergency (ER) | payer MEDICAID ==
[2017-06-25 12:15] VITALS: BP 115/74
--- NOTE | 2017-06-25 14:38 | ER Document Report ---
ED Psych Disorder / Suicide <RADHA MIRANDA - Last Filed: 06/25/17 15:43> - General TRAVEL OUTSIDE OF THE [place] IN LAST 30 DAYS: No <MAC OSWALD - Last Filed: 06/25/17 19:54> - General Chief Complaint: Psych Problem Stated Complaint: PSYCH EVAL Time Seen by Provider: 06/25/17 14:17 Notes: Patient returns to the emergency department complaining of still feeling suicidal. She was seen here last night for the same complaint and had cut her left wrist and was thinking of taking an overdose of pills. She was kept through the night and evaluated this morning by mental health and felt to be able to be discharged for outpatient follow-up. She went to her local counselor who think she needs to be committed and did the IVC paperwork for the patient. They sent her back here by police. Patient says that she still feels the same way and think she will either take an overdose or injure herself in some other way. History of bipolar disorder. On lithium, gabapentin, and Trileptal. (MAC OSWALD) - Related Data Allergies/Adverse Reactions: alprazolam [From Xanax] Allergy (Severe, Verified 06/25/17 12:14) CHEMICAL REACTION RESULTING IN SEIZURE amoxicillin [Amoxicillin] Allergy (Severe, Verified 06/25/17 12:14) Difficulty breathing Amphetamine Aspartate * [From Adderall] Allergy (Severe, Verified 06/25/17 12:14 ) Anaphylaxis amphetamine sulfate [From Adderall] Allergy (Severe, Verified 06/25/17 12:14) Anaphylaxis bupropion HCl [From Wellbutrin] Allergy (Severe, Verified 06/25/17 12:14) Anaphylaxis cephalexin [Cephalexin] Allergy (Severe, Verified 06/25/17 12:14) Anaphylaxis dextroamphetamine [From Adderall] Allergy (Severe, Verified 06/25/17 12:14) Anaphylaxis latex [Latex] Allergy (Severe, Verified 06/25/17 12:14) Anaphylaxis naproxen [Naproxen] Allergy (Severe, Verified 06/25/17 12:14) Anaphylaxis quetiapine fumarate [From Seroquel] Allergy (Severe, Verified 06/25/17 12:14) Anaphylaxis sertraline HCl [From Zoloft] Allergy (Severe, Verified 06/25/17 12:14) Anaphylaxis shellfish derived [Shellfish Derived] Allergy (Severe, Verified 06/25/17 12:14) Anaphylaxis tramadol [Tramadol] Allergy (Severe, Verified 06/25/17 12:14) Anaphylaxis ziprasidone HCl [From Geodon] Allergy (Severe, Verified 06/25/17 12:14) Anaphylaxis ziprasidone mesylate [From Geodon] Allergy (Severe, Verified 06/25/17 12:14) Anaphylaxis aluminum hydroxide [From Maalox] Allergy (Verified 06/25/17 12:14) Anaphylaxis calcium carbonate [From Maalox] Allergy (Verified 06/25/17 12:14) Anaphylaxis diphenhydramine [From Benadryl Allergy] Allergy (Verified 06/25/17 12:14) ibuprofen [From Motrin] Allergy (Verified 06/25/17 12:14) ketorolac [From Toradol] Allergy (Verified 06/25/17 12:14) Magnesium Hydroxide [From Maalox] Allergy (Verified 06/25/17 12:14) Anaphylaxis simethicone [From Maalox] Allergy (Verified 06/25/17 12:14) Anaphylaxis seafood Allergy (Uncoded 06/25/17 12:14) Past Medical History - General Information source: Patient, Relative - Aunt Geraldine, [facility] Records - Social History Smoking Status: Unknown if Ever Smoked <RADHA MIRANDA - Last Filed: 06/25/17 15:43> - Social History Family History: Arthritis, CAD, CVA, DM, Hyperlipidemia, Hypertension, Malignancy, Thyroid Disfunction Patient has suicidal ideation: Yes Patient has homicidal ideation: No - Past Medical History Cardiac Medical History: Reports: Hx Hypertension Pulmonary Medical History: Reports: Hx Asthma, Hx Bronchitis, Hx Pneumonia Neurological Medical History: Reports: Hx Seizures Renal/ Medical History: Reports: Hx Ovarian Cysts GI Medical History: Reports: Hx Gastroesophageal Reflux Disease Musculoskeltal Medical History: Reports Hx Arthritis, Reports Hx Musculoskeletal Deformity, Reports Hx Musculoskeletal Trauma Psychiatric Medical History: Reports: Hx Anxiety, Hx Attention Deficit Hyperactivity Disorder, Hx Bipolar Disorder, Hx Borderline Personality Disorder , Hx Depression, Hx Post Traumatic Stress Disorder Traumatic Medical History: Reports: Hx Fractures - Ankle wrist shoulder and ribs Past Surgical History: Reports: Hx Appendectomy, Hx Section, Hx Oral Surgery, Hx Tonsillectomy, Hx Tubal Ligation - Immunizations Immunizations up to date: Yes Hx Diphtheria, Pertussis, Tetanus Vaccination: Yes - [id number] Hx Pneumococcal Vaccination: 08/13/13 <MAC OSWALD - Last Filed: 06/25/17 19:54> Review of Systems - Review of Systems Constitutional: denies: Fever Cardiovascular: denies: Chest pain, Dizziness Respiratory: denies: Short of breath Gastrointestinal: denies: Abdominal pain, Diarrhea, Vomiting Musculoskeletal: No symptoms reported Skin: Other - Well healing self-inflicted cuts to the left volar wrist and forearm Neurological/Psychological: Anxiety, Suicidal ideation. denies: Confusion, Depression <MAC OSWALD - Last Filed: 06/25/17 19:54> Physical Exam <RADHA MIRANDA - Last Filed: 06/25/17 15:43> - Vital signs Interpretation: Normal <MAC OSWALD - Last Filed: 06/25/17 19:54> - Vital signs Vitals: Temp Pulse Resp BP Pulse Ox 98.3 F 65 18 115/74 99 06/25/17 12:07 06/25/17 12:07 06/25/17 12:07 06/25/17 12:07 06/25/17 12:07 - Notes Notes: PHYSICAL EXAMINATION: GENERAL: Well-appearing, very loudly complaining about having been sent home and now being sent back to our facility today. HEAD: Atraumatic, normocephalic. EYES: Pupils equal round and reactive to light, extraocular movements intact. ENT: oropharynx clear without exudates. Moist mucous membranes. NECK: Normal range of motion, supple. LUNGS: Breath sounds clear and equal bilaterally. HEART: Regular rate and rhythm without murmurs. ABDOMEN: Soft, nontender. No guarding or rebound. BACK: No tenderness throughout entire back. EXTREMITIES: Normal range of motion without pain. Left forearm bandaged where patient's wounds are located. NEUROLOGICAL: Normal speech, normal gait. Normal sensory, motor, and reflex exams. Awake, alert, and oriented x3. Cranial nerves normal. PSYCH: anxious, upset, demanding, confrontational. SKIN: Warm, dry, no rashes. (MAC OSWALD) Course <RADHA MIRANDA - Last Filed: 06/25/17 15:43> <MAC OSWALD - Last Filed: 06/25/17 19:54> - Re-evaluation Re-evalutation: Patient was reevaluated by mental health and they concluded again the patient was stable to be discharged and treated as an outpatient. IVC paperwork rescinded. (MAC OSWALD) - Vital Signs Vital signs: Temp Pulse Resp BP Pulse Ox 98.3 F 65 18 115/74 99 06/25/17 12:07 06/25/17 12:07 06/25/17 12:07 06/25/17 12:07 06/25/17 12:07 Discharge <RADHA MIRANDA - Last Filed: 06/25/17 15:43> <MAC OSWALD - Last Filed: 06/25/17 19:54> - Discharge Clinical Impression: Borderline personality disorder in adult, Bipolar 1 disorder Condition: Stable Disposition: HOME, SELF-CARE Additional Instructions: Borderline Personality Disorder Bipolar Disorder Please engage in outpatient therapy to learn appropriate coping skills. You have been provided a list of resources to assist you in following up, to include mobile crisis which is a service available to you 05/03 should you feel you need to cut. Referrals: [facility] [Provider Group] - Follow up in 3-5 days
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
== END 2017-06-25 16:10 | disposition home or self-care (01) ==
LOC: ER 12:00
DX: F60.3 Borderline personality disorder (principal); F31.9 Bipolar disorder, unspecified; R45.851 Suicidal ideations; I10 Essential (primary) hypertension; Z98.51 Tubal ligation status; Z88.0 Allergy status to penicillin; Z91.040 Latex allergy status; Z91.013 Allergy to seafood
CPT/HCPCS: 99284

== ENCOUNTER → 2017-10-11 | Outpatient (CLI) | payer MEDICAID ==
--- NOTE | 2017-10-11 12:47 | RADIOLOGY REPORT (SQ) ---
EXAM DESCRIPTION: CHEST PA/LAT COMPLETED DATE/TIME: 10/11/2017 12:19 pm REASON FOR STUDY: BRONCHITIS COMPARISON: 04/30/2017. EXAM PARAMETERS: NUMBER OF VIEWS: two views TECHNIQUE: Digital Frontal and Lateral radiographic views of the chest acquired. RADIATION DOSE: NA LIMITATIONS: none FINDINGS: LUNGS AND PLEURA: No opacities, masses or pneumothorax. No pleural effusion. MEDIASTINUM AND HILAR STRUCTURES: No masses or contour abnormalities. HEART AND VASCULAR STRUCTURES: Heart normal size. No evidence for failure. BONES: No acute findings. HARDWARE: None in the chest. OTHER: No other significant finding. IMPRESSION: NO SIGNIFICANT RADIOGRAPHIC FINDING IN THE CHEST. TECHNICAL DOCUMENTATION: JOB ID: [id number] [employer]- All Rights Reserved Reading location - IP/workstation name: [email or web address]
--- NOTE | 2017-10-11 12:47 | RADIOLOGY REPORT (SQ) ---
EXAM DESCRIPTION: FOOT RIGHT 2 VIEWS COMPLETED DATE/TIME: 10/11/2017 12:03 pm REASON FOR STUDY: RIGHT FOOT INJURY J40 BRONCHITIS, NOT SPECIFIED ACUTE OR CHRONIC S99.921A UNS PECIFIED INJURY OF RIGHT FOOT, INITIAL ENCOUNTER COMPARISON: 06/08/2017. NUMBER OF VIEWS: Three views. TECHNIQUE: AP, lateral and oblique radiographic images acquired of the right foot. LIMITATIONS: None. FINDINGS: MINERALIZATION: Normal. BONES: No acute fracture or dislocation. No worrisome bone lesions. JOINTS: No effusions. SOFT TISSUES: No soft tissue swelling. No foreign body. OTHER: No other significant finding. IMPRESSION: NEGATIVE STUDY OF THE RIGHT FOOT. NO RADIOGRAPHIC EVIDENCE OF ACUTE INJURY. TECHNICAL DOCUMENTATION: JOB ID: [id number] [employer]- All Rights Reserved Reading location - IP/workstation name: [email or web address]
== END ==
LOC: RAD 11:29
PROVIDERS: ATTEND Physician Assistant
DX: S99.921A Unspecified injury of right foot, initial encounter (principal); J40 Bronchitis, not specified as acute or chronic; X58.XXXA Exposure to other specified factors, initial encounter
CPT/HCPCS: 71046

== ENCOUNTER 2017-10-14 21:15 | Emergency (ER) | payer MEDICAID ==
--- NOTE | 2017-10-14 22:08 | RADIOLOGY REPORT (SQ) ---
EXAM DESCRIPTION: CHEST PA/LAT COMPLETED DATE/TIME: 10/14/2017 9:58 pm REASON FOR STUDY: cough x2 weeks COMPARISON: None. EXAM PARAMETERS: NUMBER OF VIEWS: two views TECHNIQUE: Digital Frontal and Lateral radiographic views of the chest acquired. RADIATION DOSE: NA LIMITATIONS: none FINDINGS: LUNGS AND PLEURA: No opacities, masses or pneumothorax. No pleural effusion. MEDIASTINUM AND HILAR STRUCTURES: No masses or contour abnormalities. HEART AND VASCULAR STRUCTURES: Heart normal size. No evidence for failure. BONES: No acute findings. HARDWARE: None in the chest. OTHER: No other significant finding. IMPRESSION: NO SIGNIFICANT RADIOGRAPHIC FINDING IN THE CHEST. TECHNICAL DOCUMENTATION: JOB ID: [id number] [employer]- All Rights Reserved Reading location - IP/workstation name: [email or web address]
[2017-10-14] MEDS ORDERED: RACEPINEPHRINE HCL 2.25% NEB 0.5 ML AMPUL NEB ONE (22:43)
[2017-10-14] MEDS ORDERED: DEXAMETHASONE SOD PHOS INJ 10 MG/1 ML VIAL IM ONE (22:43)
--- NOTE | 2017-10-14 22:47 | ER Document Report ---
HPI - HPI Pain Level: 4 Context: Patient is a 27-year-old female presents emergency department with a chief complaint of cough, sore throat, shortness of breath. Patient states that she was diagnosed with bronchitis approximately 2 2 weeks ago and put on azithromycin and prednisone and given a ProAir inhaler for her asthma. She followed up with her primary on Sunday and of this week and was diagnosed with bronchitis and tracheitis on those 2 separate visits. She states that she comes to the ER today due to family concern that she has underlying pneumonia. She denies any fevers, orthopnea dyspnea on exertion, chest pain, productive cough. - CONSTITUTIONAL Constitutional: REPORTS: Fever, Chills - EENT EENT: REPORTS: Sore Throat, Ear Pain. DENIES: Eye problems - NEURO Neurology: DENIES: Headache, Weakness, Vision blurred, Dizzinesss / Vertigo - CARDIOVASCULAR Cardiovascular: REPORTS: Chest pain - RESPIRATORY Respiratory: REPORTS: Trouble Breathing, Coughing - GASTROINTESTINAL Gastrointestinal: DENIES: Abdominal Pain - URINARY Urinary: DENIES: Dysuria, Urgency, Frequency - REPRODUCTIVE Reproductive: REPORTS: : - MUSCULOSKELETAL Musculoskeletal: DENIES: Extremity pain Past Medical History - Social History Smoking Status: Current Every Day Smoker Family History: Arthritis, CAD, CVA, DM, Hyperlipidemia, Hypertension, Malignancy, Thyroid Disfunction Patient has suicidal ideation: No Patient has homicidal ideation: No - Past Medical History Cardiac Medical History: Reports: Hx Hypertension Pulmonary Medical History: Reports: Hx Asthma, Hx Bronchitis, Hx Pneumonia Neurological Medical History: Reports: Hx Seizures Renal/ Medical History: Reports: Hx Ovarian Cysts. Denies: Hx Peritoneal Dialysis GI Medical History: Reports: Hx Gastroesophageal Reflux Disease Musculoskeltal Medical History: Reports Hx Arthritis, Reports Hx Musculoskeletal Deformity, Reports Hx Musculoskeletal Trauma Psychiatric Medical History: Reports: Hx Anxiety, Hx Attention Deficit Hyperactivity Disorder, Hx Bipolar Disorder, Hx Borderline Personality Disorder , Hx Depression, Hx Post Traumatic Stress Disorder Traumatic Medical History: Reports: Hx Fractures - Ankle wrist shoulder and ribs Past Surgical History: Reports: Hx Appendectomy, Hx Section, Hx Oral Surgery, Hx Tonsillectomy, Hx Tubal Ligation - Immunizations Immunizations up to date: Yes Hx Diphtheria, Pertussis, Tetanus Vaccination: Yes - [id number] Hx Pneumococcal Vaccination: 08/13/13 Vertical Provider Document - CONSTITUTIONAL Agree With Documented VS: Yes Notes: PHYSICAL EXAM GENERAL: Alert, interacts well. HEENT: NCAT, pale conjunctiva, extraocular movements intact, pupils PERRL. external ear normal, no evidence of external auditory canal tenderness, blood/ drainage, cerumen impaction, TM intact without evidence of effusion, bulging, injection, MMM, Uvula midline. Airway patent. No evidence of tonsillar enlargement, peritonsillar abscess, retropharyngeal abscess. Audible moderate/ intermittent inspiratory stridor but speaking in full sentences without any shortness of breath, dyspnea. LUNGS: Clear to auscultation bilaterally, no wheezes, rales, or rhonchi. No respiratory distress. HEART: Regular rate and rhythm. No murmurs, gallops, or rubs. ABDOMEN: Soft, nondistended, nontender. No guarding, rebound, or rigidity.. Bowel sounds present in all 4 quadrants. EXTREMITIES: Moves all 4 extremities spontaneously. No edema, radial and dorsalis pedis pulses 2/4 bilaterally. No cyanosis. NEUROLOGICAL: Alert and oriented x4. Normal speech. PSYCH: Normal affect, normal mood. SKIN: Warm, dry, normal turgor. No rashes or lesions noted. - INFECTION CONTROL TRAVEL OUTSIDE OF THE [place] IN LAST 30 DAYS: No - RESPIRATORY O2 Sat by Pulse Oximetry: 100 Course - Re-evaluation Re-evalutation: 10/15/17 02:12 Patient is a 27-year-old female who is hemodynamically stable, no acute distress and afebrile. Patient with intermittent mild stridor but able to speak in complete sentences without tachypnea. Soft tissue the neck shows evidence of mild subglottic airway swelling without any evidence of acute tracheal narrowing. No evidence of epiglottitis. Rapid strep is negative without any evidence of a retropharyngeal or peritonsillar abscess. Chest x- ray stable without any evidence of pneumonia, cardiopulmonary process. Patient' s O2 saturations have remained at 99-100%. Patient's ambulatory pulse ox multiple times throughout the department did not drop below 99%. Patient without any evidence of respiratory distress, airway compromise. Presentation is consistent with her previous diagnosis of a tracheobronchitis. We will send her home on p.o. steroids. Patient has established follow-up with her primary care doctor later today. - Vital Signs Vital signs: Temp Pulse Resp BP Pulse Ox 98.5 F 84 22 H 131/89 H 100 10/14/17 21:49 10/14/17 21:49 10/14/17 21:49 10/14/17 21:49 10/14/17 21:49 Discharge - Discharge Clinical Impression: Tracheobronchitis Condition: Good Disposition: HOME, SELF-CARE Additional Instructions: Your presentation today is consistent with inflammation of your trachea. This is likely due to a viral cause. Please continue to take your inhalers as needed for shortness of breath, otherwise take the steroids as prescribed. Please follow-up with your primary care doctor in 3-5 days and the ear nose and throat doctor listed on your paperwork Prescriptions: Methylprednisolone [Medrol Dosepack (4 mg/Tab) 21 Tab/Dosepak] 4 mg PO ASDIR PRN #[email or web address] PRN Reason: Referrals: YOU WHITMAN MD [Primary Care Provider] - Follow up in 3-5 days TAMMIE ADAMES DO [ASSOCIATE] - Follow up in 3-5 days
[2017-10-14] MEDS: IPRATROPIUM BROMIDE 0.02% NEB 0.5 MG/2.5 ML AMPUL NEB PRN ×2 (23:15→23:38)
[2017-10-14] MEDS ORDERED: ACETAMINOPHEN 325 MG TABLET PO ONE (23:26)
--- NOTE | 2017-10-15 01:23 | RADIOLOGY REPORT (SQ) ---
EXAM DESCRIPTION: SOFT TISSUE NECK CLINICAL HISTORY: 27 years, Female, inspiratory stridor COMPARISON: None. NUMBER OF VIEWS: 2 LIMITATIONS: None. FINDINGS: Mild nonspecific subglottic narrowing. No prevertebral soft tissue swelling. Normal epiglottis. Patent airway and nasopharynx. No radiopaque foreign body. Minimal anterior vertebral height loss at C5 and C6. IMPRESSION: Mild nonspecific subglottic narrowing.
[2017-10-15 01:46] VITALS: BP 118/97
== END 2017-10-15 01:46 | disposition home or self-care (01) ==
LOC: ER 21:15
DX: J40 Bronchitis, not specified as acute or chronic (principal); J02.9 Acute pharyngitis, unspecified; R07.9 Chest pain, unspecified; I10 Essential (primary) hypertension
CPT/HCPCS: 94640 ×2; 99283; 96372; 87070; 87880; 71046; 70360; J3490 ×3; J1100

== ENCOUNTER 2017-10-17 01:41 | Emergency (ER) | payer MEDICAID ==
[2017-10-17] MEDS ORDERED: HALOPERIDOL LACTATE INJ 5 MG/1 ML VIAL IM ONE (01:44)
[2017-10-17 01:50] VITALS: BP 130/83
--- NOTE | 2017-10-17 01:54 | ER Document Report ---
ED General - General Stated Complaint: GENERAL WEAKNESS Notes: Patient is a 27 year old female who presents to the emergency department multiple complaints. Her main concern is that she is having generalized tingling as well as feeling weak all over. Patient states the symptoms started intermittently throughout the day today and became more persistent tonight. She denies any areas of focal weakness, numbness, denies any headache, neck pain or altered mental status. She has received 6 doses of steroids for concerns of a possible bronchitis and states that this may have worsened or triggered her symptoms. She has a history of similar symptoms in the past when she has become anxious. She has not seen a primary care doctor regarding today' s concerns. TRAVEL OUTSIDE OF THE [place] IN LAST 30 DAYS: No - Related Data Allergies/Adverse Reactions: alprazolam [From Xanax] Allergy (Severe, Verified 10/14/17 21:17) CHEMICAL REACTION RESULTING IN SEIZURE amoxicillin [Amoxicillin] Allergy (Severe, Verified 10/14/17 21:17) Difficulty breathing Amphetamine Aspartate * [From Adderall] Allergy (Severe, Verified 10/14/17 21:17 ) Anaphylaxis amphetamine sulfate [From Adderall] Allergy (Severe, Verified 10/14/17 21:17) Anaphylaxis bupropion HCl [From Wellbutrin] Allergy (Severe, Verified 10/14/17 21:17) Anaphylaxis cephalexin [Cephalexin] Allergy (Severe, Verified 10/14/17 21:17) Anaphylaxis dextroamphetamine [From Adderall] Allergy (Severe, Verified 10/14/17 21:17) Anaphylaxis latex [Latex] Allergy (Severe, Verified 10/14/17 21:17) Anaphylaxis naproxen [Naproxen] Allergy (Severe, Verified 10/14/17 21:17) Anaphylaxis quetiapine fumarate [From Seroquel] Allergy (Severe, Verified 10/14/17 21:17) Anaphylaxis sertraline HCl [From Zoloft] Allergy (Severe, Verified 10/14/17 21:17) Anaphylaxis shellfish derived [Shellfish Derived] Allergy (Severe, Verified 10/14/17 21:17) Anaphylaxis tramadol [Tramadol] Allergy (Severe, Verified 10/14/17 21:17) Anaphylaxis ziprasidone HCl [From Geodon] Allergy (Severe, Verified 10/14/17 21:17) Anaphylaxis ziprasidone mesylate [From Geodon] Allergy (Severe, Verified 10/14/17 21:17) Anaphylaxis aluminum hydroxide [From Maalox] Allergy (Verified 10/14/17 21:17) Anaphylaxis calcium carbonate [From Maalox] Allergy (Verified 10/14/17 21:17) Anaphylaxis diphenhydramine [From Benadryl Allergy] Allergy (Verified 10/14/17 21:17) ibuprofen [From Motrin] Allergy (Verified 10/14/17 21:17) ketorolac [From Toradol] Allergy (Verified 10/14/17 21:17) Magnesium Hydroxide [From Maalox] Allergy (Verified 10/14/17 21:17) Anaphylaxis simethicone [From Maalox] Allergy (Verified 10/14/17 21:17) Anaphylaxis seafood Allergy (Uncoded 10/14/17 21:17) Past Medical History - General Information source: Patient - Social History Smoking Status: Never Smoker Frequency of alcohol use: None Drug Abuse: None Lives with: Spouse/Significant other Family History: Arthritis, CAD, CVA, DM, Hyperlipidemia, Hypertension, Malignancy, Thyroid Disfunction - Past Medical History Cardiac Medical History: Reports: Hx Hypertension Pulmonary Medical History: Reports: Hx Asthma, Hx Bronchitis, Hx Pneumonia Neurological Medical History: Reports: Hx Seizures Renal/ Medical History: Reports: Hx Ovarian Cysts. Denies: Hx Peritoneal Dialysis GI Medical History: Reports: Hx Gastroesophageal Reflux Disease Musculoskeltal Medical History: Reports Hx Arthritis, Reports Hx Musculoskeletal Deformity, Reports Hx Musculoskeletal Trauma Psychiatric Medical History: Reports: Hx Anxiety, Hx Attention Deficit Hyperactivity Disorder, Hx Bipolar Disorder, Hx Borderline Personality Disorder , Hx Depression, Hx Post Traumatic Stress Disorder Traumatic Medical History: Reports: Hx Fractures - Ankle wrist shoulder and ribs Past Surgical History: Reports: Hx Appendectomy, Hx Section, Hx Oral Surgery, Hx Tonsillectomy, Hx Tubal Ligation - Immunizations Immunizations up to date: Yes Hx Diphtheria, Pertussis, Tetanus Vaccination: Yes - [id number] Hx Pneumococcal Vaccination: 08/13/13 Review of Systems - Review of Systems Notes: Constitutional: Negative for fever. HENT: Negative for sore throat. Eyes: Negative for visual changes. Cardiovascular: Negative for chest pain. Respiratory: Negative for shortness of breath. Gastrointestinal: Negative for abdominal pain, vomiting or diarrhea. Genitourinary: Negative for dysuria. Musculoskeletal: Negative for back pain. Skin: Negative for rash. Neurological: Positive for generalized tingling and generalized weakness 10 point ROS negative except as marked above and in HPI. Physical Exam - Vital signs Vitals: Temp Pulse Resp BP Pulse Ox 97.4 F 90 18 130/83 H 99 10/17/17 01:46 10/17/17 01:46 10/17/17 01:46 10/17/17 01:46 10/17/17 01:46 Interpretation: Normal Notes: PHYSICAL EXAMINATION: GENERAL: Well-appearing, well-nourished and in no acute distress. HEAD: Atraumatic, normocephalic. EYES: Pupils equal round and reactive to light, extraocular movements intact, sclera anicteric, conjunctiva are normal. ENT: nares patent, oropharynx clear without exudates. Moist mucous membranes. NECK: Normal range of motion, supple without lymphadenopathy LUNGS: Breath sounds clear to auscultation bilaterally and equal. No wheezes rales or rhonchi. HEART: Regular rate and rhythm without murmurs ABDOMEN: Soft, nontender, normoactive bowel sounds. No guarding, no rebound. No masses appreciated. EXTREMITIES: Normal range of motion, no pitting or edema. No cyanosis. NEUROLOGICAL: Normal exam Face symmetric. Tongue protrudes midline. Extraocular motions intact. Pupils are 2 mm and equally reactive. Normal speech, normal gait. 5 out of 5 strength in both the distal and proximal upper and lower extremities bilaterally. Sensation is grossly intact throughout. Finger to nose testing normal. Pronator drift normal. PSYCH: Normal mood, normal affect. SKIN: Warm, Dry, normal turgor, no rashes or lesions noted. Course - Re-evaluation Re-evalutation: 10/17/17 01:49 Patient presents with multiple vague complaints that did not appear to be concerning for any acute life-threatening pathology. Vitals are within normal limits at triage and at time of discharge. Physical examination is unremarkable. Patient has tolerated oral intake without difficulty. Patient was not noted to be in distress at any point during their ER visit. At this time, based on the reassuring evaluation, I do not suspect an acute [place], pulmonary embolus, aortic dissection, acute intra-abdominal pathology, stroke, or sepsis. Patient's symptoms seem to be most consistent with somatization. Will discharge with return precautions and follow-up recommendations. Verbal discharge instructions given a the bedside and opportunity for questions given. Medication warnings reviewed. Patient is in agreement with this plan and has verbalized understanding of return precautions and the need for primary care follow-up in the next 24-72 hours. - Vital Signs Vital signs: Temp Pulse Resp BP Pulse Ox 97.4 F 90 18 130/83 H 99 10/17/17 01:46 10/17/17 01:46 10/17/17 01:46 10/17/17 01:46 10/17/17 01:46 Discharge - Discharge Clinical Impression: Tingling sensation, Generalized weakness, Persistent cough Condition: Good Disposition: HOME, SELF-CARE Additional Instructions: Please return to the emergency room immediately if you experience any concerning symptoms including high fevers, severe headache, chest pain, difficulty breathing, abdominal pain, slurred speech, numbness or weakness in your arms or legs, or any other symptom that concerns you.
[2017-10-17] MEDS ORDERED: CHLORPROMAZINE HCL INJ 25 MG/1 ML AMPULE IM ONE (01:59)
== END 2017-10-17 02:37 | disposition home or self-care (01) ==
LOC: ER 01:41
DX: R53.1 Weakness (principal); R20.0 Anesthesia of skin; R05 Cough; F41.9 Anxiety disorder, unspecified
CPT/HCPCS: 99284; 96372; J3230

== ENCOUNTER 2017-10-22 01:05 | Emergency (ER) | payer MEDICAID ==
[2017-10-22 01:13] VITALS: BP 109/74
--- NOTE | 2017-10-22 01:28 | ER Document Report ---
ED General - General Chief Complaint: Hand Injury Stated Complaint: HAND INJURY Time Seen by Provider: 10/22/17 01:22 Mode of Arrival: Ambulatory Information source: Patient Notes: 27-year-old female presents with complaints of right hand pain after punching a bathtub yesterday. Patient states she has difficulty moving her first and second digits secondary to pain TRAVEL OUTSIDE OF THE [place] IN LAST 30 DAYS: No - HPI Onset: Yesterday Onset/Duration: Sudden Quality of pain: Achy Severity: Mild Pain Level: 1 Associated symptoms: Body/muscle aches Exacerbated by: Movement Relieved by: Denies Similar symptoms previously: No Recently seen / treated by doctor: Yes - Related Data Allergies/Adverse Reactions: alprazolam [From Xanax] Allergy (Severe, Verified 10/14/17 21:17) CHEMICAL REACTION RESULTING IN SEIZURE amoxicillin [Amoxicillin] Allergy (Severe, Verified 10/14/17 21:17) Difficulty breathing Amphetamine Aspartate * [From Adderall] Allergy (Severe, Verified 10/14/17 21:17 ) Anaphylaxis amphetamine sulfate [From Adderall] Allergy (Severe, Verified 10/14/17 21:17) Anaphylaxis bupropion HCl [From Wellbutrin] Allergy (Severe, Verified 10/14/17 21:17) Anaphylaxis cephalexin [Cephalexin] Allergy (Severe, Verified 10/14/17 21:17) Anaphylaxis dextroamphetamine [From Adderall] Allergy (Severe, Verified 10/14/17 21:17) Anaphylaxis latex [Latex] Allergy (Severe, Verified 10/14/17 21:17) Anaphylaxis naproxen [Naproxen] Allergy (Severe, Verified 10/14/17 21:17) Anaphylaxis quetiapine fumarate [From Seroquel] Allergy (Severe, Verified 10/14/17 21:17) Anaphylaxis sertraline HCl [From Zoloft] Allergy (Severe, Verified 10/14/17 21:17) Anaphylaxis shellfish derived [Shellfish Derived] Allergy (Severe, Verified 10/14/17 21:17) Anaphylaxis tramadol [Tramadol] Allergy (Severe, Verified 10/14/17 21:17) Anaphylaxis ziprasidone HCl [From Geodon] Allergy (Severe, Verified 10/14/17 21:17) Anaphylaxis ziprasidone mesylate [From Geodon] Allergy (Severe, Verified 10/14/17 21:17) Anaphylaxis aluminum hydroxide [From Maalox] Allergy (Verified 10/14/17 21:17) Anaphylaxis calcium carbonate [From Maalox] Allergy (Verified 10/14/17 21:17) Anaphylaxis diphenhydramine [From Benadryl Allergy] Allergy (Verified 10/14/17 21:17) ibuprofen [From Motrin] Allergy (Verified 10/14/17 21:17) ketorolac [From Toradol] Allergy (Verified 10/14/17 21:17) Magnesium Hydroxide [From Maalox] Allergy (Verified 10/14/17 21:17) Anaphylaxis simethicone [From Maalox] Allergy (Verified 10/14/17 21:17) Anaphylaxis seafood Allergy (Uncoded 10/14/17 21:17) Past Medical History - Social History Smoking Status: Current Every Day Smoker Cigarette use (# per day): Yes Chew tobacco use (# tins/day): No Smoking Education Provided: No Family History: Arthritis, CAD, CVA, DM, Hyperlipidemia, Hypertension, Malignancy, Thyroid Disfunction - Past Medical History Cardiac Medical History: Reports: Hx Hypertension Pulmonary Medical History: Reports: Hx Asthma, Hx Bronchitis, Hx Pneumonia Neurological Medical History: Reports: Hx Seizures Renal/ Medical History: Reports: Hx Ovarian Cysts. Denies: Hx Peritoneal Dialysis GI Medical History: Reports: Hx Gastroesophageal Reflux Disease Musculoskeltal Medical History: Reports Hx Arthritis, Reports Hx Musculoskeletal Deformity, Reports Hx Musculoskeletal Trauma Psychiatric Medical History: Reports: Hx Anxiety, Hx Attention Deficit Hyperactivity Disorder, Hx Bipolar Disorder, Hx Borderline Personality Disorder , Hx Depression, Hx Post Traumatic Stress Disorder Traumatic Medical History: Reports: Hx Fractures - Ankle wrist shoulder and ribs Past Surgical History: Reports: Hx Appendectomy, Hx Section, Hx Oral Surgery, Hx Tonsillectomy, Hx Tubal Ligation - Immunizations Immunizations up to date: Yes Hx Diphtheria, Pertussis, Tetanus Vaccination: Yes - [id number] Hx Pneumococcal Vaccination: 08/13/13 Review of Systems - Review of Systems Notes: REVIEW OF SYSTEMS: CONSTITUTIONAL : Denies fever, chills, or sweats. Denies recent illness. EENT: Denies eye, ear, throat, or mouth pain or symptoms. Denies nasal or sinus congestion or discharge. Denies throat, tongue, or mouth swelling or difficulty swallowing. CARDIOVASCULAR: Denies chest pain. Denies palpitations or racing or irregular heart beat. Denies ankle edema. RESPIRATORY: Denies cough, cold, or chest congestion. Denies shortness of breath, difficulty breathing, or wheezing. GASTROINTESTINAL: Denies abdominal pain or distention. Denies nausea, vomiting , or diarrhea. Denies blood in vomitus, stools, or per rectum. Denies black, tarry stools. Denies constipation. GENITOURINARY: Denies difficulty urinating, painful urination, burning, frequency, blood in urine, or discharge. FEMALE GENITOURINARY: Denies vaginal bleeding, heavy or abnormal periods, irregular periods. Denies vaginal discharge or odor. MUSCULOSKELETAL: Admits to pain of the first and second digits SKIN: Denies rash, lesions or sores. HEMATOLOGIC : Denies easy bruising or bleeding. LYMPHATIC: Denies swollen, enlarged glands. NEUROLOGICAL: Denies confusion or altered mental status. Denies passing out or loss of consciousness. Denies dizziness or lightheadedness. Denies headache. Denies weakness or paralysis or loss of use of either side. Denies problems with gait or speech. Denies sensory loss, numbness, or tingling. Denies seizures. PSYCHIATRIC: Denies anxiety or stress. Denies depression, suicidal ideation, or homicidal ideation. ALL OTHER SYSTEMS REVIEWED AND NEGATIVE. PHYSICAL EXAMINATION: GENERAL: Well-appearing, well-nourished and in no acute distress. HEAD: Atraumatic, normocephalic. EYES: Pupils equal round and reactive to light, extraocular movements intact, conjunctiva are normal. ENT: Nares patent, oropharynx clear without exudates. Moist mucous membranes. NECK: Normal range of motion, supple without lymphadenopathy LUNGS: Breath sounds clear to auscultation bilaterally and equal. No wheezes rales or rhonchi. HEART: Regular rate and rhythm without murmurs ABDOMEN: Soft, nontender, nondistended abdomen. No guarding, no rebound. No masses appreciated. Female : deferred Musculoskeletal: Normal range of motion, no pitting or edema. No cyanosis. Mild ecchymosis of the first digit on the right hand NEUROLOGICAL: Cranial nerves grossly intact. Normal speech, normal gait. Normal sensory, motor exams PSYCH: Normal mood, normal affect. SKIN: Warm, Dry, normal turgor, no rashes or lesions noted. Dictation was performed using Dragon voice recognition software Physical Exam - Vital signs Vitals: Temp Pulse Resp BP Pulse Ox 98.3 F 77 16 109/74 98 10/22/17 01:11 10/22/17 01:11 10/22/17 01:11 10/22/17 01:11 10/22/17 01:11 Course - Re-evaluation Re-evalutation: 10/22/17 01:28 Patient immediately taken to x-ray by myself, I have low suspicion for fracture , patient notes she has anger issues and punched a tub 10/22/17 01:58 X-ray noted no acute fracture, patient otherwise is stable has no snuffbox tenderness and is otherwise well-appearing I am limited by how I can treat her as she has anaphylaxis to almost every medication that would treat pain Patient will be given heating pad for comfort After performing a Medical Screening Examination, I estimate there is LOW risk for INTRACRANIAL HEMORRHAGE, UNSTABLE SPINE FRACTURE, CENTRAL CORD SYNDROME, CAUDA EQUINA, THORACIC AORTIC DISSECTION, PNEUMOTHORAX, PERFORATED BOWEL, RUPTURED ABDOMINAL AORTIC ANEURYSM, ACUTE TENDON RUPTURE, COMPARTMENT SYNDROME, or OPEN FRACTURE, thus I consider the discharge disposition reasonable. Also, there is no evidence or peritonitis, sepsis, or toxicity. I have reevaluated this patient multiple times and no significant life threatening changes are noted. The patient and I have discussed the diagnosis and risks, and we agree with discharging home to follow-up with their primary doctor with the understanding that symptoms and presentations can change. We also discussed returning to the Emergency Department immediately if new or worsening symptoms occur. We have discussed the symptoms which are most concerning (e.g., bloody stool, fever, changing or worsening pain, vomiting) that necessitate immediate return. - Vital Signs Vital signs: Temp Pulse Resp BP Pulse Ox 98.3 F 77 16 109/74 98 10/22/17 01:11 10/22/17 01:11 10/22/17 01:11 10/22/17 01:11 10/22/17 01:11 - Diagnostic Test Radiology reviewed: Image reviewed, Reports reviewed - no acute afracture Discharge - Discharge Clinical Impression: Hand injury Qualifiers: Encounter type: initial encounter Laterality: right Qualified Code(s): S69.91XA - Unspecified injury of right wrist, hand and finger(s), initial encounter Condition: Stable Disposition: HOME, SELF-CARE Additional Instructions: Follow up with your physician tomorrow for further care or return to the ED IMMEDIATELY if symptoms worsen or new concerns occur. If you cannot afford to follow up with your primary care physician a list of low cost clinics have been provided at the end of your discharge papers as well.
--- NOTE | 2017-10-22 01:41 | RADIOLOGY REPORT (SQ) ---
EXAM DESCRIPTION: HAND RIGHT 3 VIEWS CLINICAL HISTORY: punched a tub, hand pain COMPARISON: None. FINDINGS: 3 views of the right hand. No acute fracture or dislocation. Normal osseous mineralization. IMPRESSION: No acute fracture or dislocation.
== END 2017-10-22 02:05 | disposition home or self-care (01) ==
LOC: ER 01:05
DX: S69.91XA Unspecified injury of right wrist, hand and finger(s), initial encounter (principal); W22.09XA Striking against other stationary object, initial encounter; F17.210 Nicotine dependence, cigarettes, uncomplicated; I10 Essential (primary) hypertension; J45.909 Unspecified asthma, uncomplicated; Z87.892 Personal history of anaphylaxis; Z88.8 Allergy status to other drugs, medicaments and biological substances; Z88.0 Allergy status to penicillin; Z88.1 Allergy status to other antibiotic agents; Z91.040 Latex allergy status; Z91.013 Allergy to seafood; Z88.5 Allergy status to narcotic agent; Z88.6 Allergy status to analgesic agent
CPT/HCPCS: 99283

== ENCOUNTER 2017-10-22 21:06 | Emergency (ER) | payer MEDICAID ==
--- NOTE | 2017-10-22 21:54 | RADIOLOGY REPORT (SQ) ---
EXAM DESCRIPTION: FOOT RIGHT COMPLETE COMPLETED DATE/TIME: 10/22/2017 9:43 pm REASON FOR STUDY: Pain s/p injury COMPARISON: 06/08/2017 NUMBER OF VIEWS: Three views. TECHNIQUE: AP, lateral and oblique radiographic images acquired of the right foot. LIMITATIONS: None. FINDINGS: MINERALIZATION: Normal. BONES: No acute fracture or dislocation. No worrisome bone lesions. JOINTS: No effusions. SOFT TISSUES: No soft tissue swelling. No foreign body. OTHER: No other significant finding. IMPRESSION: NEGATIVE STUDY OF THE RIGHT FOOT. NO RADIOGRAPHIC EVIDENCE OF ACUTE INJURY. TECHNICAL DOCUMENTATION: JOB ID: [id number] [employer]- All Rights Reserved Reading location - IP/workstation name: [email or web address]
--- NOTE | 2017-10-22 21:55 | RADIOLOGY REPORT (SQ) ---
EXAM DESCRIPTION: HAND RIGHT 3 VIEWS COMPLETED DATE/TIME: 10/22/2017 9:43 pm REASON FOR STUDY: Pain s/p injury COMPARISON: 10/22/2017 EXAM PARAMETERS: NUMBER OF VIEWS: Three views. TECHNIQUE: AP, lateral and oblique radiographic images acquired of the right hand. LIMITATIONS: None. FINDINGS: MINERALIZATION: Normal. BONES: No acute fracture or dislocation. No worrisome bone lesions. JOINTS: No effusions. SOFT TISSUES: No soft tissue swelling. No foreign body. OTHER: No other significant finding. IMPRESSION: NEGATIVE STUDY OF THE RIGHT HAND. NO RADIOGRAPHIC EVIDENCE OF ACUTE INJURY. TECHNICAL DOCUMENTATION: JOB ID: [id number] [employer]- All Rights Reserved Reading location - IP/workstation name: [email or web address]
--- NOTE | 2017-10-22 23:31 | ER Document Report ---
ED General - General Chief Complaint: Foot Injury Stated Complaint: RIGHT FOOT AND HAND PAIN Time Seen by Provider: 10/22/17 22:42 Mode of Arrival: Ambulatory Information source: Patient TRAVEL OUTSIDE OF THE [place] IN LAST 30 DAYS: No - HPI Patient complains to provider of: Right hand and right foot pain Onset: This afternoon Notes: Patient is here with complaints of right hand and right foot pain. This patient has been seen multiple times in the last 12 days for different types of injuries. She states that a footboard from her bed fell onto her right foot and that she punched her headboard 5 times with her right hand. She states that she did this because she was mad at her mother. She denies any numbness, tingling, weakness. No redness. No nausea, vomiting, diarrhea. No chest pain shortness of breath. She has no other complaints at this time. Pain is worse with walking and movement, nothing seems to make it better. - Related Data Allergies/Adverse Reactions: alprazolam [From Xanax] Allergy (Severe, Verified 10/14/17 21:17) CHEMICAL REACTION RESULTING IN SEIZURE amoxicillin [Amoxicillin] Allergy (Severe, Verified 10/14/17 21:17) Difficulty breathing Amphetamine Aspartate * [From Adderall] Allergy (Severe, Verified 10/14/17 21:17 ) Anaphylaxis amphetamine sulfate [From Adderall] Allergy (Severe, Verified 10/14/17 21:17) Anaphylaxis bupropion HCl [From Wellbutrin] Allergy (Severe, Verified 10/14/17 21:17) Anaphylaxis cephalexin [Cephalexin] Allergy (Severe, Verified 10/14/17 21:17) Anaphylaxis dextroamphetamine [From Adderall] Allergy (Severe, Verified 10/14/17 21:17) Anaphylaxis latex [Latex] Allergy (Severe, Verified 10/14/17 21:17) Anaphylaxis naproxen [Naproxen] Allergy (Severe, Verified 10/14/17 21:17) Anaphylaxis quetiapine fumarate [From Seroquel] Allergy (Severe, Verified 10/14/17 21:17) Anaphylaxis sertraline HCl [From Zoloft] Allergy (Severe, Verified 10/14/17 21:17) Anaphylaxis shellfish derived [Shellfish Derived] Allergy (Severe, Verified 10/14/17 21:17) Anaphylaxis tramadol [Tramadol] Allergy (Severe, Verified 10/14/17 21:17) Anaphylaxis ziprasidone HCl [From Geodon] Allergy (Severe, Verified 10/14/17 21:17) Anaphylaxis ziprasidone mesylate [From Geodon] Allergy (Severe, Verified 10/14/17 21:17) Anaphylaxis aluminum hydroxide [From Maalox] Allergy (Verified 10/14/17 21:17) Anaphylaxis calcium carbonate [From Maalox] Allergy (Verified 10/14/17 21:17) Anaphylaxis diphenhydramine [From Benadryl Allergy] Allergy (Verified 10/14/17 21:17) ibuprofen [From Motrin] Allergy (Verified 10/14/17 21:17) ketorolac [From Toradol] Allergy (Verified 10/14/17 21:17) Magnesium Hydroxide [From Maalox] Allergy (Verified 10/14/17 21:17) Anaphylaxis simethicone [From Maalox] Allergy (Verified 10/14/17 21:17) Anaphylaxis seafood Allergy (Uncoded 10/14/17 21:17) Past Medical History - Social History Smoking Status: Unknown if Ever Smoked Family History: Arthritis, CAD, CVA, DM, Hyperlipidemia, Hypertension, Malignancy, Thyroid Disfunction - Past Medical History Cardiac Medical History: Reports: Hx Hypertension Pulmonary Medical History: Reports: Hx Asthma, Hx Bronchitis, Hx Pneumonia Neurological Medical History: Reports: Hx Seizures Renal/ Medical History: Reports: Hx Ovarian Cysts. Denies: Hx Peritoneal Dialysis GI Medical History: Reports: Hx Gastroesophageal Reflux Disease Musculoskeltal Medical History: Reports Hx Arthritis, Reports Hx Musculoskeletal Deformity, Reports Hx Musculoskeletal Trauma Psychiatric Medical History: Reports: Hx Anxiety, Hx Attention Deficit Hyperactivity Disorder, Hx Bipolar Disorder, Hx Borderline Personality Disorder , Hx Depression, Hx Post Traumatic Stress Disorder Traumatic Medical History: Reports: Hx Fractures - Ankle wrist shoulder and ribs Past Surgical History: Reports: Hx Appendectomy, Hx Section, Hx Oral Surgery, Hx Tonsillectomy, Hx Tubal Ligation - Immunizations Immunizations up to date: Yes Hx Diphtheria, Pertussis, Tetanus Vaccination: Yes - [id number] Hx Pneumococcal Vaccination: 08/13/13 Review of Systems - Review of Systems -: Yes All other systems reviewed and negative Physical Exam - Notes Notes: GENERAL: alert, cooperative, nontoxic, no distress. HEAD: normocephalic, atraumatic EYES: conjunctiva pink without discharge, no external redness or swelling. EARS: no external swelling, no external redness NOSE: atraumatic, no external swelling MOUTH/THROAT: mucous membranes moist and pink NECK: soft, supple, full range of motion, no meningismus. CHEST: no distress, lungs clear and equal throughout. No wheezing, rales, rhonchi. CARDIAC: regular rate and rhythm, no murmur, normal capillary refill, normal pulses. BACK: full range of motion, no CVA tenderness. EXTREMITIES: full range of motion of all extremities. No redness, no swelling. Tenderness to palpation of the dorsum of the right hand. No redness, no swelling. Full range of motion. Normal cap refill and sensation distally. Normal radial pulse. Tenderness across the dorsum of the right foot. No redness, no swelling, no deformity. Full range of motion. No ankle tenderness. No redness. Normal pulse and sensation. Compartments are all soft. NEURO: alert and oriented 3, no focal deficits, full range of motion of all extremities. PYSCH: appropriate mood, affect. Patient is cooperative. SKIN: pink, warm, dry, no rash. Course - Re-evaluation Re-evalutation: 10/22/17 23:29 The patient is nontoxic appearing with stable vitals. The patient's been seen her multiple times over the last 12 days for different types of injuries. Today she is here for her right foot and right hand injury after dropping a footboard from her bed on her right foot and punching her headboard with her right hand. X-ray showed no acute fractures per the radiologist. Exam is benign with normal neurovascular exam and no signs of infection. Patient will have Dl wraps applied to her hand and her foot. She can be discharged home. The patient has multiple allergies, she tells me the only thing she can take is Vicodin. I explained that I will not be prescribing Vicodin for contusions and that she can take Tylenol as needed. She is instructed to rest, ice, elevate her injuries as well. Follow-up if not better in 1 week, sooner for any worsening symptoms. The patient's emergency department workup and current diagnosis were explained to the patient and or family. Follow-up instructions were provided. Medications if prescribed were discussed. Instructions for when to return to the emergency department including specific worrisome symptoms were discussed with the patient and/or family. - Diagnostic Test Radiology reviewed: Image reviewed, Reports reviewed - Right hand and right foot negative for fracture. Discharge - Discharge Clinical Impression: Contusion of right foot Qualifiers: Encounter type: initial encounter Qualified Code(s): S90.31XA - Contusion of right foot, initial encounter Hand contusion Qualifiers: Encounter type: initial encounter Laterality: right Qualified Code(s): S60.221A - Contusion of right hand, initial encounter Condition: Stable Disposition: HOME, SELF-CARE Instructions: Contusion ([facility]) Additional Instructions: Take Tylenol as needed for pain. Wear Dl wraps as needed for comfort. Rest, ice, elevate your injuries. Follow-up with your doctor if not better in 1 week , sooner for increasing pain, high fever, persistent vomiting, or for any further concerns. Forms: Smoking Cessation Education Referrals: [facility] [Provider Group] - Follow up as needed
== END 2017-10-23 00:16 | disposition home or self-care (01) ==
LOC: ER 21:06
DX: S90.31XA Contusion of right foot, initial encounter (principal); S60.221A Contusion of right hand, initial encounter; M79.641 Pain in right hand; M79.671 Pain in right foot; W22.03XA Walked into furniture, initial encounter; I10 Essential (primary) hypertension; J45.909 Unspecified asthma, uncomplicated
CPT/HCPCS: 99283

== ENCOUNTER 2017-10-23 18:08 | Emergency (ER) | payer MEDICAID ==
[2017-10-23] MEDS ORDERED: NORMAL SALINE 1000 ML 1,000 ML IV ONE ×2 (18:31→19:24)
[2017-10-23 18:40] LABS: ABSOLUTE EOSINOPHILS # (AUTO) 0.1 10^3/uL (0.0-0.6); ABSOLUTE LYMPHOCYTES (AUTO) 2.1 10^3/uL (0.5-4.7); ABSOLUTE MONOCYTES (AUTO) 0.4 10^3/uL (0.1-1.4); ABSOLUTE NEUT (AUTO) 4.7 10^3/uL (1.7-8.2); BASOPHILS % (AUTO) 0.4 % (0-2); EOSINOPHILS % (AUTO) 1.9 % (0-6); HEMATOCRIT 36.9 % (36.0-47.0); HEMOGLOBIN 12.3 g/dL (12.0-15.5); LYMPHOCYTES % (AUTO) 28.4 % (13-45); MEAN CORPUSCULAR HEMOGLOBIN 31.7 pg (27.0-33.4); MEAN CORPUSCULAR HGB CONC 33.4 g/dL (32.0-36.0); MEAN CORPUSCULAR VOLUME 95 fl (80-97); PLATELET COUNT 233 10^3/uL (150-450); RED BLOOD COUNT 3.89 10^6/uL (3.72-5.28); RED CELL DISTRIBUTION WIDTH 12.4 % (11.5-14.0); SEGMENTED NEUTROPHILS % (AUTO) 63.3 % (42-78); TOTAL CELLS COUNTED % (AUTO) 100 %; WHITE BLOOD COUNT 7.4 10^3/uL (4.0-10.5)
[2017-10-23] MEDS ORDERED: CHLORPROMAZINE HCL INJ 25 MG/1 ML AMPULE IM ONE (18:55)
[2017-10-23 19:03] LABS: ALANINE AMINOTRANSFERASE 42 U/L (9-52); ALBUMIN 4.3 g/dL (3.5-5.0); ALKALINE PHOSPHATASE 37 U/L (38-126); ANION GAP 9 (5-19); ASPARTATE AMINO TRANSFERASE 19 U/L (14-36); BILIRUBIN,DIRECT 0.3 mg/dL (0.0-0.4); BILIRUBIN,TOTAL 0.3 mg/dL (0.2-1.3); BLOOD UREA NITROGEN 13 mg/dL (7-20); CALCIUM 9.8 mg/dL (8.4-10.2); CARBON DIOXIDE 23 mmol/L (22-30); CHLORIDE 112 mmol/L (98-107); GLUCOSE 101 mg/dL (75-110); POTASSIUM 3.9 mmol/L (3.6-5.0); SODIUM 143.8 mmol/L (137-145); TOTAL PROTEIN 6.8 g/dL (6.3-8.2)
[2017-10-23 19:11] LABS: ACETAMINOPHEN < 10 ug/mL (10-30); ALCOHOL < 10 mg/dL (NONE DETECTED); SALICYLATE < 1.0 mg/dL (2.0-20.0)
[2017-10-23 19:13] LABS: LITHIUM 2.1 mEq/L (0.6-1.2)
--- NOTE | 2017-10-23 19:53 | EKG REPORT ---
SEVERITY:- ABNORMAL ECG - SINUS RHYTHM BORDERLINE T ABNORMALITIES, ANTERIOR LEADS : Confirmed by: Lul Collins MD 23-Oct-2017 19:51:51
[2017-10-23 20:37] LABS: AMORPHOUS SEDIMENT,URINE TRACE /HPF; APPEARANCE,URINE TURBID; BILIRUBIN,URINE NEGATIVE (NEGATIVE); COLOR,URINE YELLOW; GLUCOSE, URINE NEGATIVE (NEGATIVE); KETONES,URINE NEGATIVE (NEGATIVE); LEUKOCYTE ESTERASE,URINE NEGATIVE (NEGATIVE); NITRITE,URINE NEGATIVE (NEGATIVE); PROTEIN,URINE NEGATIVE (NEGATIVE); URINE SPECIFIC GRAVITY 1.014; UROBILINOGEN,URINE NEGATIVE mg/dL (<2.0)
[2017-10-23 20:49] LABS: URINE AMPHETAMINES SCREEN NEGATIVE; URINE BARBITURATES SCREEN NEGATIVE; URINE BENZODIAZEPINES SCREEN NEGATIVE; URINE COCAINE SCREEN NEGATIVE; URINE MARIJUANA (THC) SCREEN NEGATIVE; URINE METHADONE SCREEN NEGATIVE; URINE PHENCYCLIDINE SCREEN NEGATIVE
--- NOTE | 2017-10-23 22:11 | ER Document Report ---
ED General - General TRAVEL OUTSIDE OF THE [place] IN LAST 30 DAYS: No - HPI Patient complains to provider of: Overdose SI <MELISA LEYVA - Last Filed: 10/23/17 22:34> <LYNSEY CORTEZ - Last Filed: 10/24/17 03:12> - General Chief Complaint: Overdose Stated Complaint: POSSIBLE OVERDOSE Time Seen by Provider: 10/23/17 18:31 - HPI Notes: Patient coming in for evaluation of an overdose. Patient states she took a bottle for lithium tablets just prior to arrival along with a bottle full of Dilantin. Patient states she did this in no apparent suicide attempt. Patient is unaware of exactly how many pills she took. Patient also has superficial abrasions to her left arm from cutting. Patient has been to the ER multiple times for for psychiatric issues. Patient was given charcoal upon EMS arrival patient states she took the pills approximately 30 minutes before EMS. Denies any fevers chills nausea vomiting. Patient is verbal GCS 15 argumentative upon evaluation. (MELISA LEYVA) - Related Data Allergies/Adverse Reactions: alprazolam [From Xanax] Allergy (Severe, Verified 10/14/17 21:17) CHEMICAL REACTION RESULTING IN SEIZURE amoxicillin [Amoxicillin] Allergy (Severe, Verified 10/14/17 21:17) Difficulty breathing Amphetamine Aspartate * [From Adderall] Allergy (Severe, Verified 10/14/17 21:17 ) Anaphylaxis amphetamine sulfate [From Adderall] Allergy (Severe, Verified 10/14/17 21:17) Anaphylaxis bupropion HCl [From Wellbutrin] Allergy (Severe, Verified 10/14/17 21:17) Anaphylaxis cephalexin [Cephalexin] Allergy (Severe, Verified 10/14/17 21:17) Anaphylaxis dextroamphetamine [From Adderall] Allergy (Severe, Verified 10/14/17 21:17) Anaphylaxis latex [Latex] Allergy (Severe, Verified 10/14/17 21:17) Anaphylaxis naproxen [Naproxen] Allergy (Severe, Verified 10/14/17 21:17) Anaphylaxis quetiapine fumarate [From Seroquel] Allergy (Severe, Verified 10/14/17 21:17) Anaphylaxis sertraline HCl [From Zoloft] Allergy (Severe, Verified 10/14/17 21:17) Anaphylaxis shellfish derived [Shellfish Derived] Allergy (Severe, Verified 10/14/17 21:17) Anaphylaxis tramadol [Tramadol] Allergy (Severe, Verified 10/14/17 21:17) Anaphylaxis ziprasidone HCl [From Geodon] Allergy (Severe, Verified 10/14/17 21:17) Anaphylaxis ziprasidone mesylate [From Geodon] Allergy (Severe, Verified 10/14/17 21:17) Anaphylaxis aluminum hydroxide [From Maalox] Allergy (Verified 10/14/17 21:17) Anaphylaxis calcium carbonate [From Maalox] Allergy (Verified 10/14/17 21:17) Anaphylaxis diphenhydramine [From Benadryl Allergy] Allergy (Verified 10/14/17 21:17) ibuprofen [From Motrin] Allergy (Verified 10/14/17 21:17) ketorolac [From Toradol] Allergy (Verified 10/14/17 21:17) Magnesium Hydroxide [From Maalox] Allergy (Verified 10/14/17 21:17) Anaphylaxis simethicone [From Maalox] Allergy (Verified 10/14/17 21:17) Anaphylaxis seafood Allergy (Uncoded 10/14/17 21:17) Past Medical History - Social History Smoking Status: Unknown if Ever Smoked Family History: Arthritis, CAD, CVA, DM, Hyperlipidemia, Hypertension, Malignancy, Thyroid Disfunction Patient has suicidal ideation: Yes Patient has homicidal ideation: No - Past Medical History Cardiac Medical History: Reports: Hx Hypertension Pulmonary Medical History: Reports: Hx Asthma, Hx Bronchitis, Hx Pneumonia Neurological Medical History: Reports: Hx Seizures Renal/ Medical History: Reports: Hx Ovarian Cysts. Denies: Hx Peritoneal Dialysis GI Medical History: Reports: Hx Gastroesophageal Reflux Disease Musculoskeltal Medical History: Reports Hx Arthritis, Reports Hx Musculoskeletal Deformity, Reports Hx Musculoskeletal Trauma Psychiatric Medical History: Reports: Hx Anxiety, Hx Attention Deficit Hyperactivity Disorder, Hx Bipolar Disorder, Hx Borderline Personality Disorder , Hx Depression, Hx Post Traumatic Stress Disorder Traumatic Medical History: Reports: Hx Fractures - Ankle wrist shoulder and ribs Past Surgical History: Reports: Hx Appendectomy, Hx Section, Hx Oral Surgery, Hx Tonsillectomy, Hx Tubal Ligation - Immunizations Immunizations up to date: Yes Hx Diphtheria, Pertussis, Tetanus Vaccination: Yes - [id number] Hx Pneumococcal Vaccination: 08/13/13 <MELISA LEYVA - Last Filed: 10/23/17 22:34> Review of Systems - Review of Systems Constitutional: No symptoms reported EENT: No symptoms reported Cardiovascular: No symptoms reported Respiratory: No symptoms reported Gastrointestinal: No symptoms reported Genitourinary: No symptoms reported Female Genitourinary: No symptoms reported Musculoskeletal: No symptoms reported Skin: No symptoms reported Hematologic/Lymphatic: No symptoms reported Neurological/Psychological: Suicidal ideation, Other - Overdose -: Yes All other systems reviewed and negative <MELISA LEYVA - Last Filed: 10/23/17 22:34> Physical Exam - Vital signs Interpretation: Normal - General General appearance: Appears well, Alert - HEENT Head: Normocephalic, Atraumatic Eyes: Normal Conjunctiva: Normal Cornea: Normal Pupils: PERRL - Respiratory Respiratory status: No respiratory distress Chest status: Nontender Breath sounds: Normal Chest palpation: Normal - Cardiovascular Rhythm: Regular Heart sounds: Normal auscultation Murmur: No - Abdominal Inspection: Normal Distension: No distension Bowel sounds: Normal Tenderness: Nontender Organomegaly: No organomegaly - Back Back: Normal, Nontender - Extremities General upper extremity: Normal inspection, Nontender, Normal color, Normal ROM , Normal temperature General lower extremity: Nontender, Normal color, Normal ROM, Normal temperature , Normal weight bearing. No: Normal inspection - Multiple superficial abrasions to the left arm., Guille's sign - Neurological Neuro grossly intact: Yes Cognition: Normal Orientation: AAOx4 Jessa Coma Scale Eye Opening: Spontaneous Jessa Coma Scale Verbal: Oriented Jessa Coma Scale Motor: Obeys Commands [place] Coma Scale Total: 15 Speech: Normal Motor strength normal: LUE, RUE, LLE, RLE Sensory: Normal - Psychological Associated symptoms: Normal affect, Normal mood - Skin Skin Temperature: Warm Skin Moisture: Dry Skin Color: Normal <MELISA LEYVA - Last Filed: 10/23/17 22:34> <LYNSEY CORTEZ - Last Filed: 10/24/17 03:12> - Vital signs Vitals: Resp Pulse Ox 39 H 100 10/23/17 18:13 10/23/17 18:13 - HEENT Notes: Negative nystagmus (MELISA LEYVA) Course - Laboratory Result Diagrams: 10/23/17 18:30 10/23/17 18:30 <MELISA LEYVA - Last Filed: 10/23/17 22:34> - Laboratory Result Diagrams: 10/23/17 18:30 10/23/17 18:30 <LYNSEY CORTEZ - Last Filed: 10/24/17 03:12> - Re-evaluation Re-evalutation: 10/23/17 22:13 Patient coming in for evaluation of an overdose possibly on lithium and Dilantin. Patient's initial physical examination was otherwise benign. Patient did become agitated requiring physical. Patient is allergic to multiple medications however upon previous visit did tolerate Thorazine very well. Restraints and chemicals to aid her condition patient's initial laboratory studies not show significant pathology except for slightly elevated lithium level. A [place] catheter was placed to monitor output IV fluids working continuous. I did discuss laboratory values with poison control as discussed with [place] poison control. Agrees to plan this time to repeat a lithium level and Dilantin level will continue to monitor. 10/23/17 22:34 [place] level increased slightly from 2.1-2.3. Next discussed again with poison control [place] at this time is recommended to continue to monitor patient continue IV fluids. We will repeat another lithium level in approximately another 4-6 hours. Patient reevaluated still remains asymptomatic (MELISA LEYVA) 10/24/17 03:10 Patient's 4 hour repeat lithium level went up again. The trend was from 2.1-2.3 -2.5. Patient is only received about a liter and a half of IV fluids with saline. Repeat exam on the patient showed no significant hyperreflexia or clonus. The patient is alert and conversant and denies any nausea or weakness. She requests her restraints be removed and she states that she will be cooperative. She tolerated p.o. fluids. The patient clinically seems to be improving after sleeping from Thorazine. Discussion was undertaken with [facility], related to the rising lithium level. Given that the lithium level is still below 3, and the patient seems to be otherwise stable with normal vital signs, the recommendation is to continue with rehydration and recheck a lithium level in 4 hours. Patient is given an additional 1 L normal saline bolus, and then D5 one half normal with 40 of KCl at 250 an hour for 4 hours. Repeat lithium level and conference of metabolic panel ordered on the patient. The patient is still on a quality assurance monitor final without ectopy or QRS changes. (LYNSEY CORTEZ) - Vital Signs Vital signs: Temp Pulse Resp BP Pulse Ox 16 113/76 99 10/24/17 01:01 10/24/17 01:01 10/24/17 01:01 - Laboratory Laboratory results interpreted by me: 10/23/17 10/23/17 10/24/17 18:30 21:40 02:00 Chloride 112 H Alkaline Phosphatase 37 L Salicylates < 1.0 L Acetaminophen < 10 L [place] 2.1 H* 2.3 H* 2.5 H* Critical Care Note - Critical Care Note Total time excluding time spent on procedures (mins): 35 <MELISA LEYVA - Last Filed: 10/23/17 22:34> <LYNSEY CORTEZ - Last Filed: 10/24/17 03:12> - Critical Care Note Comments: Multiple evaluation for patient due to possible toxic overdose (MELISA LEYVA) Discharge <MELISA LEYVA - Last Filed: 10/23/17 22:34> <LYNSEY CORTEZ - Last Filed: 10/24/17 03:12> - Discharge Clinical Impression: Suicide attempt polysubstance overdose, Seizure disorder Condition: Fair Disposition: PSYCH HOSP/UNIT
[2017-10-24] MEDS ORDERED: NORMAL SALINE 1000 ML 1,000 ML IV ONE (03:03)
[2017-10-24] MEDS ORDERED: POTASSI CL 40 MEQ/D5-1/2NS 1L 40 MEQ/1,000 ML RTUINJ IV ONE (03:03)
[2017-10-24 06:45] LABS: ALANINE AMINOTRANSFERASE 33 U/L (9-52); ALBUMIN 3.5 g/dL (3.5-5.0); ALKALINE PHOSPHATASE 34 U/L (38-126); ANION GAP 8 (5-19); ASPARTATE AMINO TRANSFERASE 17 U/L (14-36); BILIRUBIN,DIRECT 0.1 mg/dL (0.0-0.4); BILIRUBIN,TOTAL 0.3 mg/dL (0.2-1.3); BLOOD UREA NITROGEN 8 mg/dL (7-20); CALCIUM 8.7 mg/dL (8.4-10.2); CARBON DIOXIDE 19 mmol/L (22-30); CHLORIDE 118 mmol/L (98-107); GLUCOSE 85 mg/dL (75-110); POTASSIUM 3.7 mmol/L (3.6-5.0); SODIUM 144.8 mmol/L (137-145); TOTAL PROTEIN 5.6 g/dL (6.3-8.2)
[2017-10-24 06:53] LABS: LITHIUM 2.6 mEq/L (0.6-1.2)
[2017-10-24] MEDS ORDERED: NICOTINE 21 MG/24 HR PATCH.TD24 TD ONE (08:14)
[2017-10-24] MEDS ORDERED: NORMAL SALINE 1000 ML 1,000 ML IV PRN (08:50)
--- NOTE | 2017-10-24 09:19 | ER Document Report ---
Doctor's Note Notes: As the rounding physician for our psychiatric patients, I have reviewed the chart, vitals, lab work. Patient has been examined and noted to be stable however her lithium level has been increasing repeat has been ordered for 10 AM still waiting blood draw. I am awaiting mental health in put.
--- NOTE | 2017-10-24 15:54 | PSYCHOLOGICAL NOTE ---
Psych Note - Psych Note Psych Note: Reason for Consult: OD of [place] and Dilantin Contact Permission: Urbano Mccarty [phone] Patient is a 27 year old female who presented to the ED last evening for an intentional OD. She admitted to trying to OD "because she doesn't have her 3 children." She further reported she had plans with her daughter, her mother said she could not talk to her daughter let alone see her and this "pissed patient off." She stated her children don't know who she is so what is the point. She stated her boyfriend was the one who found her and called 9--1. She admitted to previous OD attempts with the last one being 7 years ago. She acknowledged she was hospitalized at [place] in May 2017. She identified her outpatient MH provider is Dr. Dent at [facility] and her last appointment was 10/10/17. She reported she is prescribed Trileptal, [place] and Gabapentin. She stated she will not be taking [place] anymore after this. She identified she has a seizure disorder and is prescribed Dilantin and Trokendi for the management of it. She stated her most recent seizure was 3 days ago and she did not receive medical treatment for it. She was able to verbalize her catheter was painful and she wanted a Pepsi. Patient was asleep, easily aroused and took a few minutes to become more oriented. She was groggy however became more alert and oriented throughout evaluation. Once alert and oriented it was to person, place, time and situation. Mood was depressed with flat affect (may have been due to groggy state). She denied current SI, admitted to trying to OD last night and admitted to previous OD attempts. She denied HI. She did not appear to be responding to internal stimuli AEB fair eye contact, staying on topic and appropriately answering questions when addressed. Thought processes were linear. Conversational speech was at first slurred but again as she became more alert and oriented her speech became more and more WNL for rate, tone and prosody. Intellectual abilities are estimated to be average. Insight, judgment and impulse control are poor AEB saying she was ready to go home and minimizing her actions. Patient gave verbal consent to speak to her boyfriend. [facility] Behavioral Health team obtained collateral from boyiensaira. Attending Nurse informed this clinician at 0848 that Poison Control was still requiring monitoring given unsure if [place] was ER or regular (so unsure of she reached peak point yet). They require [place] levels to continue trending down and 250ML of Saline be administered with a certain amount of urine output. For this reason patient is not medically cleared yet. Diagnosis: 296.80 (F31.9) Unspecified Bipolar and Related Disorder R/O 301.83 (F60.3) Borderline Personality Disorder Medications: Medication recommendations made by the [facility] psychiatric medical provider, Dr. Loreto MD, include: None at this time given significant OD and elevated [place] levels. Impression/Plan: Recommendation to maintain IVC given significant OD attempt resulting in elevated [place] levels that Poison Control requires continued monitoring for. She will likely be held overnight and reassessed in the morning for further determination of plan of care. Consulted with Dr. Ramires regarding the management and care of patient. ED Physician in agreement with recommendations.
[2017-10-24] MEDS ORDERED: OLANZAPINE 5 MG TABLET PO SCH (18:15)
[2017-10-24] MEDS ORDERED: OLANZAPINE 5 MG TABLET PO ONE (19:00)
[2017-10-25] MEDS ORDERED: OLANZAPINE 5 MG TABLET PO SCH (06:00)
--- NOTE | 2017-10-25 09:41 | ER Document Report ---
Doctor's Note Notes: 10/25/17 09:39 Rounds: Chart reviewed and patient interviewed. Patient evaluated for suicidal ideation and overdose, primarily of lithium. She has bipolar disorder. Patient has had numerous visits to this emergency department for psychiatric concerns. Her lithium level initially was elevated and ascending, but now has reversed and is declining. Patient has no physical abnormalities, no arrhythmia , etc. Lab studies were essentially normal except for the elevated lithium level and her sodium and chloride were elevated after she had received about 5 L of saline. Vital signs are all normal. Patient appears to be medically stable for transfer or discharge. Kalani Garcia MD
--- NOTE | 2017-10-25 09:52 | PSYCHOLOGICAL NOTE ---
Psych Note - Psych Note Psych Note: Psych Note: Reason for Consult: OD of [place] and Dilantin Contact Permission: Boyfriensaira Mccarty [phone] Patient is a 27 year old female who presented to the ED last evening for an intentional OD. She admitted to trying to OD "because she doesn't have her 3 children." She further reported she had plans with her daughter, her mother said she could not talk to her daughter let alone see her and this "pissed patient off." She stated her children don't know who she is so what is the point. She stated her boyfriend was the one who found her and called 9-1-1. She admitted to previous OD attempts with the last one being 7 years ago. She acknowledged she was hospitalized at [place] in May 2017. She identified her outpatient MH provider is Dr. Dent at [facility] and her last appointment was 10/10/17. She reported she is prescribed Trileptal, [place] and Gabapentin. She stated she will not be taking [place] anymore after this. She identified she has a seizure disorder and is prescribed Dilantin and Trokendi for the management of it. She stated her most recent seizure was 3 days ago and she did not receive medical treatment for it. She was able to verbalize her catheter was painful and she wanted a Pepsi. Patient disclosed she does not want to harm herself. She continues to confirm she has an appointment today at 1045 a.m. with her outpatient mental health provider, [facility]. Patient states she currently lives with her boyfriend and friend. Clinician spoke with her boyfriend, Lul, who states he confirms he will be part of patient's discharge plan to ensure she does not have access to medications or weapons and follows through with her mental health treatment. Patient states she has gone through dialectical behavioral therapy in the past but cannot remember the exact time. Diagnosis: 296.80 (F31.9) Unspecified Bipolar and Related Disorder R/O 301.83 (F60.3) Borderline Personality Disorder Medications: Medication recommendations made by the [facility] psychiatric medical provider, Dr. Loreto MD, include: None at this time Impression/Plan: Patient is recommended for rescind of IVC and is considered psychologically cleared. Patient has a history maladaptive coping skills to include self-harm. Patient denies current suicidal ideation and no longer meets IVC criteria per [place] GS 122C. She has an appointment at her outpatient provider today at 1045. Patient is recommended to engage in Dialectical Behavioral Therapy (DBT) to learn healthy coping and life skills. Consulted with Dr. Ramires regarding the management and care of patient. ED Physician in agreement with recommendations.
[2017-10-25 10:09] VITALS: BP 130/88
== END 2017-10-25 10:07 | disposition home or self-care (01) ==
LOC: EEVIPCON 18:08 → ER 18:08
DX: T56.892A Toxic effect of other metals, intentional self-harm, initial encounter (principal); T42.0X2A Poisoning by hydantoin derivatives, intentional self-harm, initial encounter; F31.9 Bipolar disorder, unspecified; F60.3 Borderline personality disorder; S40.812A Abrasion of left upper arm, initial encounter; W45.8XXA Other foreign body or object entering through skin, initial encounter; G40.909 Epilepsy, unspecified, not intractable, without status epilepticus; I10 Essential (primary) hypertension; J45.909 Unspecified asthma, uncomplicated; Z88.6 Allergy status to analgesic agent; Z87.892 Personal history of anaphylaxis; Z88.8 Allergy status to other drugs, medicaments and biological substances; Z88.0 Allergy status to penicillin; Z91.040 Latex allergy status; Z91.013 Allergy to seafood; Z88.5 Allergy status to narcotic agent; Z78.1 Physical restraint status
CPT/HCPCS: 93005; 99291; 96372; 96361; 51702; 96365; 96366; 36415; 80307 ×4; 80178; 80185; 85025; 80053; 81001; 93010; J3480; J3230; J3490 ×2; J7030 ×2

== ENCOUNTER 2017-10-30 00:16 | Emergency (ER) | payer MEDICAID ==
--- NOTE | 2017-10-30 01:50 | ER Document Report ---
ED General - General Chief Complaint: Cold Symptoms Stated Complaint: DIFFICULTY BREATHING Time Seen by Provider: 10/30/17 01:36 Notes: Patient is a 27-year-old female who presents emergency department with a chief complaint of shortness of breath. Patient states that she recently saw her primary care doctor yesterday and was told that there is concern that she has asthma and she was started on a home nebulizer and told to start taking home Advair. Patient states that she did not picker tender helper her home Advair. She states that she did a breathing treatment prior to arrival and feels better. She states that she is also being referred to an ear nose and throat and asthma specialist to be seen on Sunday. She denies any fevers, chills, difficulty breathing, shortness of breath, chest pain at this time. TRAVEL OUTSIDE OF THE [place] IN LAST 30 DAYS: No - Related Data Allergies/Adverse Reactions: alprazolam [From Xanax] Allergy (Severe, Verified 10/14/17 21:17) CHEMICAL REACTION RESULTING IN SEIZURE amoxicillin [Amoxicillin] Allergy (Severe, Verified 10/14/17 21:17) Difficulty breathing Amphetamine Aspartate * [From Adderall] Allergy (Severe, Verified 10/14/17 21:17 ) Anaphylaxis amphetamine sulfate [From Adderall] Allergy (Severe, Verified 10/14/17 21:17) Anaphylaxis bupropion HCl [From Wellbutrin] Allergy (Severe, Verified 10/14/17 21:17) Anaphylaxis cephalexin [Cephalexin] Allergy (Severe, Verified 10/14/17 21:17) Anaphylaxis dextroamphetamine [From Adderall] Allergy (Severe, Verified 10/14/17 21:17) Anaphylaxis latex [Latex] Allergy (Severe, Verified 10/14/17 21:17) Anaphylaxis naproxen [Naproxen] Allergy (Severe, Verified 10/14/17 21:17) Anaphylaxis quetiapine fumarate [From Seroquel] Allergy (Severe, Verified 10/14/17 21:17) Anaphylaxis sertraline HCl [From Zoloft] Allergy (Severe, Verified 10/14/17 21:17) Anaphylaxis shellfish derived [Shellfish Derived] Allergy (Severe, Verified 10/14/17 21:17) Anaphylaxis tramadol [Tramadol] Allergy (Severe, Verified 10/14/17 21:17) Anaphylaxis ziprasidone HCl [From Geodon] Allergy (Severe, Verified 10/14/17 21:17) Anaphylaxis ziprasidone mesylate [From Geodon] Allergy (Severe, Verified 10/14/17 21:17) Anaphylaxis aluminum hydroxide [From Maalox] Allergy (Verified 10/14/17 21:17) Anaphylaxis calcium carbonate [From Maalox] Allergy (Verified 10/14/17 21:17) Anaphylaxis diphenhydramine [From Benadryl Allergy] Allergy (Verified 10/14/17 21:17) ibuprofen [From Motrin] Allergy (Verified 10/14/17 21:17) ketorolac [From Toradol] Allergy (Verified 10/14/17 21:17) Magnesium Hydroxide [From Maalox] Allergy (Verified 10/14/17 21:17) Anaphylaxis simethicone [From Maalox] Allergy (Verified 10/14/17 21:17) Anaphylaxis seafood Allergy (Uncoded 10/14/17 21:17) Past Medical History - Social History Smoking Status: Never Smoker Family History: Arthritis, CAD, CVA, DM, Hyperlipidemia, Hypertension, Malignancy, Thyroid Disfunction - Past Medical History Cardiac Medical History: Reports: Hx Hypertension Pulmonary Medical History: Reports: Hx Asthma, Hx Bronchitis, Hx Pneumonia Neurological Medical History: Reports: Hx Seizures Renal/ Medical History: Reports: Hx Ovarian Cysts. Denies: Hx Peritoneal Dialysis GI Medical History: Reports: Hx Gastroesophageal Reflux Disease Musculoskeltal Medical History: Reports Hx Arthritis, Reports Hx Musculoskeletal Deformity, Reports Hx Musculoskeletal Trauma Psychiatric Medical History: Reports: Hx Anxiety, Hx Attention Deficit Hyperactivity Disorder, Hx Bipolar Disorder, Hx Borderline Personality Disorder , Hx Depression, Hx Post Traumatic Stress Disorder Traumatic Medical History: Reports: Hx Fractures - Ankle wrist shoulder and ribs Past Surgical History: Reports: Hx Appendectomy, Hx Section, Hx Oral Surgery, Hx Tonsillectomy, Hx Tubal Ligation - Immunizations Immunizations up to date: Yes Hx Diphtheria, Pertussis, Tetanus Vaccination: Yes - [id number] Hx Pneumococcal Vaccination: 08/13/13 Review of Systems - Review of Systems Notes: REVIEW OF SYSTEMS: CONSTITUTIONAL : Denies fever, chills, or sweats. Denies recent illness. EENT: Denies eye, ear, throat, or mouth pain or symptoms. Denies nasal or sinus congestion or discharge. Denies throat, tongue, or mouth swelling or difficulty swallowing. CARDIOVASCULAR: Denies chest pain. Denies palpitations or racing or irregular heart beat. Denies ankle edema. RESPIRATORY: See HPI GASTROINTESTINAL: Denies abdominal pain or distention. Denies nausea, vomiting , or diarrhea. Denies blood in vomitus, stools, or per rectum. Denies black, tarry stools. Denies constipation. GENITOURINARY: Denies difficulty urinating, painful urination, burning, frequency, blood in urine, or discharge. MUSCULOSKELETAL: Denies any muscle spasms, difficulty walking, extremity pain SKIN: Denies rash, lesions or sores. NEUROLOGICAL: Denies confusion or altered mental status. Denies passing out or loss of consciousness. Denies dizziness or lightheadedness. Denies headache. Denies weakness or paralysis or loss of use of either side. Denies problems with gait or speech. Denies sensory loss, numbness, or tingling. Denies seizures. PSYCHIATRIC: Denies anxiety or stress. Denies depression, suicidal ideation, or homicidal ideation. ALL OTHER SYSTEMS REVIEWED AND NEGATIVE. Dictation was performed using [employer] voice recognition software Physical Exam - Vital signs Vitals: Temp Pulse BP Pulse Ox 97.7 F 75 115/79 100 10/30/17 00:30 10/30/17 00:30 10/30/17 00:30 10/30/17 00:30 - Notes Notes: PHYSICAL EXAM GENERAL: Alert, interacts well. HEAD: Normocephalic, atraumatic. EYES: Pupils equal, round, and reactive to light. Extraocular movements intact. ENT: Oral mucosa moist, tongue midline. NECK: Full range of motion. Supple. Trachea midline. LUNGS: Intermittent stridorous noise when patient takes deep rapid full breaths. But able to speak in full sentences and when breathing normally no evidence of it. Auscultation without any evidence of stridor clear to auscultation bilaterally, no wheezes, rales, or rhonchi. No respiratory distress. HEART: Regular rate and rhythm. No murmurs, gallops, or rubs. ABDOMEN: Soft, nondistended, nontender. No guarding, rebound, or rigidity.. Bowel sounds present in all 4 quadrants. EXTREMITIES: Moves all 4 extremities spontaneously. No edema, radial and dorsalis pedis pulses 2/4 bilaterally. No cyanosis. NEUROLOGICAL: Alert and oriented x4. Normal speech. PSYCH: Normal affect, normal mood. SKIN: Warm, dry, normal turgor. No rashes or lesions noted. Course - Re-evaluation Re-evalutation: 10/30/17 02:51 Patient is a 27-year-old female who is hemodynamically stable, no acute distress and afebrile. No evidence of airway swelling noted on soft tissue of the neck, concern for epiglottitis, no evidence of acute findings on chest x- ray. Given patient has been having symptoms like this for over a month and is following up with specialists will educate her on taking her home Advair as directed as well as her rescue inhaler. I do not feel that steroids are appropriate at this time given patient's recent admission for overdose and recent visits for side effects of previous prednisone burst therapy she had been on for similar presentation about 2 weeks ago. Patient is agreeable with plan and stable for discharge home - Vital Signs Vital signs: Temp Pulse Resp BP Pulse Ox 98 F 68 18 104/62 100 10/30/17 03:03 10/30/17 03:03 10/30/17 03:03 10/30/17 03:03 10/30/17 03:03 - Diagnostic Test Radiology reviewed: Image reviewed, Reports reviewed Discharge - Discharge Clinical Impression: Asthma Qualifiers: Asthma severity: unspecified severity Asthma persistence: unspecified Asthma complication type: unspecified Qualified Code(s): J45.909 - Unspecified asthma, uncomplicated Condition: Good Disposition: HOME, SELF-CARE Additional Instructions: Please keep your appointment with the Ear, nose and throat specialist tomorrow ASTHMA: You have been diagnosed as having asthma. This is a condition where there is episodic tightness in the bronchial tubes. Allergies, infections, and polluted or cold air may be contributing factors. Emergency treatment of a severe asthma attack may include adrenaline shots , or bronchodilator aerosol. You may feel lightheaded, have a decreased exercise tolerance and a rapid pulse for an hour or two. Rest and get plenty of fluids. Home treatment of asthma requires bronchodilator drugs. These can be administered by injection, inhalation, or by mouth. Antibiotics and corticosteroids may be required for some patients. You should avoid chemical fumes, dusts, pollens, and exercising in very cold or dry air. If you smoke, stop!! If you develop a fever, increased wheezing, chest pain, or severe shortness of breath, you should contact the doctor immediately. INHALED BRONCHODILATORS: You have received treatment(s) of and/or prescription for an inhaled bronchodilator -- a medication which stimulates the airways in the lung to dilate. This improves the flow of air in asthma, bronchitis, and emphysema. These medicines have some similarity to adrenaline, and can cause similar side effects: shakiness, racing heart, and a sense of nervousness. These side effects decrease with time. Contact your doctor if these side effects are severe. Do not over-use the medicine. Too-frequent use of the inhaler may make it ineffective. Call your doctor if the inhaler is not controlling your symptoms at the prescribed doses. SMOKING: If you smoke, you should stop smoking. The tar and chemicals in cigarette smoke are harmful. Smoking has been shown to cause: emphysema chronic bronchitis lung cancer mouth and throat cancer stomach and pancreas cancer premature aging defects In addition, smoking increases ear and lung infections in children of smokers. USE OF ACETAMINOPHEN: Acetaminophen may be taken for pain relief or fever control. It's much safer than aspirin, offering a wider range of "safe" dosages. It is safe during . Some brand names are Tylenol, Panadol, Datril, Anacin 3, Tempra, and Liquiprin. Acetaminophen can be repeated every four hours. The following are maximum recommended dosages: USE OF ACETAMINOPHEN (Tylenol): Acetaminophen may be taken for pain relief or fever control. It's much safer than aspirin, offering a wider range of "safe" dosages. It is safe during . Some brand names are Tylenol, Panadol, Datril, Anacin 3, Tempra, and Liquiprin. Acetaminophen can be repeated every four hours. The following are maximum recommended dosages: WEIGHT Dose Drops Elixir Chewable( 80mg) (LBS.) drprs=droppers tsp=teaspoon 6 40 mg 0.4 ml (1/2) 6-11 80 mg 0.8 ml (full) tsp 1 tab 12-16 120 mg 1 1/2 drprs 3/4 tsp 1 1/2 tabs 17-23 160 mg 2 drprs 1 tsp 2 tabs 24-30 240 mg 3 drprs 1 1/2 tsp 3 tabs 30-35 320 mg 2 tsp 4 tabs 36-41 360 mg 2 1/4 tsp 4 1/2 tabs 42-47 400 mg 2 1/2 tsp 5 tabs 48-53 480 mg 3 tsp 6 tabs 54-59 520 mg 3 1/4 tsp 6 1/2 tabs 60-64 560 mg 3 1/2 tsp 7 tabs 65-70 600 mg 3 3/4 tsp 7 1/2 tabs 71-76 640 mg 4 tsp 8 tabs 77-82 720 mg 4 1/2 tsp 9 tabs 83-88 800 mg 5 tsp 10 tabs >89 pounds or adults 650 mg to 900 mg Acetaminophen can be repeated every four hours. Maximum dose not to exceed 4000 mg a day. These maximum recommended dosages are slightly higher than the dosages written on the product container, but these dosages are very safe and below the toxic dosage for acetaminophen. FOLLOW-UP CARE: If you have been referred to a physician for follow-up care, call the physician s office for an appointment as you were instructed or within the next two days. If you experience worsening or a significant change in your symptoms, notify the physician immediately or return to the Emergency Department at any time for re-evaluation. Referrals: SUSANNE SCHNEIDER MD [Primary Care Provider] - Follow up as needed
--- NOTE | 2017-10-30 02:32 | RADIOLOGY REPORT (SQ) ---
EXAM DESCRIPTION: SOFT TISSUE NECK CLINICAL HISTORY: cough, SOB COMPARISON: None. FINDINGS: Frontal and lateral views of the neck soft tissues. Prevertebral soft tissues are normal. The epiglottis is not enlarged. No ballooning of the hypopharynx. No air in the prevertebral/retropharyngeal mucosal soft tissues. Visualized osseous structures demonstrate no acute abnormalities. IMPRESSION: No acute abnormality of the neck soft tissues identified.
--- NOTE | 2017-10-30 02:33 | RADIOLOGY REPORT (SQ) ---
EXAM DESCRIPTION: CHEST PA/LAT CLINICAL HISTORY: cough, SOB COMPARISON: 10/14/2017 FINDINGS: Frontal and lateral views of the chest. The cardiomediastinal silhouette has normal size and contour. No consolidation, pneumothorax, or pleural effusion. No displaced rib fractures identified. Low lung volumes. Upper abdominal soft tissues are unremarkable. IMPRESSION: 1. No acute pulmonary process identified.
[2017-10-30] MEDS ORDERED: ALBUTEROL SULFATE 0.083% NEB 2.5 MG/3 ML AMPUL NEB ONE (02:52)
[2017-10-30] MEDS ORDERED: ALBUTEROL SULFATE HFA (90 MCG/PUFF) 8 GM MDI (1 MDI/ER DISP) IH PRN (02:53)
[2017-10-30 03:04] VITALS: BP 104/62
--- NOTE | 2017-10-30 09:31 | EKG REPORT ---
SEVERITY:- BORDERLINE ECG - SINUS RHYTHM BORDERLINE T ABNORMALITIES, ANTERIOR LEADS : Confirmed by: Augustin Rogel 30-Oct-2017 09:31:03
== END 2017-10-30 03:04 | disposition home or self-care (01) ==
LOC: ER 00:16
DX: J45.909 Unspecified asthma, uncomplicated (principal); R06.02 Shortness of breath; I10 Essential (primary) hypertension; Z87.01 Personal history of pneumonia (recurrent); Z88.6 Allergy status to analgesic agent; Z87.892 Personal history of anaphylaxis; Z88.8 Allergy status to other drugs, medicaments and biological substances; Z88.1 Allergy status to other antibiotic agents; Z91.040 Latex allergy status; Z88.5 Allergy status to narcotic agent; Z91.013 Allergy to seafood
CPT/HCPCS: 93005; 99285; 71046; 70360; 93010; J3490

== ENCOUNTER 2017-11-09 01:13 | Emergency (ER) | payer MEDICAID ==
[2017-11-09 01:20] VITALS: BP 113/72
[2017-11-09] MEDS ORDERED: SULFAMETHOXAZOLE/TRIMETHOPRIM 800-160 MG TABLET PO ONE (01:35)
[2017-11-09] MEDS ORDERED: ACETAMINOPHEN 325 MG TABLET PO ONE (01:35)
--- NOTE | 2017-11-09 01:35 | ER Document Report ---
HPI - HPI Pain Level: 3 Context: Patient is a 27-year-old female returns to the emergency department with a chief complaint of concern for MRSA. Patient states that since Sunday she noticed a spot on her left forearm that is becoming more painful and red. She states that she did not try and drain it herself. She does admit to history of MRSA. Denies any fevers, chills, streaking, swelling. - REPRODUCTIVE LMP: now Reproductive: DENIES: : Past Medical History - General Information source: Patient - Social History Smoking Status: Never Smoker Family History: Arthritis, CAD, CVA, DM, Hyperlipidemia, Hypertension, Malignancy, Thyroid Disfunction - Past Medical History Cardiac Medical History: Reports: Hx Hypertension Pulmonary Medical History: Reports: Hx Asthma, Hx Bronchitis, Hx Pneumonia Neurological Medical History: Reports: Hx Seizures Renal/ Medical History: Reports: Hx Ovarian Cysts. Denies: Hx Peritoneal Dialysis GI Medical History: Reports: Hx Gastroesophageal Reflux Disease Musculoskeltal Medical History: Reports Hx Arthritis, Reports Hx Musculoskeletal Deformity, Reports Hx Musculoskeletal Trauma Psychiatric Medical History: Reports: Hx Anxiety, Hx Attention Deficit Hyperactivity Disorder, Hx Bipolar Disorder, Hx Borderline Personality Disorder , Hx Depression, Hx Post Traumatic Stress Disorder Traumatic Medical History: Reports: Hx Fractures - Ankle wrist shoulder and ribs Past Surgical History: Reports: Hx Appendectomy, Hx Section, Hx Oral Surgery, Hx Tonsillectomy, Hx Tubal Ligation - Immunizations Immunizations up to date: Yes Hx Diphtheria, Pertussis, Tetanus Vaccination: Yes - [id number] Hx Pneumococcal Vaccination: 08/13/13 Vertical Provider Document - CONSTITUTIONAL Agree With Documented VS: Yes Notes: PHYSICAL EXAM GENERAL: Alert, interacts well. LUNGS: Clear to auscultation bilaterally, no wheezes, rales, or rhonchi. No respiratory distress. HEART: Regular rate and rhythm. No murmurs, gallops, or rubs. EXTREMITIES: Moves all 4 extremities spontaneously. No edema, radial and dorsalis pedis pulses 2/4 bilaterally. No cyanosis. NEUROLOGICAL: Alert and oriented x4. Normal speech. PSYCH: Normal affect, normal mood. SKIN: Warm, dry, normal turgor. Abrasions noted along the forearm not consistent with any self-harm pattern and a focal follicular erythematous area with tenderness but no central fluctuance, induration consistent with an abscess - INFECTION CONTROL TRAVEL OUTSIDE OF THE [place] IN LAST 30 DAYS: No Course - Re-evaluation Re-evalutation: 11/09/17 07:25 Patient presents with symptoms most consistent with an acute cellulitis. Vitals within normal limits. Patient does not meet sepsis criteria is overall very well in appearance. Exam and history are not consistent with DVT. Patient will be started on coverage for MRSA. At this time will discharge with return precautions and follow-up recommendations. Verbal discharge instructions given a the bedside and opportunity for questions given. Medication warnings reviewed. Patient is in agreement with this plan and has verbalized understanding of return precautions and the need for primary care follow-up in the next 24-72 hours. - Vital Signs Vital signs: Temp Pulse Resp BP Pulse Ox 98.3 F 82 18 113/72 97 11/09/17 01:19 11/09/17 01:19 11/09/17 01:19 11/09/17 01:19 11/09/17 01:19 Discharge - Discharge Clinical Impression: Cellulitis Qualifiers: Site of cellulitis: extremity Site of cellulitis of extremity: upper extremity Laterality: left Qualified Code(s): L03.114 - Cellulitis of left upper limb Condition: Good Disposition: HOME, SELF-CARE Instructions: Acetaminophen, MRSA Cellulitis ([facility]), Warm Packs ([facility]) Prescriptions: Sulfamethoxazole/Trimethoprim [Bactrim Ds Tablet] 1 each PO BID #10 tablet Referrals: SUSANNE SCHNEIDER MD [Primary Care Provider] - Follow up in 3-5 days
== END 2017-11-09 02:15 | disposition home or self-care (01) ==
LOC: ER 01:13
DX: L03.114 Cellulitis of left upper limb (principal); Z86.14 Personal history of Methicillin resistant Staphylococcus aureus infection; I10 Essential (primary) hypertension; J45.909 Unspecified asthma, uncomplicated
CPT/HCPCS: 99283; J3490 ×2

== ENCOUNTER 2017-11-12 02:48 | Emergency (ER) | payer MEDICAID ==
[2017-11-12] MEDS ORDERED: DEXAMETHASONE SOD PHOS INJ 10 MG/1 ML VIAL IM ONE (04:41)
[2017-11-12] MEDS ORDERED: CYCLOBENZAPRINE HCL 10 MG TABLET PO ONE (04:41)
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
[2017-11-12 05:26] VITALS: BP 118/67
== END 2017-11-12 05:15 | disposition home or self-care (01) ==
LOC: ER 02:48
DX: M54.5 Low back pain (principal); I10 Essential (primary) hypertension; J45.909 Unspecified asthma, uncomplicated
CPT/HCPCS: 99283; 96372; J3490; J1100

== ENCOUNTER 2017-11-12 20:22 | Emergency (ER) | payer MEDICAID ==
--- NOTE | 2017-11-12 20:42 | ER Document Report ---
ED Medical Screen (RME) - General Chief Complaint: Abdominal Pain Stated Complaint: CRAMPS Time Seen by Provider: 11/12/17 20:38 TRAVEL OUTSIDE OF THE [place] IN LAST 30 DAYS: No - HPI Notes: 11/12/17 20:41 Spotting cramping nausea vomiting - Related Data Allergies/Adverse Reactions: alprazolam [From Xanax] Allergy (Severe, Verified 11/12/17 20:23) CHEMICAL REACTION RESULTING IN SEIZURE amoxicillin [Amoxicillin] Allergy (Severe, Verified 11/12/17 20:23) Difficulty breathing Amphetamine Aspartate * [From Adderall] Allergy (Severe, Verified 11/12/17 20:23 ) Anaphylaxis amphetamine sulfate [From Adderall] Allergy (Severe, Verified 11/12/17 20:23) Anaphylaxis bupropion HCl [From Wellbutrin] Allergy (Severe, Verified 11/12/17 20:23) Anaphylaxis cephalexin [Cephalexin] Allergy (Severe, Verified 11/12/17 20:23) Anaphylaxis dextroamphetamine [From Adderall] Allergy (Severe, Verified 11/12/17 20:23) Anaphylaxis latex [Latex] Allergy (Severe, Verified 11/12/17 20:23) Anaphylaxis naproxen [Naproxen] Allergy (Severe, Verified 11/12/17 20:23) Anaphylaxis quetiapine fumarate [From Seroquel] Allergy (Severe, Verified 11/12/17 20:23) Anaphylaxis sertraline HCl [From Zoloft] Allergy (Severe, Verified 11/12/17 20:23) Anaphylaxis shellfish derived [Shellfish Derived] Allergy (Severe, Verified 11/12/17 20:23) Anaphylaxis tramadol [Tramadol] Allergy (Severe, Verified 11/12/17 20:23) Anaphylaxis ziprasidone HCl [From Geodon] Allergy (Severe, Verified 11/12/17 20:23) Anaphylaxis ziprasidone mesylate [From Geodon] Allergy (Severe, Verified 11/12/17 20:23) Anaphylaxis aluminum hydroxide [From Maalox] Allergy (Verified 11/12/17 20:23) Anaphylaxis calcium carbonate [From Maalox] Allergy (Verified 11/12/17 20:23) Anaphylaxis diphenhydramine [From Benadryl Allergy] Allergy (Verified 11/12/17 20:23) ibuprofen [From Motrin] Allergy (Verified 11/12/17 20:23) ketorolac [From Toradol] Allergy (Verified 11/12/17 20:23) Magnesium Hydroxide [From Maalox] Allergy (Verified 11/12/17 20:23) Anaphylaxis simethicone [From Maalox] Allergy (Verified 11/12/17 20:23) Anaphylaxis seafood Allergy (Uncoded 11/12/17 20:23) Past Medical History - Social History Frequency of alcohol use: Social Drug Abuse: Marijuana - Past Medical History Cardiac Medical History: Reports: Hx Hypertension Pulmonary Medical History: Reports: Hx Asthma, Hx Bronchitis, Hx Pneumonia Neurological Medical History: Reports: Hx Seizures Renal/ Medical History: Reports: Hx Ovarian Cysts. Denies: Hx Peritoneal Dialysis GI Medical History: Reports: Hx Gastroesophageal Reflux Disease Musculoskeltal Medical History: Reports Hx Arthritis, Reports Hx Musculoskeletal Deformity, Reports Hx Musculoskeletal Trauma Psychiatric Medical History: Reports: Hx Anxiety, Hx Attention Deficit Hyperactivity Disorder, Hx Bipolar Disorder, Hx Borderline Personality Disorder , Hx Depression, Hx Post Traumatic Stress Disorder Traumatic Medical History: Reports: Hx Fractures - Ankle wrist shoulder and ribs Past Surgical History: Reports: Hx Appendectomy, Hx Section, Hx Oral Surgery, Hx Tonsillectomy, Hx Tubal Ligation - Immunizations Immunizations up to date: Yes Hx Diphtheria, Pertussis, Tetanus Vaccination: Yes - [id number] History of Influenza Vaccine for 05/2017 - 10/2017 Season: Yes Review of Systems - Review of Systems Constitutional: Other - Spotting cramping nausea vomiting Physical Exam - Vital signs Vitals: Temp Pulse Resp BP Pulse Ox 97.8 F 78 16 128/69 H 100 11/12/17 20:28 11/12/17 20:28 11/12/17 20:28 11/12/17 20:28 11/12/17 20:28 - Respiratory Respiratory status: No respiratory distress Chest status: Nontender Breath sounds: Normal Chest palpation: Normal Course - Re-evaluation Re-evalutation: 11/12/17 20:41 I have greeted and performed a rapid initial assessment of this patient. A comprehensive ED assessment and evaluation of the patient, analysis of test results and completion of the medical decision making process will be conducted by additional ED providers. - Vital Signs Vital signs: Temp Pulse Resp BP Pulse Ox 97.8 F 78 16 128/69 H 100 11/12/17 20:28 11/12/17 20:28 11/12/17 20:28 11/12/17 20:28 11/12/17 20:28
[2017-11-12 20:52] LABS: APPEARANCE,URINE SLIGHTLY-CLOUDY; BILIRUBIN,URINE NEGATIVE (NEGATIVE); COLOR,URINE YELLOW; GLUCOSE, URINE NEGATIVE (NEGATIVE); KETONES,URINE NEGATIVE (NEGATIVE); LEUKOCYTE ESTERASE,URINE SMALL (NEGATIVE); NITRITE,URINE NEGATIVE (NEGATIVE); PROTEIN,URINE NEGATIVE (NEGATIVE); URINE SPECIFIC GRAVITY 1.026; UROBILINOGEN,URINE NEGATIVE mg/dL (<2.0)
[2017-11-12 22:33] LABS: ABSOLUTE EOSINOPHILS # (AUTO) 0.1 10^3/uL (0.0-0.6); ABSOLUTE LYMPHOCYTES (AUTO) 3.2 10^3/uL (0.5-4.7); ABSOLUTE MONOCYTES (AUTO) 0.6 10^3/uL (0.1-1.4); ABSOLUTE NEUT (AUTO) 4.4 10^3/uL (1.7-8.2); BASOPHILS % (AUTO) 0.5 % (0-2); EOSINOPHILS % (AUTO) 0.7 % (0-6); HEMATOCRIT 36.5 % (36.0-47.0); HEMOGLOBIN 12.4 g/dL (12.0-15.5); LYMPHOCYTES % (AUTO) 38.6 % (13-45); MEAN CORPUSCULAR HEMOGLOBIN 31.1 pg (27.0-33.4); MEAN CORPUSCULAR VOLUME 92 fl (80-97); MONOCYTES % (AUTO) 7.6 % (3-13); PLATELET COUNT 229 10^3/uL (150-450); RED BLOOD COUNT 3.99 10^6/uL (3.72-5.28); RED CELL DISTRIBUTION WIDTH 12.2 % (11.5-14.0); SEGMENTED NEUTROPHILS % (AUTO) 52.6 % (42-78); TOTAL CELLS COUNTED % (AUTO) 100 %; WHITE BLOOD COUNT 8.3 10^3/uL (4.0-10.5)
[2017-11-12 22:52] LABS: ALANINE AMINOTRANSFERASE 40 U/L (9-52); ALBUMIN 4.5 g/dL (3.5-5.0); ALKALINE PHOSPHATASE 45 U/L (38-126); ANION GAP 9 (5-19); ASPARTATE AMINO TRANSFERASE 18 U/L (14-36); BLOOD UREA NITROGEN 16 mg/dL (7-20); CALCIUM 9.7 mg/dL (8.4-10.2); CARBON DIOXIDE 24 mmol/L (22-30); CHLORIDE 108 mmol/L (98-107); GLUCOSE 98 mg/dL (75-110); SODIUM 140.8 mmol/L (137-145); TOTAL PROTEIN 6.7 g/dL (6.3-8.2)
[2017-11-12 23:10] LABS: BILIRUBIN,TOTAL < 0.1 mg/dL (0.2-1.3)
--- NOTE | 2017-11-12 23:50 | ER Document Report ---
ED General - General Chief Complaint: Abdominal Pain Stated Complaint: CRAMPS Time Seen by Provider: 11/12/17 20:38 Mode of Arrival: Ambulatory Information source: Patient Notes: 27-year-old female with abdominal cramping, intermittent vaginal bleeding. Patient does have a history of a bilateral tubal ligation but she is concerned she may be . She denies fever, nausea, vomiting, diarrhea. TRAVEL OUTSIDE OF THE [place] IN LAST 30 DAYS: No - HPI Onset: Last week Onset/Duration: Gradual Quality of pain: No pain, Cramping Severity: None Pain Level: Denies Associated symptoms: denies: Chest pain, Fever, Shortness of breath Exacerbated by: Denies Relieved by: Denies Similar symptoms previously: Yes Recently seen / treated by doctor: Yes - Related Data Allergies/Adverse Reactions: alprazolam [From Xanax] Allergy (Severe, Verified 11/12/17 20:23) CHEMICAL REACTION RESULTING IN SEIZURE amoxicillin [Amoxicillin] Allergy (Severe, Verified 11/12/17 20:23) Difficulty breathing Amphetamine Aspartate * [From Adderall] Allergy (Severe, Verified 11/12/17 20:23 ) Anaphylaxis amphetamine sulfate [From Adderall] Allergy (Severe, Verified 11/12/17 20:23) Anaphylaxis bupropion HCl [From Wellbutrin] Allergy (Severe, Verified 11/12/17 20:23) Anaphylaxis cephalexin [Cephalexin] Allergy (Severe, Verified 11/12/17 20:23) Anaphylaxis dextroamphetamine [From Adderall] Allergy (Severe, Verified 11/12/17 20:23) Anaphylaxis latex [Latex] Allergy (Severe, Verified 11/12/17 20:23) Anaphylaxis naproxen [Naproxen] Allergy (Severe, Verified 11/12/17 20:23) Anaphylaxis quetiapine fumarate [From Seroquel] Allergy (Severe, Verified 11/12/17 20:23) Anaphylaxis sertraline HCl [From Zoloft] Allergy (Severe, Verified 11/12/17 20:23) Anaphylaxis shellfish derived [Shellfish Derived] Allergy (Severe, Verified 11/12/17 20:23) Anaphylaxis tramadol [Tramadol] Allergy (Severe, Verified 11/12/17 20:23) Anaphylaxis ziprasidone HCl [From Geodon] Allergy (Severe, Verified 11/12/17 20:23) Anaphylaxis ziprasidone mesylate [From Geodon] Allergy (Severe, Verified 11/12/17 20:23) Anaphylaxis aluminum hydroxide [From Maalox] Allergy (Verified 11/12/17 20:23) Anaphylaxis calcium carbonate [From Maalox] Allergy (Verified 11/12/17 20:23) Anaphylaxis diphenhydramine [From Benadryl Allergy] Allergy (Verified 11/12/17 20:23) ibuprofen [From Motrin] Allergy (Verified 11/12/17 20:23) ketorolac [From Toradol] Allergy (Verified 11/12/17 20:23) Magnesium Hydroxide [From Maalox] Allergy (Verified 11/12/17 20:23) Anaphylaxis simethicone [From Maalox] Allergy (Verified 11/12/17 20:23) Anaphylaxis seafood Allergy (Uncoded 11/12/17 20:23) Past Medical History - General Information source: Patient - Social History Smoking Status: Current Some Day Smoker Cigarette use (# per day): Yes - Half pack per day Chew tobacco use (# tins/day): No Frequency of alcohol use: Social Drug Abuse: Marijuana Family History: Arthritis, CAD, CVA, DM, Hyperlipidemia, Hypertension, Malignancy, Thyroid Disfunction Patient has suicidal ideation: No Patient has homicidal ideation: No - Past Medical History Cardiac Medical History: Reports: Hx Hypertension Pulmonary Medical History: Reports: Hx Asthma, Hx Bronchitis, Hx Pneumonia Neurological Medical History: Reports: Hx Seizures Renal/ Medical History: Reports: Hx Ovarian Cysts. Denies: Hx Peritoneal Dialysis GI Medical History: Reports: Hx Gastroesophageal Reflux Disease Musculoskeltal Medical History: Reports Hx Arthritis, Reports Hx Musculoskeletal Deformity, Reports Hx Musculoskeletal Trauma Psychiatric Medical History: Reports: Hx Anxiety, Hx Attention Deficit Hyperactivity Disorder, Hx Bipolar Disorder, Hx Borderline Personality Disorder , Hx Depression, Hx Post Traumatic Stress Disorder Traumatic Medical History: Reports: Hx Fractures - Ankle wrist shoulder and ribs Past Surgical History: Reports: Hx Appendectomy, Hx Section, Hx Oral Surgery, Hx Tonsillectomy, Hx Tubal Ligation - Immunizations Immunizations up to date: Yes Hx Diphtheria, Pertussis, Tetanus Vaccination: Yes - [id number] Hx Pneumococcal Vaccination: 08/13/13 Review of Systems - Review of Systems Constitutional: denies: Chills, Fever EENT: No symptoms reported Cardiovascular: No symptoms reported Respiratory: No symptoms reported Gastrointestinal: No symptoms reported Genitourinary: See HPI Female Genitourinary: No symptoms reported Musculoskeletal: No symptoms reported Skin: No symptoms reported Hematologic/Lymphatic: No symptoms reported Neurological/Psychological: No symptoms reported Physical Exam - Vital signs Vitals: Temp Pulse Resp BP Pulse Ox 97.8 F 78 16 128/69 H 100 11/12/17 20:28 11/12/17 20:28 11/12/17 20:28 11/12/17 20:28 11/12/17 20:28 Notes: Physical exam: GENERAL: 27-year-old female, alert and oriented 3, no acute distress HEAD: Atraumatic, normocephalic. EYES: Pupils equal round and reactive to light, extraocular movements intact, sclera anicteric, conjunctiva are normal. ENT: TMs normal, nares patent, oropharynx clear without exudates. Moist mucous membranes. NECK: Normal range of motion, supple without obvious mass or JVD. LUNGS: Breath sounds clear to auscultation bilaterally and equal. No wheezes rales or rhonchi. HEART: Regular rate and rhythm without murmurs, rubs or gallops. ABDOMEN: Soft, normoactive bowel sounds. No tenderness to palpation. No guarding, no rebound. No masses appreciated. EXTREMITIES: Normal range of motion, no pitting or edema. No clubbing or cyanosis. NEUROLOGICAL: Cranial nerves II through XII grossly intact. Normal speech, moving all extremities. PSYCH: Normal mood, normal affect. SKIN: Warm, Dry, normal turgor, no rashes or lesions noted. Course - Vital Signs Vital signs: Temp Pulse Resp BP Pulse Ox 97.8 F 78 16 128/69 H 100 11/12/17 20:28 11/12/17 20:28 11/12/17 20:28 11/12/17 20:28 11/12/17 20:28 - Laboratory Result Diagrams: 11/12/17 22:20 11/12/17 22:20 Laboratory results interpreted by me: 11/12/17 11/12/17 20:30 22:20 Chloride 108 H Total Bilirubin < 0.1 L Urine Blood SMALL H Ur Leukocyte Esterase SMALL H Discharge - Discharge Clinical Impression: Abdominal cramping, Irregular menstruation Clinical Impression: (Ruled Out): Irregular. Condition: Stable Disposition: HOME, SELF-CARE Additional Instructions: As we discussed, the labs look quite good today. The test was negative. Thank you for choosing [facility] for your care. The examination and treatment you have received in the Emergency Department today has been rendered on an emergency basis only and is not intended to be a substitute for complete medical care. You should contact your doctor as it is important that she/he examine you for any new or remaining problems. If given a copy of any lab tests or radiology reports, please bring them with you when you see your physician. If your problem worsens or new symptoms appear and you are unable to arrange prompt follow-up care, return to the Emergency Department. Any other instructions: No changes in activity. Follow-up with your primary care doctor: Bring a copy of today's labs with you when you see your doctor. Return to the emergency room for any problems. Referrals: SUSANNE SCHNEIDER MD [Primary Care Provider] - Follow up as needed
[2017-11-13 00:24] VITALS: BP 124/62
== END 2017-11-13 00:24 | disposition home or self-care (01) ==
LOC: ER 20:22
DX: R10.9 Unspecified abdominal pain (principal); N92.6 Irregular menstruation, unspecified; F17.210 Nicotine dependence, cigarettes, uncomplicated; I10 Essential (primary) hypertension; J45.909 Unspecified asthma, uncomplicated; Z98.51 Tubal ligation status; Z88.0 Allergy status to penicillin; Z88.6 Allergy status to analgesic agent; Z87.892 Personal history of anaphylaxis; Z88.8 Allergy status to other drugs, medicaments and biological substances; Z88.1 Allergy status to other antibiotic agents; Z91.040 Latex allergy status; Z91.013 Allergy to seafood; Z88.5 Allergy status to narcotic agent; Z98.61 Coronary angioplasty status; Z90.49 Acquired absence of other specified parts of digestive tract; Z87.19 Personal history of other diseases of the digestive system
CPT/HCPCS: 36415; 80053; 81001; 81025; 84702; 85025; 99284

== ENCOUNTER 2017-11-19 14:10 | Emergency (ER) | payer MEDICAID ==
[2017-11-19] MEDS ORDERED: ACETAMINOPHEN 325 MG TABLET PO ONE (14:12)
[2017-11-19 14:30] VITALS: BP 109/71
--- NOTE | 2017-11-19 14:45 | ER Document Report ---
HPI - HPI Patient complains to provider of: Left ankle pain Pain Level: 5 Context: patient is a 27-year-old female presents emergency department with a chief complaint of fall and rolling her left ankle prior to arrival. She admits to pain in the lateral aspect of the left ankle. Worse with ambulation and hurts to bear weight on it. States she took Tylenol prior to arrival - REPRODUCTIVE Reproductive: DENIES: : Past Medical History - Social History Smoking Status: Never Smoker Family History: Arthritis, CAD, CVA, DM, Hyperlipidemia, Hypertension, Malignancy, Thyroid Disfunction - Past Medical History Cardiac Medical History: Reports: Hx Hypertension Pulmonary Medical History: Reports: Hx Asthma, Hx Bronchitis, Hx Pneumonia Neurological Medical History: Reports: Hx Seizures Renal/ Medical History: Reports: Hx Ovarian Cysts. Denies: Hx Peritoneal Dialysis GI Medical History: Reports: Hx Gastroesophageal Reflux Disease Musculoskeltal Medical History: Reports Hx Arthritis, Reports Hx Musculoskeletal Deformity, Reports Hx Musculoskeletal Trauma Psychiatric Medical History: Reports: Hx Anxiety, Hx Attention Deficit Hyperactivity Disorder, Hx Bipolar Disorder, Hx Borderline Personality Disorder , Hx Depression, Hx Post Traumatic Stress Disorder Traumatic Medical History: Reports: Hx Fractures - Ankle wrist shoulder and ribs Past Surgical History: Reports: Hx Appendectomy, Hx Section, Hx Oral Surgery, Hx Tonsillectomy, Hx Tubal Ligation - Immunizations Immunizations up to date: Yes Hx Diphtheria, Pertussis, Tetanus Vaccination: Yes - [id number] Hx Pneumococcal Vaccination: 08/13/13 Vertical Provider Document - CONSTITUTIONAL Agree With Documented VS: Yes Notes: PHYSICAL EXAM GENERAL: Alert, interacts well. HEAD: Normocephalic, atraumatic. EXTREMITIES: Moves all 4 extremities spontaneously. Left lateral ankle with lateral swelling, mild ecchymosis. dorsalis pedis pulses 2/4 bilaterally. No cyanosis. NEUROLOGICAL: Alert and oriented x4. Normal speech. PSYCH: Normal affect, normal mood. SKIN: Warm, dry, normal turgor. No rashes or lesions noted. - INFECTION CONTROL TRAVEL OUTSIDE OF THE [place] IN LAST 30 DAYS: No Course - Re-evaluation Re-evalutation: 11/19/17 15:35 Patient is a 27-year-old female hemodynamic stable, no acute distress and afebrile. Presentation is consistent with a lateral ankle sprain. No evidence of a septic joint, gout flare, dislocation, or fracture on exam and imaging. Vitals wnl. At this time, I do not see an indication for labs or further imaging. Will discharge with conservative measures, return precautions, and follow-up recommendations. - Vital Signs Vital signs: Temp Pulse Resp BP Pulse Ox 97.8 F 76 18 109/71 100 11/19/17 14:28 11/19/17 14:28 11/19/17 14:28 11/19/17 14:28 11/19/17 14:28 - Diagnostic Test Radiology reviewed: Image reviewed, Reports reviewed Discharge - Discharge Clinical Impression: Left ankle injury Qualifiers: Encounter type: initial encounter Qualified Code(s): S99.912A - Unspecified injury of left ankle, initial encounter Condition: Good Disposition: HOME, SELF-CARE Instructions: Sprained Ankle ([facility]), Ankle Exercise Program ([facility]), Dl Wrap ([facility] ), Ice & Elevation ([facility]), Use of Crutches ([facility]), Acetaminophen Referrals: SUSANNE SCHNEIDER MD [NO LOCAL MD] - Follow up in 3-5 days
--- NOTE | 2017-11-19 15:22 | RADIOLOGY REPORT (SQ) ---
EXAM DESCRIPTION: ANKLE LEFT COMPLETE COMPLETED DATE/TIME: 11/19/2017 3:10 pm REASON FOR STUDY: twisted her ankle, pain COMPARISON: 2014. NUMBER OF VIEWS: Three views left ankle. LIMITATIONS: None. FINDINGS: Normal bone density. No displaced fracture. Maintained mortise. Marked lateral soft tis petra swelling. No joint effusion suggested. OTHER: No other significant finding. IMPRESSION: Lateral soft tissue swelling. TECHNICAL DOCUMENTATION: JOB ID: [id number] Reading location - IP/workstation name: [email or web address]
[2017-11-19] MEDS ORDERED: ACETAMINOPHEN WITH CODEINE #3 TABLET PO ONE (15:36)
== END 2017-11-19 15:54 | disposition home or self-care (01) ==
LOC: ER 14:10
DX: S99.912A Unspecified injury of left ankle, initial encounter (principal); W19.XXXA Unspecified fall, initial encounter; I10 Essential (primary) hypertension; J45.909 Unspecified asthma, uncomplicated; Z87.81 Personal history of (healed) traumatic fracture
CPT/HCPCS: 99283; 73610; J3490

== ENCOUNTER 2017-11-20 00:35 | Emergency (ER) | payer MEDICAID ==
[2017-11-20 00:50] VITALS: BP 108/67
--- NOTE | 2017-11-20 00:58 | ER Document Report ---
HPI - HPI Pain Level: 5 Context: Patient is a 27-year-old female who returns emergency department complaining of left lateral ankle pain.. She was seen previously here today by myself and diagnosed with a lateral ankle sprain without evidence of fracture. Patient states that she did not want to wear the Dl wrap because it was irritating her ankle. She is admitting to pain. Patient is allergic to naproxen, tramadol, Motrin. She is also had issues with narcotics in the past but she states that she can take Tylenol with codeine, Percocet and Vicodin - REPRODUCTIVE Reproductive: DENIES: : Past Medical History - Social History Smoking Status: Never Smoker Family History: Arthritis, CAD, CVA, DM, Hyperlipidemia, Hypertension, Malignancy, Thyroid Disfunction - Past Medical History Cardiac Medical History: Reports: Hx Hypertension Pulmonary Medical History: Reports: Hx Asthma, Hx Bronchitis, Hx Pneumonia Neurological Medical History: Reports: Hx Seizures Renal/ Medical History: Reports: Hx Ovarian Cysts. Denies: Hx Peritoneal Dialysis GI Medical History: Reports: Hx Gastroesophageal Reflux Disease Musculoskeltal Medical History: Reports Hx Arthritis, Reports Hx Musculoskeletal Deformity, Reports Hx Musculoskeletal Trauma Psychiatric Medical History: Reports: Hx Anxiety, Hx Attention Deficit Hyperactivity Disorder, Hx Bipolar Disorder, Hx Borderline Personality Disorder , Hx Depression, Hx Post Traumatic Stress Disorder Traumatic Medical History: Reports: Hx Fractures - Ankle wrist shoulder and ribs Past Surgical History: Reports: Hx Appendectomy, Hx Section, Hx Oral Surgery, Hx Tonsillectomy, Hx Tubal Ligation - Immunizations Immunizations up to date: Yes Hx Diphtheria, Pertussis, Tetanus Vaccination: Yes - [id number] Hx Pneumococcal Vaccination: 08/13/13 Vertical Provider Document - CONSTITUTIONAL Agree With Documented VS: Yes Notes: PHYSICAL EXAM GENERAL: Alert, interacts well. EXTREMITIES: Left lateral ankle swelling without any evidence of worsening edema , ecchymosis. Patient able to flex and extend her ankle. Sensation intact distal to ankle injury. Capillary refill less than 2 seconds in bilateral lower extremity digits. dorsalis pedis pulses 2/4 bilaterally. No cyanosis. NEUROLOGICAL: Alert and oriented x4. Normal speech. PSYCH: Normal affect, normal mood. SKIN: Warm, dry, normal turgor. No rashes or lesions noted. - INFECTION CONTROL TRAVEL OUTSIDE OF THE [place] IN LAST 30 DAYS: No Course - Re-evaluation Re-evalutation: Patient is a 27-year-old female is hemodynamically stable, no acute distress and afebrile. Discussed with patient that we cannot prescribe narcotics for her injury as well as her complicated allergy history. Offered patient that we can immobilize her ankle in a splint. Patient has accepted this. Discussed with her to follow-up with [facility] as indicated for repeat imaging in 7-10 days. Patient agrees with plan. - Vital Signs Vital signs: Temp Pulse Resp BP Pulse Ox 98.0 F 88 18 108/67 98 11/20/17 00:44 11/20/17 00:44 11/20/17 00:44 11/20/17 00:44 11/20/17 00:44 Procedures - Immobilization Left Ankle Pre-Proc Neuro Vasc Exam: Normal Immobilizer type: Ankle stirrup Performed by: PCT Post-Proc Neuro Vasc Exam: Normal, Unchanged from pre-exam Alignment checked and good: Yes Discharge - Discharge Clinical Impression: Left ankle injury Qualifiers: Encounter type: subsequent encounter Qualified Code(s): S99.912D - Unspecified injury of left ankle, subsequent encounter Condition: Good Disposition: HOME, SELF-CARE Instructions: Use of Crutches ([facility]), Splint Precautions ([facility]), Sprained Ankle ( [facility]) Referrals: [facility] [Provider Group] - Follow up as needed (7-10 days)
[2017-11-20] MEDS ORDERED: ACETAMINOPHEN 325 MG TABLET PO ONE (01:30)
== END 2017-11-20 01:47 | disposition home or self-care (01) ==
LOC: ER 00:35
PROC: 2W3RX1Z Immobilization of Left Lower Leg using Splint (ICD-10-PCS; principal; 2017-11-20)
DX: S99.912A Unspecified injury of left ankle, initial encounter (principal); M25.572 Pain in left ankle and joints of left foot; I10 Essential (primary) hypertension; X58.XXXA Exposure to other specified factors, initial encounter
CPT/HCPCS: 99283; 29515; J3490

== ENCOUNTER 2018-02-07 01:59 | Emergency (ER) | payer SELFPAY ==
[2018-02-07] MEDS ORDERED: ONDANSETRON 4 MG TAB.RAPDIS PO ONE (03:44)
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
[2018-02-07 04:41] VITALS: BP 123/91
[2018-02-07] MEDS ORDERED: BACITRACIN OPH OINT 3.5 GM EXT SCH (10:00)
== END 2018-02-07 04:41 | disposition home or self-care (01) ==
LOC: ER 01:59
DX: L55.9 Sunburn, unspecified (principal); R11.2 Nausea with vomiting, unspecified; I10 Essential (primary) hypertension; J45.909 Unspecified asthma, uncomplicated; Z88.6 Allergy status to analgesic agent; Z88.0 Allergy status to penicillin; Z87.892 Personal history of anaphylaxis; Z88.8 Allergy status to other drugs, medicaments and biological substances; Z88.1 Allergy status to other antibiotic agents; Z91.041 Radiographic dye allergy status; Z91.013 Allergy to seafood; Z88.5 Allergy status to narcotic agent; Z87.19 Personal history of other diseases of the digestive system
CPT/HCPCS: 99282; S0119; J3490

== ENCOUNTER 2018-02-16 21:29 | Emergency (ER) | payer SELFPAY ==
[2018-02-16 21:51] LABS: APPEARANCE,URINE SLIGHTLY-CLOUDY; BILIRUBIN,URINE NEGATIVE (NEGATIVE); COLOR,URINE YELLOW; GLUCOSE, URINE NEGATIVE (NEGATIVE); KETONES,URINE NEGATIVE (NEGATIVE); LEUKOCYTE ESTERASE,URINE TRACE (NEGATIVE); NITRITE,URINE NEGATIVE (NEGATIVE); PROTEIN,URINE NEGATIVE (NEGATIVE); URINE SPECIFIC GRAVITY 1.023; UROBILINOGEN,URINE NEGATIVE mg/dL (<2.0)
[2018-02-16] MEDS ORDERED: ONDANSETRON 4 MG TAB.RAPDIS PO ONE (22:31)
[2018-02-16] MEDS ORDERED: HYOSCYAMINE SULFATE 0.125 MG TABLET PO ONE (22:32)
--- NOTE | 2018-02-16 22:32 | ER Document Report ---
ED General - General Chief Complaint: Abdominal Pain Stated Complaint: ABDOMINAL PAIN Time Seen by Provider: 02/16/18 21:50 Notes: Patient is a 27 year old female without chronic medical problems who presents with several days of upper abdominal pain as well as intermittent nausea and vomiting. The patient states that she became concerned when she vomited up eggs today. Symptoms became much worse after she ate sloppy [employer] last night. She has been taking famotidine with minimal relief of her symptoms. She has been able to tolerate fluids without difficulty. She has not seen her general doctor regarding today's concerns. She denies any lower abdominal pain, diarrhea, melena or hematochezia. No chest pain or shortness of breath. No fever or constitutional symptoms. TRAVEL OUTSIDE OF THE [place] IN LAST 30 DAYS: No - Related Data Allergies/Adverse Reactions: alprazolam [From Xanax] Allergy (Severe, Verified 02/07/18 02:15) CHEMICAL REACTION RESULTING IN SEIZURE amoxicillin [Amoxicillin] Allergy (Severe, Verified 02/07/18 02:15) Difficulty breathing Amphetamine Aspartate * [From Adderall] Allergy (Severe, Verified 02/07/18 02:15 ) Anaphylaxis amphetamine sulfate [From Adderall] Allergy (Severe, Verified 02/07/18 02:15) Anaphylaxis bupropion HCl [From Wellbutrin] Allergy (Severe, Verified 02/07/18 02:15) Anaphylaxis cephalexin [Cephalexin] Allergy (Severe, Verified 02/07/18 02:15) Anaphylaxis dextroamphetamine [From Adderall] Allergy (Severe, Verified 02/07/18 02:15) Anaphylaxis latex [Latex] Allergy (Severe, Verified 02/07/18 02:15) Anaphylaxis quetiapine fumarate [From Seroquel] Allergy (Severe, Verified 02/07/18 02:15) Anaphylaxis sertraline HCl [From Zoloft] Allergy (Severe, Verified 02/07/18 02:15) Anaphylaxis shellfish derived [Shellfish Derived] Allergy (Severe, Verified 02/07/18 02:15) Anaphylaxis tramadol [Tramadol] Allergy (Severe, Verified 02/07/18 02:15) Anaphylaxis ziprasidone HCl [From Geodon] Allergy (Severe, Verified 02/07/18 02:15) Anaphylaxis ziprasidone mesylate [From Geodon] Allergy (Severe, Verified 02/07/18 02:15) Anaphylaxis aluminum hydroxide [From Maalox] Allergy (Verified 02/07/18 02:15) Anaphylaxis calcium carbonate [From Maalox] Allergy (Verified 02/07/18 02:15) Anaphylaxis diphenhydramine [From Benadryl Allergy] Allergy (Verified 02/07/18 02:15) ibuprofen [From Motrin] Allergy (Verified 02/07/18 02:15) ketorolac [From Toradol] Allergy (Verified 02/07/18 02:15) Magnesium Hydroxide [From Maalox] Allergy (Verified 02/07/18 02:15) Anaphylaxis simethicone [From Maalox] Allergy (Verified 02/07/18 02:15) Anaphylaxis seafood Allergy (Uncoded 02/07/18 02:15) Past Medical History - General Information source: Patient - Social History Smoking Status: Never Smoker Frequency of alcohol use: None Drug Abuse: None Lives with: Spouse/Significant other Family History: Arthritis, CAD, CVA, DM, Hyperlipidemia, Hypertension, Malignancy, Thyroid Disfunction Patient has suicidal ideation: No Patient has homicidal ideation: No - Past Medical History Cardiac Medical History: Reports: Hx Hypertension Pulmonary Medical History: Reports: Hx Asthma, Hx Bronchitis, Hx Pneumonia Neurological Medical History: Reports: Hx Seizures Renal/ Medical History: Reports: Hx Ovarian Cysts. Denies: Hx Peritoneal Dialysis GI Medical History: Reports: Hx Gastroesophageal Reflux Disease Musculoskeltal Medical History: Reports Hx Arthritis, Reports Hx Musculoskeletal Deformity, Reports Hx Musculoskeletal Trauma Psychiatric Medical History: Reports: Hx Anxiety, Hx Attention Deficit Hyperactivity Disorder, Hx Bipolar Disorder, Hx Borderline Personality Disorder , Hx Depression, Hx Post Traumatic Stress Disorder Traumatic Medical History: Reports: Hx Fractures - Ankle wrist shoulder and ribs Past Surgical History: Reports: Hx Appendectomy, Hx Section, Hx Oral Surgery, Hx Tonsillectomy, Hx Tubal Ligation - Immunizations Immunizations up to date: Yes Hx Diphtheria, Pertussis, Tetanus Vaccination: Yes - [id number] Hx Pneumococcal Vaccination: 08/13/13 Review of Systems - Review of Systems Notes: Constitutional: Negative for fever. HENT: Negative for sore throat. Eyes: Negative for visual changes. Cardiovascular: Negative for chest pain. Respiratory: Negative for shortness of breath. Gastrointestinal: Positive for abdominal pain and vomiting Genitourinary: Negative for dysuria. Musculoskeletal: Negative for back pain. Skin: Negative for rash. Neurological: Negative for headaches, weakness or numbness. 10 point ROS negative except as marked above and in HPI. Physical Exam - Vital signs Vitals: Temp Pulse Resp BP Pulse Ox 98.3 F 85 16 128/76 H 97 02/16/18 21:34 02/16/18 21:34 02/16/18 21:34 02/16/18 21:34 02/16/18 21:34 Interpretation: Normal Notes: PHYSICAL EXAMINATION: GENERAL: Well-appearing, well-nourished and in no acute distress. HEAD: Atraumatic, normocephalic. EYES: Pupils equal round and reactive to light, extraocular movements intact, sclera anicteric, conjunctiva are normal. ENT: nares patent, oropharynx clear without exudates. Moist mucous membranes. NECK: Normal range of motion, supple without lymphadenopathy LUNGS: Breath sounds clear to auscultation bilaterally and equal. No wheezes rales or rhonchi. HEART: Regular rate and rhythm without murmurs ABDOMEN: Soft, nontender, normoactive bowel sounds. No guarding, no rebound. No masses appreciated. EXTREMITIES: Normal range of motion, no pitting or edema. No cyanosis. NEUROLOGICAL: No focal neurological deficits. Moves all extremities spontaneously and on command. PSYCH: Normal mood, normal affect. SKIN: Warm, Dry, normal turgor, no rashes or lesions noted. Course - Re-evaluation Re-evalutation: 02/16/18 22:31 Patient presents with epigastric abdominal pain with associated reflux symptoms most consistent with likely gastritis. Patient has no focal abdominal tenderness on examination. Right upper quadrant ultrasound does not demonstrate any evidence of acute cholecystitis or cholelithiasis. Lipase is normal. No LFT changes. Based on history and exam, I do not suspect ACS, pulmonary embolus, SBO, mesenteric ischemia, acute pancreatitis, biliary pathology, or an abdominal aortic dissection. Although ultrasound does demonstrate possible right-sided hydronephrosis patient's clinical history is not all consistent with an acute nephrolithiasis. At this time will discharge with return precautions and follow-up recommendations. Verbal discharge instructions given a the bedside and opportunity for questions given. Medication warnings reviewed. Patient is in agreement with this plan and has verbalized understanding of return precautions and the need for primary care follow-up in the next 24-72 hours. 02/17/18 01:26 - Vital Signs Vital signs: Temp Pulse Resp BP Pulse Ox 98.7 F 65 16 108/56 L 95 02/17/18 01:39 02/17/18 01:39 02/17/18 01:39 02/17/18 01:39 02/17/18 01:39 - Laboratory Result Diagrams: 02/16/18 23:16 02/16/18 23:16 Laboratory results interpreted by me: 02/16/18 02/16/18 02/16/18 21:30 23:16 23:16 RDW 14.3 H Chloride 111 H Carbon Dioxide 20 L Creatinine 0.43 L Alkaline Phosphatase 32 L Urine Blood SMALL H Ur Leukocyte Esterase TRACE H - Diagnostic Test Radiology reviewed: Reports reviewed Discharge - Discharge Clinical Impression: Upper abdominal pain Nausea and vomiting Qualifiers: Vomiting type: unspecified Vomiting Intractability: non-intractable Qualified Code(s): R11.2 - Nausea with vomiting, unspecified Condition: Good Disposition: HOME, SELF-CARE Additional Instructions: Your symptoms appear to be most consistent with stomach or upper intestinal irritation. Please begin taking famotidine 40 mg in the morning and 40 mg at night. This medicine can be purchased directly [email or web address]. You may also take medicine such as Pepto-Bismol or Tums to assist with your pain. Please return to emergency department immediately if you have worsening of your pain, shortness of breath, vomiting, become unable to exert yourself due to pain or difficulty breathing, you pass out, or have any pain that radiates into your arms, jaw, or back. Please also return if you have any additional symptoms that are concerning to you. As we have discussed, the most important thing is lifestyle changes. You need to avoid smoking, sodas, tea, coffee, alcohol, spicy foods, and acidic foods such as citrus fruits, tomato based products, berries, and most fruit juices. Referrals: RENETTA,NO [Primary Care Provider] - Follow up as needed
[2018-02-16 23:25] LABS: ABSOLUTE EOSINOPHILS # (AUTO) 0.1 10^3/uL (0.0-0.6); ABSOLUTE LYMPHOCYTES (AUTO) 2.5 10^3/uL (0.5-4.7); ABSOLUTE MONOCYTES (AUTO) 0.6 10^3/uL (0.1-1.4); ABSOLUTE NEUT (AUTO) 3.8 10^3/uL (1.7-8.2); BASOPHILS % (AUTO) 0.4 % (0-2); EOSINOPHILS % (AUTO) 1.1 % (0-6); HEMATOCRIT 37.5 % (36.0-47.0); HEMOGLOBIN 13.2 g/dL (12.0-15.5); LYMPHOCYTES % (AUTO) 35.6 % (13-45); MEAN CORPUSCULAR HEMOGLOBIN 30.7 pg (27.0-33.4); MEAN CORPUSCULAR HGB CONC 35.2 g/dL (32.0-36.0); MEAN CORPUSCULAR VOLUME 87 fl (80-97); MONOCYTES % (AUTO) 8.4 % (3-13); PLATELET COUNT 216 10^3/uL (150-450); RED CELL DISTRIBUTION WIDTH 14.3 % (11.5-14.0); SEGMENTED NEUTROPHILS % (AUTO) 54.5 % (42-78); TOTAL CELLS COUNTED % (AUTO) 100 %
[2018-02-16 23:45] LABS: ALANINE AMINOTRANSFERASE 23 U/L (9-52); ALBUMIN 4.2 g/dL (3.5-5.0); ALKALINE PHOSPHATASE 32 U/L (38-126); ANION GAP 13 (5-19); ASPARTATE AMINO TRANSFERASE 16 U/L (14-36); BILIRUBIN,DIRECT 0.4 mg/dL (0.0-0.4); BILIRUBIN,TOTAL 0.5 mg/dL (0.2-1.3); BLOOD UREA NITROGEN 12 mg/dL (7-20); CALCIUM 9.6 mg/dL (8.4-10.2); CARBON DIOXIDE 20 mmol/L (22-30); CHLORIDE 111 mmol/L (98-107); GLUCOSE 88 mg/dL (75-110); LIPASE 166.7 U/L (23-300); POTASSIUM 4.3 mmol/L (3.6-5.0); SODIUM 143.5 mmol/L (137-145); TOTAL PROTEIN 7.1 g/dL (6.3-8.2)
--- NOTE | 2018-02-17 01:11 | RADIOLOGY REPORT (SQ) ---
EXAM DESCRIPTION: 02/17/2018 12:09 AM CDT CLINICAL HISTORY: 27 years, Female, upper abdominal pain COMPARISON: None. TECHNIQUE: Utilizing a curved array transducer, real-time ultrasound evaluation of the right upper quadrant was performed. Color Doppler imaging was used to assess vascular flow. FINDINGS: The liver is mildly enlarged measuring 17.6 cm in craniocaudal dimension. There is increased echogenicity of the hepatic parenchyma. There are no infiltrating or discrete hepatic masses identified. There is normal hepatopetal flow in the main portal vein. The gallbladder is well visualized and distended. The gallbladder wall measures up to 3.2 mm in thickness. There are no shadowing gallstones. There is no pericholecystic fluid. The patient had a negative ultrasonographic Wolf's sign. The common bile duct measures 3.4 mm in diameter. Limited images of the pancreas demonstrate no gross abnormalities. The aorta is incompletely evaluated an otherwise grossly normal in course and caliber. The right kidney is normal in size measuring 12.8 x 4.9 x 4.8 cm. The right renal cortex measures 1.2 cm in thickness. There is mild distention of the right renal pelvis. There are no shadowing right renal calculi. There are no infiltrating or discrete right renal masses. There is normal echogenicity of the right kidney relative to the adjacent liver. IMPRESSION: 1. Mild distention of the right renal pelvis, likely representing hydronephrosis without shadowing renal calculi. 2. Mildly enlarged fatty liver.
[2018-02-17] MEDS ORDERED: METOCLOPRAMIDE HCL 10 MG TABLET PO ONE (01:32)
[2018-02-17 01:40] VITALS: BP 108/56
== END 2018-02-17 01:40 | disposition home or self-care (01) ==
LOC: ER 21:29
DX: R10.10 Upper abdominal pain, unspecified (principal); R11.2 Nausea with vomiting, unspecified; K21.9 Gastro-esophageal reflux disease without esophagitis; I10 Essential (primary) hypertension
CPT/HCPCS: 99284; 36415; 83690; 84703; 85025; 80053; 81001; 76705; S0119; J3490

== ENCOUNTER 2018-02-23 12:44 | Emergency (ER) | payer MEDICAID ==
[2018-02-23 12:56] VITALS: BP 129/82
[2018-02-23] MEDS ORDERED: ACETAMINOPHEN 325 MG TABLET PO ONE (13:10)
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
== END 2018-02-23 13:46 | disposition home or self-care (01) ==
LOC: ER 12:44
DX: M25.532 Pain in left wrist (principal); Y04.8XXA Assault by other bodily force, initial encounter; Y93.89 Activity, other specified; I10 Essential (primary) hypertension; J45.909 Unspecified asthma, uncomplicated; Z87.81 Personal history of (healed) traumatic fracture
CPT/HCPCS: 99284; 73110; J3490